=== PATIENT | female | born 1940 | race Caucasian/White ===

== ENCOUNTER 2018-06-30 14:42 | Outpatient (REF) | payer SELFPAY | END 2018-06-30 14:43 | LOC: OM 14:42 | PROVIDERS: PCP Nurse Practitioner; Visit Provider Nurse Practitioner Family | DX: Z11.1 Encounter for screening for respiratory tuberculosis (principal) ==

== ENCOUNTER 2018-07-02 15:54 | Outpatient (REF) | payer SELFPAY | END 2018-07-02 15:55 | LOC: OM 15:54 | PROVIDERS: PCP Nurse Practitioner; Visit Provider Nurse Practitioner Family | DX: Z11.1 Encounter for screening for respiratory tuberculosis (principal) ==

== ENCOUNTER 2018-11-27 10:05 | Outpatient (CLI) | payer MEDICARE, BC, SELFPAY ==
[2018-11-27 10:35] LABS: HCT 43.1 % (36.0-46.0); HGB 14.2 g/dL (12.0-15.5)
[2018-11-27 11:26] LABS: Anion Gap 8.5 mmol/L (3-11); CO2 29.5 mmol/L (21.0-32.0); Chloride 102 mmol/L (98-107); Potassium 3.6 mmol/L (3.5-5.1); Sodium 140 mmol/L (136-145)
== END 2018-11-27 10:25 ==
PROVIDERS: PCP Nurse Practitioner; Visit Provider Obstetrics & Gynecology
DX: N81.10 Cystocele, unspecified (principal); N81.6 Rectocele; Z01.818 Encounter for other preprocedural examination
CPT/HCPCS: 36415; 80051; 86850; 86900; 86901; 85014; 85018

== ENCOUNTER 2018-12-03 09:47 | Observation (INO) | payer MEDICARE, BC, SELFPAY ==
[2018-12-03] VITALS (13 sets, daily range): BP systolic 115–170; BP diastolic 54–78; PULSE 73–90; RESP 14–18; TEMP 36.5–36.8; O2SAT 94–96
[2018-12-03] MEDS: Lactated Ringers 1,000 ML 125 ML IV ×2 (10:40→17:03)
--- NOTE | 2018-12-03 15:27 | VAG_PTH ---
PATIENT: FANNIE DALLAS LOC: OBS U#:[id number] AGE/SX: 78/F ROOM: OBS.306 RE12/03/[address]: Aga Freeman MD : [id number] BED: A DIS: 12/04/2018 SPEC #: [id number] RECD: 12/03/18 16:20 STATUS: ALEXIS REQ #: [id number] NICHOL: 12/03/18 15:[address]: Aga Freeman DEPT: Surgical Specimen RECD BY: Sarah Pulliam ENTERED: 12/03/18 16:21 SP TYPE: VAG OTHR DR: Jessica Simeon Tissues: 1 - VAGINAL BIOPSY Procedures: GROSS AND MICRO LEVEL 2 Comments: [id number]
[2018-12-03] MEDS: Ketorolac 30 MG/ML VIAL IVP ×2 (17:12→23:24)
[2018-12-03] MEDS: Docusate Sodium 100 MG CAP PO (20:37)
[2018-12-04 00:26] VITALS: BP 117/87; PULSE 77; RESP 18; TEMP 36.9; O2SAT 99
[2018-12-04] MEDS: Ketorolac 30 MG/ML VIAL IVP (04:02)
[2018-12-04 04:16] VITALS: BP 111/48; PULSE 80; RESP 18; TEMP 36.9
[2018-12-04 08:00] VITALS: BP 134/64; PULSE 81; RESP 16; TEMP 36.9; O2SAT 94
[2018-12-04] MEDS: Docusate Sodium 100 MG CAP PO (08:24)
[2018-12-04] MEDS: Multivitamin w/Minerals TAB 1 TAB PO (08:24)
[2018-12-04] MEDS: Calcium Carbonate 1.5 GM TAB PO (08:24)
[2018-12-04] MEDS: Omeprazole 20 MG CAPCR PO (08:25)
--- NOTE | 2018-12-04 14:15 | ROE_ITS ---
DATE OF PROCEDURE: December 03, 2018 PREOPERATIVE DIAGNOSIS: Cystocele and rectocele. POSTOPERATIVE DIAGNOSIS: Cystocele and rectocele. PROCEDURE: Anterior colporrhaphy. SURGEON: Aga Freeman M.D. COMMERCIAL FIELD INSPECTOR: Yohana Boothe M.D. ANESTHESIA: General. COMPLICATIONS: None. ESTIMATED BLOOD LOSS: 250 cc FLUID: Per Anesthesia records. SPECIMENS: Vaginal epithelium. FINDINGS: Fourth degree cystocele and minimal rectocele at end of procedure. PROCEDURE: The patient was taken to the Operating Room where she was properly identified. She was then placed on the operating table in the dorsal supine position and general anesthesia was induced without difficulty. The patient was then placed in the dorsal lithotomy position and prepped and draped in sterile fashion. A formal time-out procedure was then performed confirming patient and procedure. A Chu catheter was placed. The posterior vagina was tagged laterally with Allis clamps above the defect. A transverse incision was made between the Allis clamps with a 15 blade. Then, using the Metzenbaum scissors, the midline vaginal mucosa was undermined to a level approximately 3 mm from the urethra. The bladder was dissected off the vaginal epithelium both sharply and bluntly. Once the cystocele was entirely reduced two Kellie plication sutures were placed at the UV junction with #2-0 Vicryl. The remainder of the fascia was reapproximated with #2-0 Vicryl in an interrupted fashion. Once the defect was completely closed, the vaginal mucosa was trimmed and the vaginal mucosa was closed with #0 Vicryl in a running fashion. The rectocele was reinspected. It was minimal. Thus, it was decided not to repair as there was good pelvic support. The vagina was packed with Kerlix impregnated with Premarin vaginal cream. The Chu was left in situ. Sponge, lap, needle, and instrument counts were correct x2. The patient was taken to the Recovery Room in stable condition.
--- NOTE | 2018-12-05 15:04 | W.PM.OP ---
Date of service: 12/03/18 Time of Service: 10:00 Operative Note PRE-OP DIAGNOSIS: cystocele POST-OP DIAGNOSIS: same PROCEDURE: anterior colporraphy SURGEON: Aga Freeman ASSISTING SURGEON: Yohana Boothe ANESTHESIA: GETA ESTIMATED BLOOD LOSS: 300 PATHOLOGY: other (vaginal epithelium) COMPLICATIONS: None Patient was transported to: PACU Patient's condition: stable Implants: none Indications: 4th degree midline cystocele Findings: 4th degree cystocele Procedure Description: Patient was taken to the operating room where she was properly identified. She was then placed on the table in dorsal supine position general anesthesia was induced without difficulty then she was placed in dorsal lithotomy position prepped and draped in normal sterile fashion. A formal timeout procedure was then performed confirming patient and procedure. A posterior weighted speculum was then placed the most caudal aspect of the anterior fascial defect was found in the vaginal epithelium with grasped laterally beyond defect the midline of the anterior vaginal epithelium was undermined and injected with quarter percent Marcaine with epinephrine. A transverse incision was made in the posterior vaginal wall between the Allis clamps the vaginal mucosa was undermined with the Metzenbaums scissors and incised to the level approximately 3 cm 3 mm below the urethral opening. The vaginal epithelium was dissected away from the bladder posteriorly both sharply and bluntly the edges of the pupil vesicular fascia were identified laterally
== END 2018-12-04 13:45 | disposition home or self-care (01) ==
LOC: PDS 16:17 → OBS 18:23 → PDS 12-05 16:04
PROVIDERS: Admitting Provider Obstetrics & Gynecology; PCP Nurse Practitioner; Visit Provider Obstetrics & Gynecology
PROC: 0JQC0ZZ Repair Pelvic Region Subcutaneous Tissue and Fascia, Open Approach (ICD-10-PCS; CPT 57260; principal; 2018-12-03 11:30)
DX: N81.11 Cystocele, midline (principal); N81.6 Rectocele; K21.9 Gastro-esophageal reflux disease without esophagitis
CPT/HCPCS: 57240; 88305; 88302; J0690; J1885

== ENCOUNTER 2019-05-08 10:04 | Outpatient (CLI) | payer MEDICARE, BC, SELFPAY ==
[2019-05-08 11:23] LABS: HCT 42.7 % (36.0-46.0); HGB 14.1 g/dL (12.0-15.5); Mean Corpuscular Hemoglobin 28.8 pg (27.0-33.0); Mean Corpuscular Volume 87.3 fL (80-95); Mean Platelet Volume 10.5 fL (8.0-11.0); Platelet Count 269 x1000/uL (130-400); RBC 4.89 m/cumm (4.00-5.20); RBC Distribution Width 13.3 % (11.7-14.6); White Blood Cell Count 7.43 k/cumm (4.4-10.8)
[2019-05-08 11:38] LABS: ALT 18 U/L (12-78); AST 20 U/L (15-37); Albumin 3.7 g/dL (3.4-5.0); Alkaline Phosphatase 132 U/L (46-116); Anion Gap 9.6 mmol/L (3-11); BUN 21 mg/dL (7-18); Bilirubin, Total 0.4 mg/dL (0.2-1.0); CO2 29.4 mmol/L (21.0-32.0); CREATININE 0.72 mg/dL (0.55-1.02); Calcium 9.3 mg/dL (8.5-10.1); Chloride 101 mmol/L (98-107); Glucose 96 mg/dL (70-100); Potassium 3.5 mmol/L (3.5-5.1); Sodium 140 mmol/L (136-145); Total Protein 7.3 g/dL (6.4-8.2)
== END 2019-05-08 10:24 ==
PROVIDERS: PCP Nurse Practitioner; Visit Provider Obstetrics & Gynecology
DX: N81.10 Cystocele, unspecified (principal); R53.83 Other fatigue
CPT/HCPCS: 36415; 80053; 85027; 86850; 86900; 86901

== ENCOUNTER 2019-05-08 13:11 | Outpatient (CLI) | payer MEDICARE, BC, SELFPAY | END 2019-05-08 13:31 | PROVIDERS: PCP Nurse Practitioner; Visit Provider Obstetrics & Gynecology | DX: Z01.810 Encounter for preprocedural cardiovascular examination (principal); R00.0 Tachycardia, unspecified; N81.10 Cystocele, unspecified; R53.83 Other fatigue | CPT/HCPCS: 36415; 80053; 85027; 86850; 86900; 86901; 93005; 93010 ==

== ENCOUNTER 2019-05-11 12:53 | Outpatient (REF) | payer MEDICARE, BC, SELFPAY ==
[2019-05-11 18:39] LABS: TSH (W/Ref FT4) 1.11 uIU/mL (0.358-3.74)
== END 2019-05-11 13:13 ==
LOC: NCHCN 12:53
PROVIDERS: PCP Nurse Practitioner; Visit Provider Family Medicine
DX: R00.0 Tachycardia, unspecified (principal)
CPT/HCPCS: 84443

== ENCOUNTER 2019-05-14 11:41 | Observation (INO) | payer MEDICARE, BC, SELFPAY ==
[2019-05-08 13:27] VITALS: BP 135/78; PULSE 118; RESP 18; TEMP 37.1; O2SAT 94
[2019-05-08 13:31] VITALS: BP 135/78; PULSE 118; RESP 18; TEMP 37.1; O2SAT 94
--- NOTE | 2019-05-08 14:58 | NUR.NOTE ---
PT SCHEDULED FOR PRE OP VISIT AT 11:00 THIS MORNING. PT NO SHOWED, [facility] NOTIFIED AND PT WAS CONTACTED BY THE OFFICE. PT CAME TO PRE OP AT 1300. HISTORY AND MEDICATIONS WERE REVIEWED WITH PT AND VITAL SIGNS TAKE. PT WAS NOTED TO HAVE A HIGH PULSE AT 118. AFTER VERIFYING INFORMATION WITH PT IT WAS APPARENT THAT THE PT WAS UNCLEAR ABOUT WHAT THE SURGICAL PROCEDURE WAS GOING TO BE STATING I'VE HAD A PARTIAL HYSTERECTOMY THIS TIME SHE'S GOING TO TAKE MY OVARIES AND SEW IT UP [facility] WAS CONTACTED DUE TO SCHEDULED SURGERY AND PT'S KNOWLEDGE OF PROPOSED PROCEDURE NOT AGREEING. PT WAS SENT FOR EKG, WHILE WAITING TO HEAR FROM DR. COATES. EKG WAS COMPLETED AND REVIEWED BY KURT SILVA CRNA WHO ENCOURAGED PT TO SPEAK WITH DR. COATES REGARDING FAST HEART RATE AND TO BE SEEN BY PCP. [facility] REQUESTED THAT PT RETURN TO THE OFFICE TO BE SEEN BY DR. COATES. THIS NURSE ESCORTED PT TO [facility] AND WAS WITNESS TO DR. COATES CLARIFYING THE VAGINAL LE FORT PROCEDURE, WHICH DID NOT INVOLVE TAKING OUT THE OVARIES THAT WOULD BE A DIFFERENT PROCEDURE, PT STATED OH WELL, JUST LEAVE THEM THERE THEN. THE EKG WAS REVIEWED BY DR. COATES, I RELAYED KURT SILVA'S RECOMMENDATIONS TO HER. DR. COATES DID ASK THE PT TO FOLLOW UP WITH HER PCP, PT DID STATE THAT SHE IS NOT HAPPY WITH PCP, STATES SHE DOESN'T HEAR ME, WE DON'T SEE EYE TO EYE. ENCOURAGED HER TO FIND SOMEONE THAT SHE WOULD LIKE TO SEE FOR HER CARE AND TO LET HER OFFICE KNOW, SO THAT SHE COULD SEND A NOTE WITH ALONG WITH THE EKG. PT WAS AGREEABLE TO TRYING A NEW OFFICE. ursing Note:
[2019-05-14] VITALS (12 sets, daily range): BP systolic 140–177; BP diastolic 56–97; PULSE 74–93; RESP 13–20; TEMP 35.9–37; O2SAT 90–97
[2019-05-14] MEDS: Lactated Ringers 1,000 ML 125 ML IV ×3 (08:37→20:28)
--- NOTE | 2019-05-14 10:43 | W.PM.HP.N ---
Date of service: 05/14/19 Time of Service: 10:43 Assessment and Plan (1) Vaginal prolapse: Current visit: Yes Status: Acute [place] r/b/a reviewed with patient consent signed at preop History of Present Illness Chief Complaint: vaginal prolapse Narrative: 78 yo female s/p ant/posterior repair within the year and now has failure with vaginal prolapse options pessary, sacrospinous ligament fixation and [place] discussed with patient Review of Systems Review of Systems All systems reviewed & are unremarkable except as noted in HPI and below PFSH Medical History Basal cell carcinoma, face GERD (gastroesophageal reflux disease) Surgical History Abdominal hysterectomy bladder sling Social History Smoking/Tobacco Use Status: Former Tobacco Use Drug use: Never Number of Children: 3 Pets and animals: Yes Sexually active: No Do you think of yourself as: straight/heterosexual Current gender identity: female Meds Home Medications Medication Instructions Recorded Confirmed Type cholecalciferol (vitamin D3) 1,000 unit PO DAILY 06/12/16 05/14/19 History [Vitamin D3] zwvobaizrbug-dktw-wnvlu acid 1 ea PO DAILY 06/12/16 05/14/19 History [Daily Multiple Tablet] omeprazole 20 mg PO DAILY tab-cap 06/12/16 05/14/19 History estradiol [Estrace] 42.5 gm VG DAILY #1 tube 08/02/16 05/08/19 History calcium carbonate 600 mg calcium 600 mg PO BID tab 11/27/18 05/14/19 History (1,500 mg) tablet metoprolol succinate ER 25 mg 25 mg PO DAILY 05/11/19 05/14/19 History tablet,extended release 24 hr Allergies Allergy/AdvReac Type Severity Reaction Status Date / Time No Known Allergies Allergy Unverified 05/14/19 08:15 Exam Narrative Exam Narrative: 78 yo cooperative alert oriented x3 Neck Neck: normal visual inspection Resp Effort & Inspection: normal respiratory effort Auscultation: clear to auscultation bilaterally Cardio Rate: other Rhythm: regular rhythm Heart Sounds: S1 normal and S2 normal Speculum Exam - Vagina: other (complete vaginal prolapse) Results Last Vital Signs Temp 35.9 C L 05/14/19 08:04 Pulse 92 H 05/14/19 08:04 Resp 18 05/14/19 08:04 BP 161/74 H 05/14/19 08:04 Pulse Ox 96 05/14/19 08:04
[2019-05-14] MEDS: ceFAZolin 2 GM/50 ML BAG IVPB (10:45)
--- NOTE | 2019-05-14 11:47 | W.PM.DS.N ---
DS: Diagnosis Discharge Diagnosis (1) Vaginal prolapse: Status: Acute Discharge Plan Disposition Patient Disposition: HOME Condition: Stable Discharge Details Reason For Visit: VAGINAL PROLAPSE Admit Date/Time: 05/14/19 11:41 Admit Provider: Aga Freeman Attending Provider: Aga Freeman Primary Care Provider: Jessica Simeon Hospital Course Hospital Course: 05/14/19 admitted as observation and underwent [place] procedure without difficulty. Postop course uneventful, pain controlled, voiding well and ambulating well Discharged home 05/15/19 in stable condition. Home Meds and New Rx's Prescriptions: New acetaminophen [Mapap Extra Strength] 500 mg Tablet 500 mg PO Q4H PRN PRNQty: 30 RF: 0 Continued calcium carbonate [Calcium 600] 600 mg calcium (1,500 mg) tablet 600 mg PO BID RF: 0 omeprazole 20 MG capsule,delayed release(DR/EC) 20 mg PO DAILY RF: 0 cholecalciferol (vitamin D3) [Vitamin D3] 1,000 UNIT capsule 1,000 unit PO DAILY RF: 0 Daily Multiple 1 EACH tablet 1 ea PO DAILY RF: 0 Discontinued estradiol [Estrace] 42.5 GM cream 42.5 gm VG DAILY Qty: 1 RF: 1 No Action ibuprofen [Advil] 200 mg tablet 200 mg PO PRN RF: 0 metoprolol succinate 25 mg tablet extended release 24 hr 50 mg PO DAILY RF: 0 Discharge Instructions Stand Alone Forms: [facility] Post Gynecology Surgery, Nursing Discharge Form Referrals: Aga Freeman [ [facility] STAFF PHYSICIAN] - 05/27/19 2:00 pm Activity:: Activity as Tolerated Equipment/Supplies:: No Equipment Needed Diet:: As Tolerated Discharge Orders Discharge Orders: Discharge Order (Routine); Ordered 05/15/19 Ordered By: Aga Freeman Discharge Data Discharge Date/Time-TO BE ENTERED AT DEPARTURE: 05/15/19 09:24 DS: Data Vitals/I&O Vitals and I&O: Vital Signs Temperature 35.9 C L 05/14/19 08:04 Pulse 92 H 05/14/19 08:04 Pulse Rhythm Regular 05/14/19 08:04 Respiratory Rate 18 05/14/19 08:04 Respiratory Effort Non-Labored 05/14/19 08:04 Respiratory Depth Normal 05/14/19 08:04 Respiratory Pattern Normal 05/14/19 08:04 Blood Pressure 161/74 H 05/14/19 08:04 Pulse Oximetry 96 05/14/19 08:04 Oxygen Delivery Method Room Air 05/14/19 08:04 Oxygen Flow Rate 0 05/14/19 08:04 Pain Level 0 05/14/19 08:04 Intake & Output 05/13/19 05/13/19 05/14/19 11:59 23:59 11:59 Intake Total 50 / 50 Balance 50 / 50 Weight 71.2 kg Intake: IV 50 / 50 Other: Urine Color Pale Urine Appearance Clear PFSH Medical History (Updated 06/09/19 @ 10:31 by Kim [employer]) Basal cell carcinoma, face GERD (gastroesophageal reflux disease) Tachycardia (Acute) Surgical History (Updated 06/09/19 @ 10:29 by Kim [employer]) History of abdominal hysterectomy (Acute) History of bladder suspension procedure (Acute) History of cholecystectomy (Chronic) History of lumbar discectomy (Acute) History of umbilical hernia repair (Acute) Status post biopsy of thyroid gland (Acute) Family History (Updated 06/09/19 @ 10:21 by Kim [employer]iposthallie) Father Lymphoma Social History (Updated 06/09/19 @ 10:21 by Kim [employer]iposthallie) Smoking/Tobacco Use Status: Former Tobacco Use Quit Date: 11/25/99 Tobacco: How many years used: 30 Alcohol Intake: never Drug use: Never Number of Children: 3 Do you need help understanding health information?: Rarely current occupation: Retired Pets and animals: Yes Sexually active: No Do you think of yourself as: straight/heterosexual Current gender identity: female
[2019-05-14] MEDS: Calcium Carbonate 1.5 GM TAB 0.6 GM PO (20:25)
[2019-05-14] MEDS: Docusate Sodium 100 MG CAP PO (20:25)
[2019-05-14] MEDS: Acetaminophen 500 MG TAB PO (20:51)
[2019-05-15] MEDS: Lactated Ringers 1,000 ML 125 ML IV (03:04)
[2019-05-15] MEDS: Acetaminophen 500 MG TAB PO (03:20)
[2019-05-15 04:01] VITALS: BP 123/80; PULSE 95; RESP 18; TEMP 37.2; O2SAT 93
[2019-05-15 07:20] VITALS: BP 127/85; PULSE 69; RESP 18; TEMP 36.6; O2SAT 100
[2019-05-15] MEDS: Calcium Carbonate 1.5 GM TAB 0.6 GM PO (07:47)
[2019-05-15] MEDS: Omeprazole 20 MG CAPCR PO (07:47)
[2019-05-15] MEDS: Docusate Sodium 100 MG CAP PO (07:47)
[2019-05-15] MEDS: Multivitamin TAB 1 TAB PO (07:47)
[2019-05-15] MEDS: Metoprolol CR 25 MG TABCR PO (07:47)
[2019-05-15] MEDS: Cholecalciferol (Vitamin D3) 1,000 UNIT TAB 1000 UNITS PO (07:48)
--- NOTE | 2019-05-15 08:19 | W.PM.PROGNOT ---
Date of Service Date of service: 05/15/19 Time of Service: 08:20 Assessment and Plan (1) Vaginal prolapse: Current visit: Yes Status: Acute doing well postop ready to go home discharge instructions reviewed follow up 05/27/19 at 2pm Subjective Patient reports: no new complaints, tolerating a regular diet and voiding w/o difficulty Exam Narrative Exam Narrative: awake alert comfortable Resp Effort & Inspection: normal respiratory effort Auscultation: clear to auscultation bilaterally Cardio Rate: regular rate Rhythm: regular rhythm GI Inspection: normal to inspection External Female Exam: other (minimal spotting) Objective Objective Clinical Data: Vital Signs Temperature 37.2 C 05/15/19 04:01 Temperature Source Tympanic 05/15/19 04:01 Pulse 95 H 05/15/19 04:01 Pulse Rhythm Regular 05/15/19 06:00 Respiratory Rate 18 05/15/19 04:01 Respiratory Effort Non-Labored 05/15/19 06:00 Respiratory Depth Normal 05/15/19 06:00 Respiratory Pattern Normal 05/15/19 06:00 Blood Pressure 123/80 05/15/19 04:01 Pulse Oximetry 93 L 05/15/19 04:01 Oxygen Delivery Method Room Air 05/15/19 04:01 Oxygen Flow Rate 0 05/15/19 04:01 Pain Level 4 05/15/19 03:20 Intake & Output 05/14/19 05/14/19 05/15/19 11:59 23:59 11:59 Intake Total 750 / 2412.917 1662.917 / 2412.917 1075 / 1075 Output Total 1200 / 1200 825 / 825 Balance 750 / 1212.917 462.917 / 1212.917 250 / 250 Weight 71.2 kg Intake: IV 750 / 6576.142 8123.917 / 1972.917 825 / 825 Oral 440 / 440 250 / 250 Output: Urine 1200 / 1200 825 / 825 Other: Urine Color Pale Pale Pale Urine Appearance Clear Clear Clear Urine Odor None Emesis Description None None Voiding Methods Toilet
--- NOTE | 2019-05-15 15:17 | PDOC.CMDIS ---
- If Service Date Differs Date of service: 05/15/19 Time of Service: 15:17 LACE Index Scoring Tool - Questions: Length of Stay (in days): 1 Acuity (Admit via E.D.?): No E.D. Visits: 0 - Answers: Total Score: 1 Risk of Readmission: Low Risk Care Management Discharge Reason for Hospitalization: vaginal prolapse Discharge Plan: Veena will be discharged home with no additional services.She will be transported via private vehicle with friends or family. She will follow up with her surgeon and discharge plan of care. Patient/Family Education Needs: Discharge plan, limitations, follow up plan of care, Ask Me Three.
--- NOTE | 2019-05-18 10:34 | ROE_ITS ---
DATE OF PROCEDURE: May 14, 2019 PREOPERATIVE DIAGNOSIS: Vaginal prolapse. POSTOPERATIVE DIAGNOSIS: Same. PROCEDURE: Vaginal [place]. SURGEON: Aga Freeman M.D. PHYSICAL THERAPIST AIDE: Willie Enciso M.D. ANESTHESIA: General. COMPLICATIONS: None. ESTIMATED BLOOD LOSS: < 100 cc's FLUIDS: Per Anesthesia records. FINDINGS: Fourth-degree vaginal prolapse with enterocele. PROCEDURE: The patient was taken to the Operating Room where she was properly identified. She was t hen placed on the operating table in a dorsal supine position. SCD boots were placed. General anest hesia was induced without difficulty. The patient was then placed in the dorsal lithotomy position a nd prepped and draped in the normal sterile fashion. A formal time-out procedure was then performed, confirming patient and procedure. A Chu catheter was placed. The vagina was grasped on the later al edges at the most posterior point and brought to the introitus. Using a marking pen, a square was marked on both the anterior and posterior vagina. This area was then infiltrated with 1% Lidocaine with epinephrine. Along the marked edges of the square a #15 blade was used to incise the tissue. T he tissue was then undermined with the Metzenbaum scissors and the epithelial layer removed anteriorl y. Attention was then turned to the posterior aspect, and again in a similar fashion, along the edges of the already inked square, a #15 blade was used to incise the mucosa. Using the Metzenbaum scissors the tissue was undermined and the square epithelial area excised. Then using #0 Vicryl in an interru pted fashion the anterior to posterior epithelium was approximated. This continued anterior to poste rior in a similar fashion until the entire epithelial layer of anterior and posterior were reapproxim ated. The vagina was then closed. Hemostasis was confirmed. The Chu was left in situ. Sponge, lap, needle and instrument counts were correct x2. The patient was taken to the recovery room in sta ble condition.
== END 2019-05-15 09:24 | disposition home or self-care (01) ==
LOC: MS 12:31
PROVIDERS: Admitting Provider Obstetrics & Gynecology; PCP Nurse Practitioner; Visit Provider Obstetrics & Gynecology
PROC: 0ULG7ZZ Occlusion of Vagina, Via Natural or Artificial Opening (ICD-10-PCS; CPT 57260; principal; 2019-05-14 09:45)
DX: N81.10 Cystocele, unspecified (principal); N81.5 Vaginal enterocele; K21.9 Gastro-esophageal reflux disease without esophagitis
CPT/HCPCS: 57120; 99239; NC; G0378; J0690; J1100; J2405

== ENCOUNTER 2019-05-27 16:49 | Outpatient (CLI) | payer MEDICARE, BC, SELFPAY ==
--- NOTE | 2019-05-27 15:15 | DI.RAD_ITS ---
SYMPTOMS/DIAGNOSIS: RIGHT LOWER LOBE PAIN, R63.4, ABNORMAL WEIGHT LOSS, RIGHT MID BACK PAIN PA AND LATERAL CHEST: There is a moderate-sized right pleural effusion. There is volume loss involving the right lower lobe and prominence of the right hilum. The left lung is clear. The heart is not enlarged. SUMMARY: Moderate-sized right pleural effusion, right hilar prominence is demonstrated. Further assessment with a right thoracentesis and when appropriate a followup with contrast enhanced chest CT is suggested.
== END 2019-05-27 17:09 ==
PROVIDERS: PCP Nurse Practitioner; Visit Provider Obstetrics & Gynecology
DX: R63.4 Abnormal weight loss (principal); R07.89 Other chest pain; J90 Pleural effusion, not elsewhere classified; R91.8 Other nonspecific abnormal finding of lung field
CPT/HCPCS: 71046

== ENCOUNTER → 2019-06-04 08:36 | Outpatient (BNVA) | payer MEDICARE, BC, SELFPAY | PROVIDERS: PCP Nurse Practitioner Family; Referring Provider Nurse Practitioner; Visit Provider Surgery | DX: J90 Pleural effusion, not elsewhere classified (principal); R10.13 Epigastric pain | CPT/HCPCS: 99202; 99214 ==

== ENCOUNTER 2019-06-04 11:09 | Outpatient (CLI) | payer MEDICARE, BC, SELFPAY ==
--- NOTE | 2019-06-04 10:30 | DI.CT_ITS ---
SYMPTOMS/DIAGNOSIS: EPIGASTRIC PAIN, DYSPHAGIA, RIGHT PLEURAL EFFUSION, R10.13, J90 CT SCAN OF THE CHEST AND ABDOMEN: CT SCAN OF THE CHEST: Comparison chest x-ray is 05/27/19. Multiple contiguous axial images of the chest were obtained. There is a 3.1 x 3.3 cm soft tissue mass in the left suprahilar region. There are multiple hypodense lesions seen within the thyroid gland, the largest appears to lie in the right thyroid gland and measures 1.1 cm. Nonemergent thyroid ultrasound may be considered for further evaluation. There are enlarged mediastinal and right hilar lymph nodes. There is a 1.5 x 1.1 cm right paratracheal lymph node. There is a 1.3 x 2.0 cm subcarinal lymph node. There is a 2.1 cm right hilar lymph node. There is a 2.6 x 3.4 cm mass in the medial aspect of the right upper lobe suspicious for neoplasm. There is consolidation seen in the right lower lobe. This may represent atelectasis or pneumonia. There is a large right pleural effusion. No evidence of a left pleural effusion is seen. There is focal nodular thickening seen of the diaphragmatic pleura (series 3 image 512). There is also focal thickening seen at the parietal pleural surface inferiorly and medially (series 3 image 481). This area measures 1.8 x 0.7 cm. There is atherosclerosis of the thoracic aorta but no aneurysmal dilatation is present. The heart size is within normal limits. No significant pericardial effusion is seen. There is a destructive lesion of the posterior aspect of the right 10th rib with associated soft tissue mass. There does appear to be some erosive change of the adjacent cortex of the right transverse process of the D10 vertebra. IMPRESSION: 1. Mass in the medial aspect of the right upper lobe suspicious for neoplasm. 2. Left supraclavicular and mediastinal adenopathy, large right pleural effusion, thickening of the right diaphragmatic and parietal pleural surfaces and a right 10th rib destructive lesion. These findings are most suspicious for metastatic disease. 3. Right lower lobe area of consolidation. This may represent atelectasis or pneumonia. 4. Multiple nonspecific thyroid nodules. Nonemergent thyroid ultrasound may be considered for further evaluation. 5. PET/CT scan should be considered for further evaluation. CT SCAN OF THE ABDOMEN: There is a 1 x 1.1 cm hypodense lesion in the medial aspect of the posterior segment of the right lobe of the liver (series 5 image 188). There is an area of decreased attenuation seen along the dome of the right lobe of the liver measuring 1.3 x 1 cm (series 5 image 93). Given the findings in the chest, metastatic disease should be considered. There are two tiny hypodensities seen in the left lobe of the liver. They are too small for further characterization, but may reflect cysts. The patient is status post cholecystectomy. There is no biliary ductal dilatation. The pancreas is unremarkable, as are the spleen and adrenal glands. The kidneys show normal and symmetric enhancement. No evidence of a solid renal mass or obstruction. There is atherosclerosis of the abdominal aorta, but no aneurysmal dilatation is present. There is adenopathy seen in the retroperitoneum and retrocrural region. There is a 1.1 x 1.3 cm lymph node in the retrocrural region on the right. There is adenopathy in the upper abdomen superior to the celiac axis. This measures in aggregate 4.2 x 3.8 cm. There is a 1.5 x 2.2 cm left periaortic lymph node. On the most inferior images, there appears to be soft tissue in the anterior abdomen suspicious for omental metastatic disease. The visualized bowel shows no evidence of obstruction or inflammation. No abdominal ascites is seen. No pneumoperitoneum is present. Degenerative changes are seen in the spine. IMPRESSION: 1. Hypodense lesion seen in the liver suspicious for metastases. 2. Enlarged lymph nodes in the upper abdomen suspicious for metastases. 3. Soft tissue seen at the inferior-most images of the abdominal cavity anteriorly. The findings are suspicious for omental metastatic disease. 4. CT scan of the pelvis is recommended to evaluate for extent of disease process. PET/CT scan should be considered for further evaluation.
[2019-06-04] MEDS: Breeza Beverage 473 ML BTL PO (12:06)
[2019-06-04] MEDS: Omnipaque 350 MG/ML 50 ML BTL PO (12:07)
[2019-06-04] MEDS: Omnipaque 350 MG/ML 100 ML BTL IV (12:07)
== END 2019-06-04 11:29 ==
PROVIDERS: PCP Nurse Practitioner Family; Visit Provider Surgery
DX: R10.13 Epigastric pain (principal); R13.10 Dysphagia, unspecified; J90 Pleural effusion, not elsewhere classified; R59.0 Localized enlarged lymph nodes; E04.8 Other specified nontoxic goiter; K76.89 Other specified diseases of liver; K66.8 Other specified disorders of peritoneum; R91.8 Other nonspecific abnormal finding of lung field
CPT/HCPCS: 99214; 71260; 74160; J3490; Q9967

== ENCOUNTER 2019-07-13 01:33 | Outpatient (CLI) | payer MEDICARE, BC, SELFPAY ==
--- NOTE | 2019-07-13 10:18 | DI.RAD_ITS ---
SYMPTOM/DIAGNOSIS: F/U RECURRENT RT PLEURAL EFFUSION, S/P PLEURAL BIOPSY J90 PA AND LATERAL CHEST: 07/13 The examination is compared to previous examination of 05/27/19. The patient reportedly has a history of lung carcinoma. There is increasing size of a right pleural effusion in comparison with the prior examination. Right suprahilar mass again noted, grossly unchanged. The left lung is clear. No left pleural effusion seen. CONCLUSION: Increasing size right pleural effusion.
== END 2019-07-13 01:53 ==
PROVIDERS: PCP Nurse Practitioner; Visit Provider Thoracic Surgery (Cardiothoracic Vascular Surgery)
DX: J90 Pleural effusion, not elsewhere classified (principal); Z85.118 Personal history of other malignant neoplasm of bronchus and lung
CPT/HCPCS: 71046

== ENCOUNTER 2019-07-13 11:09 | Emergency (ER) | payer MEDICARE, BC, SELFPAY ==
--- NOTE | 2019-07-13 11:25 | W.ED.GENAD ---
Discharge Plan Disposition Patient Disposition: HOME Discharge Details Clinical Impression: Pleural effusion on right Primary Care Provider: Maddie Rosenthal ED Provider: Jerry Crain Home Meds and New Rx's Prescriptions: No Action calcium carbonate [Calcium 600] 600 mg calcium (1,500 mg) tablet 600 mg PO BID RF: 0 ibuprofen [Advil] 200 mg tablet 200 mg PO PRN RF: 0 omeprazole 20 MG capsule,delayed release(DR/EC) 20 mg PO DAILY RF: 0 cholecalciferol (vitamin D3) [Vitamin D3] 1,000 UNIT capsule 1,000 unit PO DAILY RF: 0 Daily Multiple 1 EACH tablet 1 ea PO DAILY RF: 0 metoprolol succinate 25 mg tablet extended release 24 hr 50 mg PO DAILY RF: 0 acetaminophen [Mapap Extra Strength] 500 mg Tablet 500 mg PO Q4H PRN PRNQty: 30 RF: 0 Discharge Instructions Instructions: Pleural Effusion (ED) Additional Instructions: Please follow-up with your oncologist. Please contact your primary care physician to arrange follow-up. Return to the ER for any worsening or new concerning symptoms. Referrals: Maddie Rosenthal, TJ [Primary Care Provider] - Medical Decision Making 70-year-old female with lung cancer, sent here erroneously for initial concern for pulmonary embolism on chest x-ray. Chest x-ray that was performed outpatient today was reviewed and interpreted by radiology as increasing size right pleural effusion. Patient is saturating well in no respiratory distress. Plan will be for her to follow-up with her oncologist. Usual customary discharge instructions were provided. HPI General Mode of arrival: ambulatory. Date/Time Provider Initiated Documentation: 07/13/19 11:17. Limitations to Documentation: no limitations. Information obtained by: patient. HPI Narrative: 78-year-old female with newly diagnosed non-small cell lung cancer with plan to start chemotherapy today, sent to the ED by nurse practitioner cancer with concerned that chest x-ray showed a pulmonary embolism. After the patient arrived in the emergency department, the nurse practitioner at the cancer center called again noting that in fact patient does not have a pulmonary embolism and that she does not need ED evaluation and should be return to the cancer center. Related Data Home Medications Medication Instructions Recorded Confirmed Daily Multiple 1 ea PO DAILY 06/12/16 06/04/19 cholecalciferol (vitamin D3) 1,000 unit PO DAILY 06/12/16 06/04/19 [Vitamin D3] omeprazole 20 mg PO DAILY tab-cap 06/12/16 06/04/19 calcium carbonate 600 mg calcium 600 mg PO BID tab 11/27/18 06/04/19 (1,500 mg) tablet acetaminophen [Mapap Extra 500 mg PO Q4H PRN PRN #30 tab 05/15/19 06/04/19 Strength] metoprolol succinate 25 mg 50 mg PO DAILY tab 05/27/19 06/04/19 tablet,extended release 24 hr ibuprofen 200 mg tablet 200 mg PO PRN tab 06/04/19 06/04/19 Previous Rx's Medication Instructions Recorded acetaminophen [Mapap Extra 500 mg PO Q4H PRN PRN #30 tab 05/15/19 Strength] Allergies Allergy/AdvReac Type Severity Reaction Status Date / Time No Known Allergies Allergy Verified 06/04/19 08:54 Review of Systems Constitutional Denies fever(s) Cardiovascular Reports chest pain (Pleuritic tightness right lower) and Reports dyspnea on exertion Respiratory Reports dyspnea on exertion [facility] Medical History Basal cell carcinoma, face GERD (gastroesophageal reflux disease) Tachycardia (Acute) Surgical History History of abdominal hysterectomy (Acute) History of bladder suspension procedure (Acute) History of cholecystectomy (Chronic) History of lumbar discectomy (Acute) History of umbilical hernia repair (Acute) Status post biopsy of thyroid gland (Acute) Family History Father Lymphoma Social History Smoking/Tobacco Use Status: Former Tobacco Use Quit Date: 11/25/99 Tobacco: How many years used: 30 Alcohol Intake: never Drug use: Never Number of Children: 3 Do you need help understanding health information?: Rarely current occupation: Retired Pets and animals: Yes Sexually active: No Do you think of yourself as: straight/heterosexual Current gender identity: female Exam Const General: cooperative and no acute distress HENMT Mouth: moist mucous membranes Eyes Conjunctivae: normal conjunctivae Sclera: normal sclerae Neck Neck: trachea midline and supple Resp Effort & Inspection: normal respiratory effort, able to speak in complete sentences and no respiratory distress Auscultation: diminished lung sounds on the right in the lower lung macdonald, no rales, no rhonchi and no wheezes Cardio Jugular venous pressure: no JVD Rate: regular rate and not tachycardic Rhythm: regular rhythm Skin General skin exam: no rashes or lesions noted Neuro General: alert, awake and tone normal Extrem General: no edema
[2019-07-13 11:42] VITALS: PULSE 95; O2SAT 97
== END 2019-07-13 11:43 | disposition home or self-care (01) ==
LOC: ER 11:41
PROVIDERS: Emergency Provider Student in an Organized Health Care Education/Training Program; PCP Nurse Practitioner
DX: J90 Pleural effusion, not elsewhere classified (principal); C34.11 Malignant neoplasm of upper lobe, right bronchus or lung
CPT/HCPCS: 99281; 99282; 71046

== ENCOUNTER 2019-07-20 08:10 | Outpatient (CLI) | payer MEDICARE, BC, SELFPAY ==
[2019-07-20 08:29] LABS: Abs Immature Grans 0.03 k/cumm (0.0-0.09); Absolute Basophil Count 0.02 k/cumm (0.0-0.2); Absolute Eosinophil Count 0.21 k/cumm (0.0-0.7); Absolute Lymphocyte Count 0.93 k/cumm (1.2-3.4); Absolute Monocyte Count 0.49 k/cumm (0.11-0.7); Absolute Neutrophil Count 5.15 k/cumm (1.2-6.7); Basophils % 0.3; Eosinophils % 3.1; HCT 39.3 % (36.0-46.0); HGB 13.2 g/dL (12.0-15.5); Immature Grans % 0.4; Lymphocytes % 13.6; Mean Corp. HGB Concentration 33.6 g/dL (32.0-36.0); Mean Corpuscular Volume 86.4 fL (80-95); Mean Platelet Volume 9.5 fL (8.0-11.0); Monocytes % 7.2; Neutrophils % 75.4; Platelet Count 344 x1000/uL (130-400); RBC 4.55 m/cumm (4.00-5.20); RBC Distribution Width 12.9 % (11.7-14.6); White Blood Cell Count 6.83 k/cumm (4.4-10.8)
[2019-07-20 08:48] LABS: ALT 21 U/L (14-59); AST 20 U/L (15-37); Albumin 2.9 g/dL (3.4-5.0); Alkaline Phosphatase 98 U/L (46-116); Anion Gap 6.8 mmol/L (3-11); BUN 17 mg/dL (7-18); Bilirubin, Total 0.5 mg/dL (0.2-1.0); CO2 33.2 mmol/L (21.0-32.0); CREATININE 0.86 mg/dL (0.55-1.02); Chloride 96 mmol/L (98-107); Glucose 107 mg/dL (70-100); Sodium 136 mmol/L (136-145); Total Protein 6.6 g/dL (6.4-8.2)
[2019-07-20 08:53] LABS: Potassium 2.9 mmol/L (3.5-5.1)
== END 2019-07-20 08:30 ==
PROVIDERS: PCP Nurse Practitioner; Visit Provider Registered Nurse Oncology
DX: C77.9 Secondary and unspecified malignant neoplasm of lymph node, unspecified (principal)
CPT/HCPCS: 36415; 80053; 85025

== ENCOUNTER 2019-07-28 01:14 | Outpatient (CLI) | payer MEDICARE, BC, SELFPAY ==
[2019-07-28 10:09] LABS: Abs Immature Grans 0.01 k/cumm (0.0-0.09); Absolute Basophil Count 0.02 k/cumm (0.0-0.2); Absolute Eosinophil Count 0.05 k/cumm (0.0-0.7); Absolute Lymphocyte Count 0.88 k/cumm (1.2-3.4); Absolute Monocyte Count 0.52 k/cumm (0.11-0.7); Absolute Neutrophil Count 2.76 k/cumm (1.2-6.7); Basophils % 0.5; Eosinophils % 1.2; HCT 38.2 % (36.0-46.0); Immature Grans % 0.2; Lymphocytes % 20.8; Mean Corpuscular Volume 85.1 fL (80-95); Mean Platelet Volume 9.2 fL (8.0-11.0); Monocytes % 12.3; Platelet Count 302 x1000/uL (130-400); RBC 4.49 m/cumm (4.00-5.20); RBC Distribution Width 13.3 % (11.7-14.6); White Blood Cell Count 4.24 k/cumm (4.4-10.8)
[2019-07-28 10:32] LABS: ALT 23 U/L (14-59); AST 17 U/L (15-37); Albumin 3.1 g/dL (3.4-5.0); Alkaline Phosphatase 123 U/L (46-116); Anion Gap 10.7 mmol/L (3-11); BUN 18 mg/dL (7-18); Bilirubin, Total 0.4 mg/dL (0.2-1.0); CO2 27.3 mmol/L (21.0-32.0); CREATININE 0.76 mg/dL (0.55-1.02); Calcium 9.4 mg/dL (8.5-10.1); Chloride 97 mmol/L (98-107); Glucose 113 mg/dL (70-100); Potassium 3.2 mmol/L (3.5-5.1); Sodium 135 mmol/L (136-145); Total Protein 6.9 g/dL (6.4-8.2)
== END 2019-07-28 01:34 ==
PROVIDERS: PCP Nurse Practitioner; Visit Provider Registered Nurse Oncology
DX: C77.9 Secondary and unspecified malignant neoplasm of lymph node, unspecified (principal)
CPT/HCPCS: 36415; 80053; 85025

== ENCOUNTER 2019-08-03 01:06 | Outpatient (CLI) | payer MEDICARE, BC, SELFPAY ==
[2019-08-03 08:51] LABS: Abs Immature Grans 0.02 k/cumm (0.0-0.09); Absolute Basophil Count 0.03 k/cumm (0.0-0.2); Absolute Eosinophil Count 0.04 k/cumm (0.0-0.7); Absolute Monocyte Count 0.51 k/cumm (0.11-0.7); Absolute Neutrophil Count 5.07 k/cumm (1.2-6.7); Basophils % 0.4; Eosinophils % 0.6; HCT 38.4 % (36.0-46.0); Immature Grans % 0.3; Lymphocytes % 16.2; Mean Corp. HGB Concentration 33.9 g/dL (32.0-36.0); Mean Corpuscular Hemoglobin 29.1 pg (27.0-33.0); Mean Corpuscular Volume 86.1 fL (80-95); Mean Platelet Volume 9.3 fL (8.0-11.0); Monocytes % 7.5; Platelet Count 294 x1000/uL (130-400); RBC 4.46 m/cumm (4.00-5.20); White Blood Cell Count 6.77 k/cumm (4.4-10.8)
[2019-08-03 09:19] LABS: ALT 19 U/L (14-59); AST 17 U/L (15-37); Albumin 3.4 g/dL (3.4-5.0); Alkaline Phosphatase 102 U/L (46-116); Anion Gap 11.1 mmol/L (3-11); BUN 21 mg/dL (7-18); Bilirubin, Total 0.5 mg/dL (0.2-1.0); CO2 27.9 mmol/L (21.0-32.0); CREATININE 0.77 mg/dL (0.55-1.02); Calcium 9.4 mg/dL (8.5-10.1); Chloride 99 mmol/L (98-107); FREE T4 1.46 ng/dL (0.76-1.46); Glucose 98 mg/dL (70-100); LDH 148 U/L (81-234); Potassium 3.4 mmol/L (3.5-5.1); Sodium 138 mmol/L (136-145); TSH 1.01 uIU/mL (0.36-3.74)
== END 2019-08-03 01:26 ==
PROVIDERS: PCP Nurse Practitioner; Visit Provider Registered Nurse Oncology
DX: C77.9 Secondary and unspecified malignant neoplasm of lymph node, unspecified (principal); J91.8 Pleural effusion in other conditions classified elsewhere; C34.91 Malignant neoplasm of unspecified part of right bronchus or lung; Z79.899 Other long term (current) drug therapy
CPT/HCPCS: 36415; 80053; 83615; 84439; 84443; 85025

== ENCOUNTER 2019-08-03 15:24 | Outpatient (CLI) | payer MEDICARE, BC, SELFPAY ==
--- NOTE | 2019-08-03 14:24 | DI.RAD_ITS ---
SYMPTOMS/DIAGNOSIS: INCREASING SHORTNESS OF BREATH AND DYSPNEA ON EXERTION, STAGE IV LUNG CA, RIGHT, C34.91, H/O PLEURAL EFFUSION PA AND LATERAL CHEST: The heart is not enlarged. There is a large right pleural effusion and there has been no gross interval change in appearance in comparison with previous examination of July 13. No left pleural effusion seen. Right hilar prominence noted as seen on previous examination. Findings consistent with pulmonary neoplasm. CONCLUSION: No gross interval change in appearance in comparison with examination of 07/13/19, large right pleural effusion and findings suspicious for neoplasm.
== END 2019-08-03 15:44 ==
PROVIDERS: PCP Nurse Practitioner; Visit Provider Registered Nurse Oncology
DX: R06.02 Shortness of breath (principal); R06.09 Other forms of dyspnea; C34.91 Malignant neoplasm of unspecified part of right bronchus or lung; J90 Pleural effusion, not elsewhere classified; Z79.899 Other long term (current) drug therapy
CPT/HCPCS: 36415; 80053; 71046; 83615; 84439; 84443; 85025

== ENCOUNTER 2019-08-10 01:28 | Outpatient (CLI) | payer MEDICARE, BC, SELFPAY ==
[2019-08-10 09:12] LABS: Abs Immature Grans 0.05 k/cumm (0.0-0.09); Absolute Basophil Count 0.02 k/cumm (0.0-0.2); Absolute Eosinophil Count 0.09 k/cumm (0.0-0.7); Absolute Lymphocyte Count 0.95 k/cumm (1.2-3.4); Absolute Monocyte Count 0.49 k/cumm (0.11-0.7); Absolute Neutrophil Count 3.76 k/cumm (1.2-6.7); Basophils % 0.4; Eosinophils % 1.7; HCT 36.3 % (36.0-46.0); HGB 12.6 g/dL (12.0-15.5); Immature Grans % 0.9; Lymphocytes % 17.7; Mean Corp. HGB Concentration 34.7 g/dL (32.0-36.0); Mean Corpuscular Hemoglobin 29.4 pg (27.0-33.0); Mean Corpuscular Volume 84.8 fL (80-95); Mean Platelet Volume 9.8 fL (8.0-11.0); Monocytes % 9.1; Neutrophils % 70.2; Platelet Count 261 x1000/uL (130-400); RBC 4.28 m/cumm (4.00-5.20); RBC Distribution Width 13.8 % (11.7-14.6); White Blood Cell Count 5.36 k/cumm (4.4-10.8)
[2019-08-10 09:26] LABS: ALT 64 U/L (14-59); AST 34 U/L (15-37); Albumin 3.7 g/dL (3.4-5.0); Alkaline Phosphatase 112 U/L (46-116); Anion Gap 12.9 mmol/L (3-11); BUN 36 mg/dL (7-18); Bilirubin, Total 1.2 mg/dL (0.2-1.0); CO2 26.1 mmol/L (21.0-32.0); CREATININE 1.34 mg/dL (0.55-1.02); Chloride 95 mmol/L (98-107); Estimated GFR 38.25 (mL/min/1.73m2); Glucose 111 mg/dL (70-100); Potassium 3.3 mmol/L (3.5-5.1); Sodium 134 mmol/L (136-145); Total Protein 7.1 g/dL (6.4-8.2)
== END 2019-08-10 01:48 ==
PROVIDERS: PCP Nurse Practitioner; Visit Provider Registered Nurse Oncology
DX: C77.9 Secondary and unspecified malignant neoplasm of lymph node, unspecified (principal)
CPT/HCPCS: 36415; 80053; 85025

== ENCOUNTER 2019-08-14 10:29 | Emergency (ER) | payer MEDICARE, BC, SELFPAY ==
[2019-08-14] VITALS (7 sets, daily range): BP systolic 97–124; BP diastolic 51–82; PULSE 106–128; RESP 16–22; TEMP 36.3–36.4; O2SAT 94–97
--- NOTE | 2019-08-14 11:08 | ED.GENADUL_ITS ---
Discharge Plan Disposition Patient Disposition: HOME Condition: Improving Discharge Details Chief Complaint: Dizzy/Sync Clinical Impression: Acute dehydration, Hypomagnesemia, Hypokalemia, UTI (urinary tract infection) Primary Care Provider: Maddie Rosenthal ED Provider: Ksenia Henriquez Home Meds and New Rx's Prescriptions: New cephalexin [Keflex] 500 mg capsule 500 mg PO BID Qty: 10 RF: 0 promethazine 25 mg tablet 25 mg PO QID PRN (Reason: nausea and vomiting) Qty: 10 RF: 0 Continued calcium carbonate 600 mg calcium (1,500 mg) tablet 600 mg PO DAILY RF: 0 tramadol 50 mg tablet 50 mg PO Q6H PRN (Reason: pain) RF: 0 ondansetron HCl [Zofran] 4 mg tablet 4 mg PO Q6H PRN (Reason: nausea and vomiting) Qty: 60 RF: 2 ibuprofen [Advil] 200 mg tablet 200 mg PO PRN RF: 0 omeprazole 20 MG capsule,delayed release(DR/EC) 20 mg PO DAILY RF: 0 cholecalciferol (vitamin D3) [Vitamin D3] 1,000 UNIT capsule 1,000 unit PO DAILY RF: 0 Daily Multiple 1 EACH tablet 1 ea PO DAILY RF: 0 metoprolol succinate 25 mg tablet extended release 24 hr 50 mg PO DAILY RF: 0 potassium chloride 10 mEq tablet,ER particles/crystals 10 meq PO BID RF: 0 prochlorperazine maleate 10 mg tablet 10 mg PO Q6H PRNRF: 0 olanzapine 2.5 mg tablet 2.5 mg PO QHS RF: 0 diphenhydramine HCl 25 mg capsule 75 mg PO QHS RF: 0 acetaminophen [Mapap Extra Strength] 500 mg Tablet 500 mg PO Q4H PRN PRNQty: 30 RF: 0 Discharge Instructions Instructions: Dehydration (ED), Urinary Tract Infection in Women (ED), Hypomagnesemia (ED) Additional Instructions: Encourage hydration. Please use the Phenergan as prescribed to help with nausea. Please take Keflex as prescribed for urinary tract infection. Please keep appointment on Saturday at [address] Barker. Plan for home health daily. If you develop fever/chills, increased weakness, inability stay hydrated or other new/worsening symptoms please seek care urgently once again. Please begin daily magnesium supplementation. Referrals: Toya Carbajal MD [ [facility]FF PHYSICIAN] - Maddie Rosenthal NP [Primary Care Provider] - Discharge Data Discharge Date/Time-TO BE ENTERED AT DEPARTURE: 08/14/19 15:26 Medical Decision Making Patient is a 78 year old female presenting today with c/c of dizziness. Patient has hx of lung cancer, gerd, pleural effusion. States that this began when she started chemotherapy several weeks ago. Reports that it has progressively been worsening. Symptoms come on when she goes to an upright position, particualry with sudden changes. Was evaluated by home health who dx with orthostatic hypotension as she had >30 point drop in systolic BP per patietn report. Denies SHIPMAN. No visual changes. Endorses generalized weakness that has also been increasing, no focal areas of deficit. Denies fevers/chills. Denies any pain at this time. She lives alone and reports that the dizziness can make it difficult for her to care for her pets. Also noted diminished appetite ad that she has not been eating/drinking much. Concerned for dehydration. She has not been taking her antiemetics as she does not frequently feel significant nauseated. Has home health once weekly at this time. Son in law iwth her who is very attentive. Has upcoming appointment with palliative care. EKG reviewed by Dr. Baig. Patient in sinus tachycardia with rate of 123. No evidence of acute ischmic injury. Shortly after arrival, Dr. Carbajal called regarding the patient. Son in law had contacted the office. Discussed case. Advised that we are planning ot hydrate the patient. I am concerned that she may have some underlying GI upset leading to her diminished PO intake thus her dehydration. Will give Zofran, IV hydration, obtain labs and reevaluate. Dr. Carbajal in agreement with this plan. Labs reviewed. WBC 2.04, Hgb 11.0, K 3.4, BUN 24, magnesium 0.8, TSH normal, Troponin normal UA significant for moderate luekocyte esterase, ketones, protein. While the patietn is not endorsing any urinary symptoms, with her receiving chemotherapy and leukopenia, I feel that treating this with abx is appropriate. Discussed plan with the patient and her family. She is feeling improved but family is concerned about her returning home. She feels much stronger and appears better after IV hydration. She is requesting food. Hydrating orally. Consult with the Dr. Carbajal once again. Discussed plan of care. I discussed that the family is concerned with patient going home and inability to care for herself and likely to have recurrence of her dehydration. Dr. Carbajal arranged for daily home health visits which makes both the patient and her family very happy. She is hydrating well here, eating soup. Patient received hydration, her tachycardia is downtrending. She is requesting discharge. Family is close and is able to help her tonight. Home health will be with her tomorrow. She is able to eat/drink more, advised she continue with antiemetic. She was given strict return precautions. All of her questions and concerns were addressed, she is in agreement with this plan. HPI General Mode of arrival: ambulatory . Date/Time Provider Initiated Documentation: 08/14/19 10:49 . Limitations to Documentation: no limitations . Information obtained by: patient, family and RN notes reviewed . History of Present Illness 78 year old F presents to the emergency department with the chief complaint of dizziness, described as moderate, with intensity rated at 5 (states that it can become severe when she initially stands, none now, currently supine). Patient started experiencing this week(s) and it has been intermittent. Immobilization improves symptom(s), Movement worsens symptoms . Patient notes loss of appetite, nausea/vomiting (endorses nausea, no vomiting) and weakness (generalized); denies confusion, chest pain, cough, diaphoresis, fever/chills, headaches, malaise, rash, shortness of breath and syncope. Patient did receive the following treatments prior to arrival, none Related Data Home Medications Medication Instructions Recorded Confirmed Daily Multiple 1 ea PO DAILY 06/12/16 06/04/19 cholecalciferol (vitamin D3) 1,000 unit PO DAILY 06/12/16 06/04/19 [Vitamin D3] omeprazole 20 mg PO DAILY tab-cap 06/12/16 06/04/19 acetaminophen [Mapap Extra 500 mg PO Q4H PRN PRN #30 tab 05/15/19 06/04/19 Strength] metoprolol succinate 25 mg 50 mg PO DAILY tab 05/27/19 06/04/19 tablet,extended release 24 hr ibuprofen 200 mg tablet 200 mg PO PRN tab 06/04/19 06/04/19 calcium carbonate 600 mg calcium 600 mg PO DAILY 07/16/19 (1,500 mg) tablet ondansetron HCl 4 mg tablet 4 mg PO Q6H PRN #60 tab 07/16/19 07/16/19 tramadol 50 mg tablet 50 mg PO Q6H PRN 07/16/19 potassium chloride 10 mEq 10 meq PO BID 07/29/19 tablet,extended release(part/cryst) prochlorperazine maleate 10 mg 10 mg PO Q6H PRN 08/11/19 tablet diphenhydramine HCl 25 mg capsule 75 mg PO QHS cap 08/12/19 olanzapine 2.5 mg tablet 2.5 mg PO QHS 08/12/19 cephalexin [Keflex] 500 mg PO BID #10 cap 08/14/19 promethazine 25 mg PO QID PRN #10 tab 08/14/19 Previous Rx's Medication Instructions Recorded acetaminophen [Mapap Extra 500 mg PO Q4H PRN PRN #30 tab 05/15/19 Strength] ondansetron HCl 4 mg tablet 4 mg PO Q6H PRN #60 tab 07/16/19 cephalexin [Keflex] 500 mg PO BID #10 cap 08/14/19 promethazine 25 mg PO QID PRN #10 tab 08/14/19 Allergies Allergy/AdvReac Type Severity Reaction Status Date / Time No Known Allergies Allergy Verified 08/14/19 10:41 General Stated Complaint: Dizzy/Sync ROSALBA: 2 Review of Systems Constitutional Constitutional: Reports as per HPI, Denies chills, Reports fatigue, Denies fever(s), Denies frequent falls, Denies headache(s), Reports poor appetite, Denies snoring and Reports weakness Eyes Eyes: Reports as per HPI, Denies blurry vision, Denies change in vision and Reports photophobia ENT Ears, Nose, Mouth, and Throat: Denies vertigo, Reports dizziness (light headed), Denies headache(s) and Denies neck pain Cardiovascular Cardiovascular: Reports as per HPI, Denies chest pain, Denies syncope, Denies lightheadedness, Denies radiating jaw, neck or arm pain, Denies dyspnea and Denies dyspnea on exertion Respiratory Respiratory: Reports as per HPI, Denies chest congestion, Denies cough, Denies dyspnea, Denies dyspnea on exertion, Denies snoring, Denies stridor and Denies wheezing Gastrointestinal Gastrointestinal: Reports as per HPI, Denies abdominal pain, Denies change in bowel habits, Reports nausea and Denies vomiting Genitourinary Genitourinary: Reports system reviewed and no additional complaints, except as docu (patient denies change in urinary habits) Musculoskeletal Musculoskeletal: Reports as per HPI, Denies back pain, Denies myalgias, Denies muscle cramps, Denies neck pain and Denies numbness Integumentary/Breasts Skin/Breast: Reports as per HPI and Denies rash Neurologic Neurologic: Reports as per HPI, Denies abnormal movements, Denies abnormal speech, Denies behavioral changes, Denies confusion, Denies vertigo, Reports dizziness (light headed), Denies syncope, Denies frequent falls, Denies headache(s), Denies focal weakness, Denies numbness, Denies sensory deficit and Reports weakness Psychiatric Psychiatric: Denies behavioral changes and Denies confusion Endocrine Endocrine: Reports fatigue Allergic/Immunologic Allergic/Immunologic: Denies wheezing [facility] Medical History Basal cell carcinoma, face GERD (gastroesophageal reflux disease) Tachycardia (Acute) Surgical History History of abdominal hysterectomy (Acute) History of bladder suspension procedure (Acute) History of cholecystectomy (Chronic) History of lumbar discectomy (Acute) History of umbilical hernia repair (Acute) Status post biopsy of thyroid gland (Acute) Social History Smoking/Tobacco Use Status: Former Tobacco Use Quit Date: 11/25/99 Tobacco: How many years used: 30 Alcohol Intake: never Drug use: Never Caregiver/Support person: No Number of Children: 3 Communication Needs: None Do you need help understanding health information?: Rarely current occupation: Retired Pets and animals: Yes Sexually active: No Do you think of yourself as: straight/heterosexual Current gender identity: female What is your relationship status?: How often do you talk on the phone with friends or family?: three or more times per week How often do you get together with friends or relatives?: three or more times per week Do you belong to any clubs or organized social groups?: no Panel score (0-1 are the most socially isolated patients): 1 What type of physical activity do you participate in: none Seatbelt use: always Drive intox or ride w/intox emergency medical technician/driver: No Water heater temp set <120 deg: Yes Working smoke detector in home: Yes Fire extinguisher in home: Yes Carbon monox detector in home: Yes Firearms in home: No Do you feel safe at home: Yes Do you feel safe in your relationship?: Yes Exam Const General: cooperative, comfortable, no acute distress, well developed, well groomed and ill appearing chronically Nutritional Appearance: average body habitus and well nourished Orientation: alert, awake and oriented x3 HENAZ Head: normal to inspection, no palpable skull fracture, normocephalic and atraumatic Ears: hearing grossly normal bilaterally, external ears normal and TM's normal bilaterally General nose exam: external nose normal Mouth: oral mucosae normal and moist mucous membranes Throat: posterior oropharynx normal Eyes General: appearance normal, both eyes and all related structures Alignment and Position: alignment normal Periorbital: periorbital findings normal Eyelids: eyelids normal Sclera: sclerae normal Cornea: corneas normal Pupils: PERRL EOM: EOM intact bilaterally Neck Neck: normal visual inspection, full ROM, no lymphadenopathy and no meningeal signs Resp Effort & Inspection: normal respiratory effort, able to speak in complete sentences and no respiratory distress Auscultation: clear to auscultation bilaterally, no rales, no rhonchi and no wheezes Cardio Rate: regular rate Rhythm: regular rhythm Heart Sounds: S1 normal and S2 normal GI Inspection: normal to inspection and non-distended Palpation: soft, no hepatosplenomegaly, not firm, no guarding, not rigid and nontender Percussion: normal to percussion Auscultation: normal bowel sounds Skin General skin exam: no rashes or lesions noted Neuro General: alert, awake and oriented x3 Cranial Nerves: CN's II-XI intact bilaterally Cognition: normal cognition Speech: speech normal Gait: normal gait Motor: muscle tone normal throughout, strength 5/5 throughout, no pronator drift, no movement abnormalities noted and no fasciculations Sensory Exam: no sensory deficits noted Coordination: nonmak-am-dfap test normal and lrub-nd-[id number] test normal Extrem General: normal to inspection, normal capillary refill, no pedal edema and no calf tenderness Psych Appearance: grossly normal and well kempt Mental Status: mental status grossly normal Speech and Movement: speech and movement normal Course Vital Signs Vital signs: Vital Signs Temperature 36.4 C L 08/14/19 10:35 Pulse 114 H 08/14/19 10:35 Respiratory Rate 16 08/14/19 10:35 Blood Pressure 111/74 08/14/19 10:35 Pulse Oximetry 96 08/14/19 10:35 Temperature 36.4 C L 08/14/19 10:35 Temperature Source Skin 08/14/19 10:35 Pulse 114 H 08/14/19 10:35 Respiratory Rate 16 08/14/19 10:35 Respiratory Effort Short of Breath 08/14/19 10:39 Blood Pressure 111/74 08/14/19 10:35 Blood Pressure Position Sitting 08/14/19 10:35 Pulse Oximetry 96 08/14/19 10:35 Oxygen Delivery Method Room Air 08/14/19 10:35 Oxygen Flow Rate 0 08/14/19 10:35
[2019-08-14] MEDS: Ondansetron 4 MG/2 ML VIAL IVP (11:13)
[2019-08-14] MEDS: Normal Saline Flush 10 ML SYR IVP (11:14)
[2019-08-14] MEDS: Normal Saline 1,000 ML 1000 ML IV ×2 (11:16→14:00)
[2019-08-14 11:23] LABS: Absolute Basophil Count 0.01 k/cumm (0.0-0.2); Absolute Eosinophil Count 0.03 k/cumm (0.0-0.7); Absolute Lymphocyte Count 0.88 k/cumm (1.2-3.4); Absolute Neutrophil Count 0.92 k/cumm (1.2-6.7); Basophils % 0.5; Eosinophils % 1.5; Lymphocytes % 43.1; Mean Corp. HGB Concentration 34.4 g/dL (32.0-36.0); Mean Corpuscular Hemoglobin 29.3 pg (27.0-33.0); Mean Corpuscular Volume 85.1 fL (80-95); Mean Platelet Volume 10.3 fL (8.0-11.0); Monocytes % 9.8; Neutrophils % 45.1; RBC 3.76 m/cumm (4.00-5.20); RBC Distribution Width 13.7 % (11.7-14.6); White Blood Cell Count 2.04 k/cumm (4.4-10.8)
[2019-08-14 11:31] LABS: Bilirubin Moderate (Negative); Blood Small (Negative); Clarity Cloudy (Clear); Glucose Negative (Negative); Ketones 80 mg/dL (Negative); Leukocyte Esterase Moderate (Negative); Nitrite Negative (Negative); Urobilinogen 0.2 EU/dL (Up TO 0.2)
[2019-08-14 11:39] LABS: C & S Indicated? Yes; WBC >50 HPF (0-5)
[2019-08-14 11:59] LABS: Platelet Count 145 x1000/uL (130-400)
[2019-08-14 12:00] LABS: Diff Comment Diff Reviewed; RBC Morphology Normal
[2019-08-14 12:10] LABS: ALT 30 U/L (14-59); AST 19 U/L (15-37); Albumin 3.3 g/dL (3.4-5.0); Alkaline Phosphatase 97 U/L (46-116); Anion Gap 14.4 mmol/L (3-11); BUN 24 mg/dL (7-18); Bilirubin, Total 1.1 mg/dL (0.2-1.0); CO2 21.6 mmol/L (21.0-32.0); CREATININE 0.83 mg/dL (0.55-1.02); Calcium 8.3 mg/dL (8.5-10.1); Chloride 100 mmol/L (98-107); Glucose 102 mg/dL (70-100); Magnesium 0.8 mg/dL (1.8-2.4); Potassium 3.4 mmol/L (3.5-5.1); Sodium 136 mmol/L (136-145); TSH 1.35 uIU/mL (0.36-3.74); Total Protein 6.6 g/dL (6.4-8.2)
[2019-08-14 12:13] LABS: Troponin I < 0.05 ng/mL (0.00-0.06)
[2019-08-14] MEDS: Magnesium Oxide 400 MG TAB PO (13:52)
[2019-08-14] MEDS: Cephalexin 500 MG CAP PO (13:53)
[2019-08-14] MEDS: Potassium Chloride 10 MEQ TABCR PO (13:53)
== END 2019-08-14 15:26 | disposition home or self-care (01) ==
PROVIDERS: Emergency Provider Physician Assistant; PCP Nurse Practitioner
DX: E86.0 Dehydration (principal); E83.42 Hypomagnesemia; E87.6 Hypokalemia; N39.0 Urinary tract infection, site not specified; R00.0 Tachycardia, unspecified
CPT/HCPCS: 36415; 80053; 87077; 93005; 96361; 96374; 99284; 81003; 81015; 83735; 84443; 84484; 85025; 87086; 87186; 93010; J2405

== ENCOUNTER 2019-08-17 08:59 | Outpatient (CLI) | payer MEDICARE, BC, SELFPAY ==
[2019-08-17 09:23] LABS: Abs Immature Grans 0.02 k/cumm (0.0-0.09); Absolute Basophil Count 0.02 k/cumm (0.0-0.2); Absolute Eosinophil Count 0.06 k/cumm (0.0-0.7); Absolute Lymphocyte Count 0.76 k/cumm (1.2-3.4); Absolute Monocyte Count 0.27 k/cumm (0.11-0.7); Absolute Neutrophil Count 1.47 k/cumm (1.2-6.7); Basophils % 0.8; Eosinophils % 2.3; HCT 31.2 % (36.0-46.0); HGB 10.4 g/dL (12.0-15.5); Immature Grans % 0.8; Lymphocytes % 29.2; Mean Corp. HGB Concentration 33.3 g/dL (32.0-36.0); Mean Corpuscular Hemoglobin 28.4 pg (27.0-33.0); Mean Corpuscular Volume 85.2 fL (80-95); Mean Platelet Volume 9.6 fL (8.0-11.0); Monocytes % 10.4; Neutrophils % 56.5; Platelet Count 149 x1000/uL (130-400); RBC 3.66 m/cumm (4.00-5.20)
[2019-08-17 09:35] LABS: Diff Comment Agrees w/ Instrument; RBC Morphology Normal
[2019-08-17 09:36] LABS: ALT 35 U/L (14-59); AST 19 U/L (15-37); Albumin 3.1 g/dL (3.4-5.0); Alkaline Phosphatase 95 U/L (46-116); Anion Gap 11.4 mmol/L (3-11); BUN 12 mg/dL (7-18); Bilirubin, Total 0.5 mg/dL (0.2-1.0); CO2 24.6 mmol/L (21.0-32.0); CREATININE 1.09 mg/dL (0.55-1.02); Calcium 7.8 mg/dL (8.5-10.1); Chloride 103 mmol/L (98-107); Estimated GFR 48.55 (mL/min/1.73m2); Glucose 106 mg/dL (70-100); Potassium 3.1 mmol/L (3.5-5.1); Sodium 139 mmol/L (136-145); Total Protein 6.3 g/dL (6.4-8.2)
== END 2019-08-17 09:19 ==
PROVIDERS: PCP Nurse Practitioner; Visit Provider Registered Nurse Oncology
DX: C77.9 Secondary and unspecified malignant neoplasm of lymph node, unspecified (principal); C34.91 Malignant neoplasm of unspecified part of right bronchus or lung; R06.02 Shortness of breath; R06.09 Other forms of dyspnea
CPT/HCPCS: 36415; 80053; 71046; 85025

== ENCOUNTER 2019-08-17 14:27 | Outpatient (CLI) | payer MEDICARE, BC, SELFPAY ==
--- NOTE | 2019-08-17 13:54 | DI.RAD_ITS ---
EXAM: XR CHEST 2V PA LATERAL INDICATION: STAGE IV LUNG CA, RT, C34.91; INCREASING SOB AND CLAROS. COMPARISON: CT CHEST/ABD W from 06/04/2019 XR CHEST 2V PA LATERAL from 08/03/2019 TECHNIQUE: 2D digital imaging was performed. FINDINGS: Heart size is within normal limits. The right hilar prominence is unchanged compared to the prior ex amination there is a stable right pleural effusion. No left pleural effusion is present. There is n o evidence of a pneumothorax. There are degenerative changes seen in the spine. IMPRESSION: Overall there has been no significant change in appearance of the chest x-ray since 08/03/2019.
== END 2019-08-17 14:47 ==
PROVIDERS: PCP Nurse Practitioner; Visit Provider Nurse Practitioner
DX: C34.91 Malignant neoplasm of unspecified part of right bronchus or lung (principal); R06.02 Shortness of breath; R06.09 Other forms of dyspnea
CPT/HCPCS: 71046

== ENCOUNTER → 2019-08-18 13:04 | Outpatient (BNVA) | payer MEDICARE, BC, SELFPAY | PROVIDERS: PCP Nurse Practitioner; Referring Provider Nurse Practitioner; Visit Provider Surgery | DX: J90 Pleural effusion, not elsewhere classified (principal); C34.91 Malignant neoplasm of unspecified part of right bronchus or lung | CPT/HCPCS: 99212; 99213 ==

== ENCOUNTER 2019-08-24 02:32 | Outpatient (CLI) | payer MEDICARE, BC, SELFPAY ==
[2019-08-24 09:15] LABS: Abs Immature Grans 0.04 k/cumm (0.0-0.09); Absolute Basophil Count 0.02 k/cumm (0.0-0.2); Absolute Eosinophil Count 0.12 k/cumm (0.0-0.7); Absolute Lymphocyte Count 0.84 k/cumm (1.2-3.4); Absolute Monocyte Count 0.54 k/cumm (0.11-0.7); Absolute Neutrophil Count 2.53 k/cumm (1.2-6.7); Basophils % 0.5; Eosinophils % 2.9; HCT 33.4 % (36.0-46.0); Lymphocytes % 20.5; Mean Corp. HGB Concentration 32.9 g/dL (32.0-36.0); Mean Corpuscular Hemoglobin 29.3 pg (27.0-33.0); Mean Corpuscular Volume 89.1 fL (80-95); Mean Platelet Volume 9.1 fL (8.0-11.0); Monocytes % 13.2; Neutrophils % 61.9; Platelet Count 212 x1000/uL (130-400); RBC 3.75 m/cumm (4.00-5.20); RBC Distribution Width 17.8 % (11.7-14.6); White Blood Cell Count 4.09 k/cumm (4.4-10.8)
[2019-08-24 09:55] LABS: ALT 26 U/L (14-59); AST 17 U/L (15-37); Albumin 3.1 g/dL (3.4-5.0); Alkaline Phosphatase 94 U/L (46-116); Anion Gap 10.3 mmol/L (3-11); BUN 14 mg/dL (7-18); Bilirubin, Total 0.5 mg/dL (0.2-1.0); CO2 25.7 mmol/L (21.0-32.0); CREATININE 0.93 mg/dL (0.55-1.02); Calcium 8.1 mg/dL (8.5-10.1); Chloride 104 mmol/L (98-107); Estimated GFR 58.31 (mL/min/1.73m2); FREE T4 1.33 ng/dL (0.76-1.46); Glucose 105 mg/dL (70-100); LDH 196 U/L (81-234); Potassium 3.2 mmol/L (3.5-5.1); Sodium 140 mmol/L (136-145); TSH 1.89 uIU/mL (0.36-3.74); Total Protein 6.3 g/dL (6.4-8.2)
== END 2019-08-24 02:52 ==
PROVIDERS: PCP Nurse Practitioner; Visit Provider Registered Nurse Oncology
DX: C77.9 Secondary and unspecified malignant neoplasm of lymph node, unspecified (principal); J91.8 Pleural effusion in other conditions classified elsewhere; Z79.899 Other long term (current) drug therapy; C34.91 Malignant neoplasm of unspecified part of right bronchus or lung
CPT/HCPCS: 36415; 80053; 83615; 84439; 84443; 85025

== ENCOUNTER 2019-08-26 06:03 | Day surgery (SDC) | payer MEDICARE, BC, SELFPAY ==
[2019-08-26 06:22] VITALS: BP 95/59; PULSE 102; RESP 16; TEMP 36.5; O2SAT 93
--- NOTE | 2019-08-26 06:25 | ROE_ITS ---
Date of service: 08/26/19 Time of Service: 07:47 Operative Note Operative Note DATE OF PROCEDURE: 08/26/19 PRE-OP DIAGNOSIS: Lung cancer Right Pleural effusion POST-OP DIAGNOSIS: same PROCEDURE: Right US guided Thoracentesis SURGEON: Caitlin Wynn ANESTHESIA: local (1% Lidocaine 5 cc) ESTIMATED BLOOD LOSS: 0 PATHOLOGY: none sent COMPLICATIONS: None Patient was transported to: same day Patient's condition: stable Indications: Mrs. Waggoner is a pleasant 78 year old diagnosed with lung cancer and is s/p biopsy and pleurodesis. She was seen in the office with some SOB but had been stable for a few months. Risks, benefits and complications were reviewed with her. Questions were entertained and answered to her satisfaction and she wished to proceed. No guarantees were given or implied. Findings: 1200 cc of serous fluid removed Procedure Description: After informed consent was obtained the patient was taken to the procedure room. She was asked to sit at the edge of the bed with her feet on a step stool. The patient was given a table with a pillow to lean against. The back was exposed. US of the Right back was done to find the pocket of fluid. Once the fluid was identified a idris was made on the skin. A time out was done. The patients name, , procedure to be done and side, allergies and antibiotic given were reviewed. Fire risk was assessed. Next the back was prepped and draped in a standard fashion with chlorhexidine. The thoracentesis kit was opened in a sterile fashion. 5 cc of 1% Lidocaine was injected into the dermis, subcutaneous tissue and down between the ribs. A small incision was then made with an 11 blade. The needle and sheath were then slowly introduced until I was able to suction some fluid. At this point the sheath was advanced and the needle was pulled back. The needle was then attached to tubing and to a suction bottle. 1200 cc of light yellow fluid was removed. The sheath was removed and a band aid was applied. The patient was placed back on the gurney and taken back to [facility] in stable condition. The patient tolerated the procedure well and there were no immediate complications. A chest XRay was ordered and is pending at the time of this dictation.
--- NOTE | 2019-08-26 06:38 | W.PM.DSUDISC ---
Discharge Plan Disposition Patient Disposition: HOME Condition: Good Discharge Details Reason For Visit: Thoracentesis Attending Provider: Caitlin Wynn Primary Care Provider: Maddie Rosenthal Home Meds and New Rx's Prescriptions: Continued calcium carbonate 600 mg calcium (1,500 mg) tablet 600 mg PO DAILY RF: 0 tramadol 50 mg tablet 50 mg PO Q6H PRN (Reason: pain) RF: 0 dronabinol 2.5 mg capsule 2.5 mg PO QACDINNER MDD 20 mg Qty: 56 RF: 0 omeprazole 20 MG capsule,delayed release(DR/EC) 20 mg PO DAILY RF: 0 cholecalciferol (vitamin D3) [Vitamin D3] 1,000 UNIT capsule 1,000 unit PO DAILY RF: 0 Daily Multiple 1 EACH tablet 1 ea PO DAILY RF: 0 metoprolol succinate 25 mg tablet extended release 24 hr 50 mg PO DAILY RF: 0 potassium chloride 10 mEq tablet,ER particles/crystals 10 meq PO BID RF: 0 prochlorperazine maleate 10 mg tablet 10 mg PO Q6H PRNRF: 0 olanzapine 2.5 mg tablet 2.5 mg PO QHS RF: 0 cephalexin [Keflex] 500 mg capsule 500 mg PO BID Qty: 8 RF: 0 Discharge Instructions Instructions: Thoracentesis (DC) Additional Instructions: Please call the office or return to the ER if you develop increasing Shortness of breath or chest pain Activity:: Activity as Tolerated Diet:: As Tolerated Discharge Orders Discharge Orders: Discharge Order (Routine); Ordered 08/26/19 Ordered By: Caitlin Wynn DS: Diagnosis Discharge Diagnosis (1) Pleural effusion, right: Status: Acute
--- NOTE | 2019-08-26 07:46 | DI.RAD_ITS ---
EXAM: XR PORTABLE CHEST AP INDICATION: post thoracentesis. COMPARISON: XR CHEST 2V PA LATERAL from 08/17/2019 TECHNIQUE: 2D digital imaging was performed. FINDINGS: There has been interval decrease in size of the right pleural effusion. There is a persistent small right pleural effusion. No pneumothorax is present. The heart size and pulmonary vasculature are wi thin normal limits. The left lung is clear and well expanded. No left pleural effusion or pneumotho rax is identified. IMPRESSION: Interval decrease in size of right pleural effusion status post thoracentesis. Persistent small righ t pleural effusion. No pneumothorax.
== END 2019-08-26 08:20 | disposition home or self-care (01) ==
PROVIDERS: PCP Nurse Practitioner; Visit Provider Surgery
PROC: (CPT 32554; principal; 2019-08-26 07:30)
DX: R06.02 Shortness of breath (principal); C34.91 Malignant neoplasm of unspecified part of right bronchus or lung; J91.8 Pleural effusion in other conditions classified elsewhere; Z79.899 Other long term (current) drug therapy
CPT/HCPCS: 32555; 71045

== ENCOUNTER 2019-08-28 10:11 | Day surgery (SDC) | payer MEDICARE, BC, SELFPAY ==
[2019-08-28 10:46] VITALS: BP 106/77; PULSE 111; RESP 20; TEMP 36.4; O2SAT 97
[2019-08-28] MEDS: Lactated Ringers 1,000 ML 80 ML IV (11:35)
--- NOTE | 2019-08-28 12:36 | DI.RAD_ITS ---
EXAM: RF LINE PLACEMENT OR CLINICAL HISTORY: LUNG CANCER. TECHNIQUE: 2D and realtime digital imaging was performed. C-arm fluoroscopy utilized by Dr. Michael gilbert placement of right Port-A-Cath. Fluoro Time: 21.5 sec COMPARISON: No exams were available for comparison FINDINGS: Hard copy shows Port-A-Cath placement with tip of the catheter in the superior vena cava just above t he right atrium.
--- NOTE | 2019-08-28 13:06 | PDOC.DSDIS_ITS ---
Discharge Plan Disposition Patient Disposition: HOME Condition: Good Discharge Details Reason For Visit: [facility] Attending Provider: Radha Rodriguez Primary Care Provider: Maddie Rosenthal Home Meds and New Rx's Prescriptions: Continued calcium carbonate 600 mg calcium (1,500 mg) tablet 600 mg PO DAILY RF: 0 tramadol 50 mg tablet 50 mg PO Q6H PRN (Reason: pain) RF: 0 dronabinol 2.5 mg capsule 2.5 mg PO QACDINNER MDD 20 mg Qty: 56 RF: 0 omeprazole 20 MG capsule,delayed release(DR/EC) 20 mg PO DAILY RF: 0 cholecalciferol (vitamin D3) [Vitamin D3] 1,000 UNIT capsule 1,000 unit PO DAILY RF: 0 Daily Multiple 1 EACH tablet 1 ea PO DAILY RF: 0 metoprolol succinate 25 mg tablet extended release 24 hr 50 mg PO DAILY RF: 0 potassium chloride 10 mEq tablet,ER particles/crystals 10 meq PO BID RF: 0 prochlorperazine maleate 10 mg tablet 10 mg PO Q6H PRNRF: 0 olanzapine 2.5 mg tablet 2.5 mg PO QHS RF: 0 cephalexin [Keflex] 500 mg capsule 500 mg PO BID Qty: 8 RF: 0 dexamethasone 2 mg tablet 2 mg PO BID RF: 0 oxycodone 5 mg capsule 5 mg PO Q4H PRNRF: 0 sennosides [Senna Lax] 8.6 mg tablet 17.2 mg PO QHS RF: 0 Discharge Instructions Additional Instructions: The top bandage can be removed Saturday in oncology. The steri strips will usually stick for about a week. When the edges start to curl up, they can be removed. It is okay to shower tomorrow, the water can run over the steri strips Do not swim or soak in a tub for two weeks Call for any concerns including fever, increased pain, new shortness of breath, incision redness or drainage. Do not lift more than 15 pounds for two weeks. Walking and stairs are fine. Do not drive if on narcotic pain meds or if limited by pain. May use Tylenol alternating with ibuprofen for pain control. Ice is also an option. The maximum dose for Tylenol is 4000 mg/day. May use ibuprofen 800 mg every 8 hours as needed. If concerned about constipation, you may use a stool softener or milk of magnesia. Activity:: Activity as Tolerated Diet:: As Tolerated Discharge Orders Discharge Orders: Discharge Order (Routine); Ordered 08/28/19 Ordered By: Radha Rodriguez DS: Diagnosis Discharge Diagnosis (1) Cancer of bronchus of right upper lobe: Status: Acute
[2019-08-28] MEDS: ceFAZolin 2,000 MG in Normal Saline 100 ML 200 MG IVPB (13:16)
[2019-08-28] MEDS: Normal Saline 50 ML (13:32)
[2019-08-28] MEDS: Heparin 500 UNITS/5 ML SYRINGE (13:56)
[2019-08-28 14:35] VITALS: BP 126/70; PULSE 103; RESP 17; TEMP 36.7; O2SAT 96
--- NOTE | 2019-08-31 10:25 | ROE_ITS ---
DATE OF PROCEDURE: August 28, 2019 PREOPERATIVE DIAGNOSIS: Metastatic lung cancer. POSTOPERATIVE DIAGNOSIS: Metastatic lung cancer. PROCEDURE: Right subclavian Mediport placement. SURGEON: Radha Rodriguez M.D. ANESTHESIA: Local and sedation. INDICATIONS: This is a 78-year-old woman who is currently undergoing chemotherapy for metastatic rig ht lung cancer. She reports difficulty with IV access during her recent chemotherapy and presents fo r port placement. PROCEDURE: She was placed supine on the operating table and her arms were tucked bilaterally. Her b ilateral chest and neck were prepped and draped sterilely. Sedation was administered. The skin of t he upper right chest was infiltrated with local anesthetic. The right subclavian vein was accessed a fter 2 or 3 attempts with the 18 gauge needle. The wire threaded easily and was shown to be in the s uperior vena cava using fluoroscopy. The wire was clipped to the drape. An incision was made extend ing anteromedially and the subcutaneous tissue divided with cautery to create a pocket above the pect oralis muscle. The catheter was attached to the port and then trimmed to the proper length using flu oroscopy. The peel-away and dilator were passed over the wire and then the wire and dilator removed. The port catheter was passed down the peel-away, which was then removed. The tip of the catheter w as seen to be in the superior vena cava using fluoroscopy. The port was sutured to the chest wall wi th interrupted #2-0 Prolene sutures and the skin closed with interrupted #3-0 Vicryl sutures and the skin closed with a running #4-0 Monocryl subcuticular stitch. The port was accessed with a Nuno jarene dle and aspirated nicely. It was then flushed with 5 cc's of heparinized saline. The wound was dres sed with Steri-Strips and a 2x2 and Tegaderm. She tolerated the procedure well and was stable to rec overy.
== END 2019-08-28 15:50 | disposition home or self-care (01) ==
PROVIDERS: PCP Nurse Practitioner; Visit Provider Surgery
PROC: (CPT 36561; principal; 2019-08-28 12:45)
DX: C34.11 Malignant neoplasm of upper lobe, right bronchus or lung (principal); Z45.2 Encounter for adjustment and management of vascular access device; K21.9 Gastro-esophageal reflux disease without esophagitis
CPT/HCPCS: 36561; 77001; C1788; J0690

== ENCOUNTER 2019-08-31 02:38 | Outpatient (CLI) | payer MEDICARE, BC, SELFPAY ==
[2019-08-31 09:33] LABS: Abs Immature Grans 0.03 k/cumm (0.0-0.09); Absolute Basophil Count 0.03 k/cumm (0.0-0.2); Absolute Eosinophil Count 0.06 k/cumm (0.0-0.7); Absolute Lymphocyte Count 0.65 k/cumm (1.2-3.4); Absolute Neutrophil Count 2.14 k/cumm (1.2-6.7); Eosinophils % 1.9; HCT 30.7 % (36.0-46.0); HGB 10.3 g/dL (12.0-15.5); Lymphocytes % 20.9; Mean Corp. HGB Concentration 33.6 g/dL (32.0-36.0); Mean Corpuscular Hemoglobin 29.2 pg (27.0-33.0); Mean Platelet Volume 9.6 fL (8.0-11.0); Monocytes % 6.4; Neutrophils % 68.8; Platelet Count 160 x1000/uL (130-400); RBC 3.53 m/cumm (4.00-5.20); RBC Distribution Width 16.5 % (11.7-14.6); White Blood Cell Count 3.11 k/cumm (4.4-10.8)
[2019-08-31 09:55] LABS: ALT 78 U/L (14-59); AST 44 U/L (15-37); Albumin 3.2 g/dL (3.4-5.0); Alkaline Phosphatase 104 U/L (46-116); BUN 20 mg/dL (7-18); Bilirubin, Total 1.1 mg/dL (0.2-1.0); CREATININE 0.71 mg/dL (0.55-1.02); Calcium 8.4 mg/dL (8.5-10.1); Chloride 98 mmol/L (98-107); Glucose 104 mg/dL (70-100); LDH 317 U/L (81-234); Sodium 139 mmol/L (136-145); TSH 0.23 uIU/mL (0.36-3.74); Total Protein 6.5 g/dL (6.4-8.2)
[2019-08-31 09:56] LABS: FREE T4 1.82 ng/dL (0.76-1.46)
[2019-08-31 10:03] LABS: Potassium 2.8 mmol/L (3.5-5.1)
== END 2019-08-31 02:58 ==
PROVIDERS: Registered Nurse Oncology; PCP Nurse Practitioner; Visit Provider Student in an Organized Health Care Education/Training Program
DX: C77.9 Secondary and unspecified malignant neoplasm of lymph node, unspecified (principal); J91.8 Pleural effusion in other conditions classified elsewhere; Z79.899 Other long term (current) drug therapy
CPT/HCPCS: 36415; 80053; 83615; 84439; 84443; 85025

== ENCOUNTER 2019-09-14 02:08 | Outpatient (CLI) | payer MEDICARE, BC, SELFPAY ==
[2019-09-14 09:18] LABS: Abs Immature Grans 0.03 k/cumm (0.0-0.09); Absolute Basophil Count 0.03 k/cumm (0.0-0.2); Absolute Eosinophil Count 0.04 k/cumm (0.0-0.7); Absolute Lymphocyte Count 1.11 k/cumm (1.2-3.4); Absolute Monocyte Count 0.53 k/cumm (0.11-0.7); Absolute Neutrophil Count 1.85 k/cumm (1.2-6.7); Basophils % 0.8; Eosinophils % 1.1; HCT 29.1 % (36.0-46.0); HGB 9.4 g/dL (12.0-15.5); Immature Grans % 0.8; Lymphocytes % 30.9; Mean Corp. HGB Concentration 32.3 g/dL (32.0-36.0); Mean Corpuscular Hemoglobin 30.3 pg (27.0-33.0); Mean Corpuscular Volume 93.9 fL (80-95); Mean Platelet Volume 9.5 fL (8.0-11.0); Monocytes % 14.8; Neutrophils % 51.6; Platelet Count 228 x1000/uL (130-400); RBC Distribution Width 22.1 % (11.7-14.6); White Blood Cell Count 3.59 k/cumm (4.4-10.8)
[2019-09-14 09:43] LABS: Anisocytosis 3+; Diff Comment RBC Morph Reviewed; Polychromasia Present
[2019-09-14 09:49] LABS: ALT 26 U/L (14-59); AST 20 U/L (15-37); Albumin 2.8 g/dL (3.4-5.0); Alkaline Phosphatase 103 U/L (46-116); Anion Gap 11.9 mmol/L (3-11); BUN 13 mg/dL (7-18); Bilirubin, Total 0.7 mg/dL (0.2-1.0); CO2 26.1 mmol/L (21.0-32.0); CREATININE 0.72 mg/dL (0.55-1.02); Calcium 7.7 mg/dL (8.5-10.1); Chloride 105 mmol/L (98-107); FREE T4 1.53 ng/dL (0.76-1.46); Glucose 102 mg/dL (70-100); LDH 260 U/L (81-234); Sodium 143 mmol/L (136-145); TSH 0.43 uIU/mL (0.36-3.74)
== END 2019-09-14 02:28 ==
PROVIDERS: PCP Nurse Practitioner; Visit Provider Registered Nurse Oncology
DX: C77.9 Secondary and unspecified malignant neoplasm of lymph node, unspecified (principal); J91.8 Pleural effusion in other conditions classified elsewhere; C34.91 Malignant neoplasm of unspecified part of right bronchus or lung; Z79.899 Other long term (current) drug therapy
CPT/HCPCS: 36415; 80053; 83615; 84439; 84443; 85025

== ENCOUNTER 2019-09-21 02:06 | Outpatient (CLI) | payer MEDICARE, BC, SELFPAY ==
[2019-09-21 09:20] LABS: Abs Immature Grans 0.02 k/cumm (0.0-0.09); Absolute Basophil Count 0.02 k/cumm (0.0-0.2); Absolute Eosinophil Count 0.05 k/cumm (0.0-0.7); Absolute Lymphocyte Count 0.96 k/cumm (1.2-3.4); Absolute Monocyte Count 0.61 k/cumm (0.11-0.7); Absolute Neutrophil Count 3.16 k/cumm (1.2-6.7); Basophils % 0.4; HCT 31.7 % (36.0-46.0); Immature Grans % 0.4; Lymphocytes % 19.9; Mean Corp. HGB Concentration 31.5 g/dL (32.0-36.0); Mean Corpuscular Hemoglobin 30.5 pg (27.0-33.0); Mean Corpuscular Volume 96.6 fL (80-95); Mean Platelet Volume 9.4 fL (8.0-11.0); Monocytes % 12.7; Neutrophils % 65.6; Platelet Count 271 x1000/uL (130-400); RBC 3.28 m/cumm (4.00-5.20); RBC Distribution Width 21.5 % (11.7-14.6); White Blood Cell Count 4.82 k/cumm (4.4-10.8)
[2019-09-21 09:43] LABS: ALT 30 U/L (14-59); AST 23 U/L (15-37); Albumin 2.7 g/dL (3.4-5.0); Alkaline Phosphatase 113 U/L (46-116); BUN 16 mg/dL (7-18); Bilirubin, Total 0.6 mg/dL (0.2-1.0); CREATININE 0.83 mg/dL (0.55-1.02); Calcium 8.2 mg/dL (8.5-10.1); Chloride 104 mmol/L (98-107); FREE T4 1.54 ng/dL (0.76-1.46); Glucose 116 mg/dL (70-100); LDH 241 U/L (81-234); Potassium 3.2 mmol/L (3.5-5.1); Sodium 140 mmol/L (136-145); TSH 0.37 uIU/mL (0.36-3.74); Total Protein 6.2 g/dL (6.4-8.2)
== END 2019-09-21 02:26 ==
PROVIDERS: PCP Nurse Practitioner; Visit Provider Registered Nurse Oncology
DX: C77.9 Secondary and unspecified malignant neoplasm of lymph node, unspecified (principal); J91.8 Pleural effusion in other conditions classified elsewhere; C34.91 Malignant neoplasm of unspecified part of right bronchus or lung; Z79.899 Other long term (current) drug therapy
CPT/HCPCS: 36415; 80053; 83615; 84439; 84443; 85025

== ENCOUNTER 2019-09-21 09:21 | Emergency (ER) | payer MEDICARE, BC, SELFPAY ==
[2019-09-21] VITALS (30 sets, daily range): BP systolic 112–138; BP diastolic 68–78; PULSE 101–149; RESP 16–30; TEMP 36.5–37; O2SAT 93–97
--- NOTE | 2019-09-21 09:26 | W.ED.GENAD ---
Discharge Plan Disposition Patient Disposition: HOME Discharge Details Chief Complaint: SOB Clinical Impression: Pleural effusion, malignant, Hypokalemia, Hypomagnesemia Primary Care Provider: Maddie Rosenthal ED Provider: David Myers Home Meds and New Rx's Prescriptions: No Action calcium carbonate 600 mg calcium (1,500 mg) tablet 600 mg PO DAILY RF: 0 tramadol 50 mg tablet 50 mg PO Q6H PRN (Reason: pain) RF: 0 dronabinol 2.5 mg capsule 2.5 mg PO QACDINNER MDD 20 mg Qty: 56 RF: 0 omeprazole 20 MG capsule,delayed release(DR/EC) 20 mg PO DAILY RF: 0 cholecalciferol (vitamin D3) [Vitamin D3] 1,000 UNIT capsule 1,000 unit PO DAILY RF: 0 Daily Multiple 1 EACH tablet 1 ea PO DAILY RF: 0 potassium chloride 10 mEq tablet,ER particles/crystals 10 meq PO BID RF: 0 prochlorperazine maleate 10 mg tablet 10 mg PO Q6H PRNRF: 0 olanzapine 2.5 mg tablet 2.5 mg PO QHS RF: 0 cephalexin [Keflex] 500 mg capsule 500 mg PO BID Qty: 8 RF: 0 dexamethasone 2 mg tablet 2 mg PO BID RF: 0 oxycodone 5 mg capsule 5 mg PO Q4H PRNRF: 0 sennosides [Senna Lax] 8.6 mg tablet 17.2 mg PO QHS RF: 0 metoprolol succinate 25 mg tablet extended release 24 hr 50 mg PO DAILY Qty: 90 RF: 1 Discharge Instructions Instructions: Hypokalemia (ED), Hypomagnesemia (ED) Additional Instructions: Your right-sided pleural effusion was drained by Dr. Mitchell in the emergency department. We replenished your potassium and magnesium. You are not to get your chemotherapy today. He will follow-up with hematology oncology on the fifth as scheduled. Return to the emerge department should your symptoms worsen Referrals: Maddie Rosenthal, TJ [Primary Care Provider] - 3 days Medical Decision Making 10:00 This is a nontoxic-appearing chronically ill 79-year-old female with a significant history for recurrent pleural effusion secondary to right stage IV lung CA. Vitals demonstrate a baseline tachycardia with questionable MAT on EKG. Her sats are well preserved in the mid to upper 90s on room air. She is not in any surgical respiratory distress. Her jikkg-bf-cgny ultrasound demonstrates a large right-sided pleural effusion with a positive jellyfish sign. Labs pending. Will contact general surgery to discuss thoracentesis today. 11:20 Patient was notable right sided pleural effusion on chest x-ray. Remainder of her labs are unremarkable with baseline hypokalemia with 3.2. She has negative cardiac enzymes. Platelets equal to 70 and her INR is 1.2. She is not on any anticoagulation. Discussed case with Dr. Kern about therapeutic thoracentesis. She will evaluate the patient in the emergency department. Patient made aware. Patient seen by Dr. Mitchell who performed therapeutic thoracentesis in the emergency department. 1-1/2 L of pleural fluid removed. Patient tolerated the procedure well. Magnesium and potassium supplementation given for low values here. She has had no return in her symptoms with a improvement in her pulse rate and respiratory rate status post thoracentesis. Hematology oncology recommends foregoing chemotherapy today. They will follow-up with her on the fifth as scheduled. Discussed return precautions with the patient. She is feeling well enough for discharge at this time. HPI General Date/Time Provider Initiated Documentation: 09/21/19 09:27. HPI Narrative: Patient is a 79-year-old female with a significant history for stage IV right lung cancer status post pleurocentesis secondary to recurrent pleural effusions, DNR/DNI, chronic hypokalemia who presents to the emergency department with worsening shortness of breath, nausea and dizziness. Patient states that she had her blood drawn from outpatient lab today when she suddenly developed lightheadedness/room spinning sensation. The symptoms have subsided however she has noted substantial worsening in her shortness of breath with ambulation. She feels fine sitting on the stretcher however when she ambulates she gets severely short of breath. She states that her symptoms of her breathing are similar to that of her previous pleural effusion. She denies any chest pain. No fevers. She is currently on rounds of chemotherapy and is managed here as well as [facility]. She had a ultrasound-guided thoracentesis performed by Dr. Wynn on 08/26/2019. Related Data Home Medications Medication Instructions Recorded Confirmed Daily Multiple 1 ea PO DAILY 06/12/16 09/21/19 cholecalciferol (vitamin D3) 1,000 unit PO DAILY 06/12/16 09/21/19 [Vitamin D3] omeprazole 20 mg PO DAILY tab-cap 06/12/16 09/21/19 calcium carbonate 600 mg calcium 600 mg PO DAILY 07/16/19 09/21/19 (1,500 mg) tablet tramadol 50 mg tablet 50 mg PO Q6H PRN 07/16/19 09/21/19 potassium chloride 10 mEq 10 meq PO BID 07/29/19 09/21/19 tablet,extended release(part/cryst) prochlorperazine maleate 10 mg 10 mg PO Q6H PRN 08/11/19 09/21/19 tablet olanzapine 2.5 mg tablet 2.5 mg PO QHS 08/12/19 09/21/19 dronabinol 2.5 mg capsule 2.5 mg PO QACDINNER #56 cap [facility] 20 08/18/19 09/21/19 mg cephalexin 500 mg capsule 500 mg PO BID #8 tab-cap 08/21/19 09/21/19 dexamethasone 2 mg tablet 2 mg PO BID 08/26/19 09/21/19 oxycodone 5 mg capsule 5 mg PO Q4H PRN 08/26/19 09/21/19 sennosides 8.6 mg tablet 17.2 mg PO QHS tab 08/26/19 09/21/19 metoprolol succinate 25 mg 50 mg PO DAILY #90 tab 09/15/19 09/21/19 tablet,extended release 24 hr Previous Rx's Medication Instructions Recorded dronabinol 2.5 mg capsule 2.5 mg PO QACDINNER #56 cap [facility] 20 08/18/19 mg cephalexin 500 mg capsule 500 mg PO BID #8 tab-cap 08/21/19 metoprolol succinate 25 mg 50 mg PO DAILY #90 tab 09/15/19 tablet,extended release 24 hr Allergies Allergy/AdvReac Type Severity Reaction Status Date / Time No Known Allergies Allergy Verified 09/21/19 09:29 General ROSALBA: 2 Review of Systems Constitutional Constitutional: Reports fatigue, Denies fever(s), Denies night sweats, Reports poor appetite and Reports weakness Eyes Eyes: Denies blind spots and Denies loss of vision ENT Ears, Nose, Mouth, and Throat: Reports vertigo, Reports dizziness and Denies tinnitus Cardiovascular Cardiovascular: Denies chest pain, Denies chest pain at rest, Denies chest pain with activity, Denies diaphoresis, Denies syncope, Denies rapid heart rate, Denies edema, Reports lightheadedness, Reports dyspnea, Reports dyspnea on exertion and Denies orthopnea Respiratory Respiratory: Reports dyspnea and Reports dyspnea on exertion Gastrointestinal Gastrointestinal: Denies diarrhea, Reports nausea and Reports vomiting Musculoskeletal Musculoskeletal: Denies back pain and Denies myalgias Neurologic Neurologic: Reports vertigo, Reports dizziness, Denies syncope, Denies loss of vision and Reports weakness Endocrine Endocrine: Reports fatigue [facility] Medical History Basal cell carcinoma, face Cancer of bronchus of right upper lobe (Acute) Metastatic , 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 Dehydration (Acute) DNI (do not intubate) (Acute) DNR (do not resuscitate) (Acute) GERD (gastroesophageal reflux disease) Goals of care, counseling/discussion (Acute) Hypokalemia (Acute) Palliative care patient (Acute) POLST (Physician Orders for Life-Sustaining Treatment) (Acute) Tachycardia (Acute) Unintentional weight loss (Acute) Surgical History History of abdominal hysterectomy (Acute) History of appendectomy (Chronic) History of bladder suspension procedure (Acute) History of cholecystectomy (Chronic) History of lumbar discectomy (Acute) History of umbilical hernia repair (Acute) Port-A-Cath in place (Acute ~08/28/19) Status post biopsy of thyroid gland (Acute) Family History Father Lymphoma Son No problems noted. Son No problems noted. Daughter No problems noted. Daughter Alcohol abuse Social History Smoking/Tobacco Use Status: Former Tobacco Use Quit Date: 11/25/99 Tobacco: How many years used: 30 Alcohol Intake: never Drug use: Never Details: synthetic antiemetic RX Caregiver/Support person: No Household members: none Housing: house Number of Children: 3 Communication Needs: Hard of Hearing Education Level: high school Do you need help understanding health information?: Rarely current occupation: Retired; worked for [employer], worked for [employer] Pets and animals: Yes Pets and animals: cat(s) and dog(s) Sexually active: No Do you think of yourself as: straight/heterosexual Current gender identity: female What is your relationship status?: How often do you talk on the phone with friends or family?: three or more times per week How often do you get together with friends or relatives?: three or more times per week Do you belong to any clubs or organized social groups?: no Panel score (0-1 are the most socially isolated patients): 1 What type of physical activity do you participate in: none and sedentary lifestyle Special eliane needs: No Seatbelt use: always Drive intox or ride w/intox rear load truck driver: No Water heater temp set <120 deg: Yes Working smoke detector in home: Yes Fire extinguisher in home: Yes Carbon monox detector in home: Yes Firearms in home: No Do you feel safe at home: Yes Do you feel safe in your relationship?: Yes Additional Social history: Lives alone. Daughter Carmelina and son-in-law Ed very involved in her life. Ed goes to most [facility] apts with Veena. Veena's from cancer after 1 day on hospice. She reports My cancer is incurable, but it is treatable. Usually volunteers at [facility]. Not strong enough. Exam Const General: cooperative, comfortable and no acute distress Orientation: alert, awake and oriented x3 HENMT Head: normal to inspection Ears: hearing grossly normal bilaterally, external ears normal and TM's normal bilaterally General nose exam: external nose normal Mouth: oral mucosae normal Eyes General: appearance normal, both eyes and all related structures Pupils: PERRL EOM: EOM intact bilaterally Neck Neck: normal visual inspection and full ROM Chest Chest: normal inspection of the chest Resp Effort & Inspection: normal respiratory effort and able to speak in complete sentences Auscultation: diminished lung sounds on the right Cardio Jugular venous pressure: no JVD Rate: tachycardic Rhythm: abnormal rhythm Pulses: normal peripheral pulses GI Inspection: normal to inspection Skin General skin exam: no rashes or lesions noted Extrem General: normal to inspection, full ROM and normal capillary refill
--- NOTE | 2019-09-21 09:45 | DI.RAD_ITS ---
EXAM: XR CHEST 2V PA LATERAL INDICATION: SOB, large left pleural effusion, h/o CA. COMPARISON: XR PORTABLE CHEST AP from 08/26/2019 RF LINE PLACEMENT OR from 08/28/2019 TECHNIQUE: 2D digital imaging was performed. FINDINGS: Heart size and pulmonary vasculature are within normal limits. The tip of the Lelwyv-A-Anlz catheter is in good position at the junction of the superior vena cava and right atrium. The left lung is cl ear. There has been interval increase in size of the right pleural effusion with development of a ri ght basilar infiltrate. The infiltrate may represent atelectasis or pneumonia. No pneumothorax is i dentified. There is atherosclerosis of the thoracic aorta. Age-appropriate degenerative changes are seen in the spine. IMPRESSION: 1. Interval increase in size of right pleural effusion with development of a right basilar infiltrat e which may represent atelectasis or pneumonia. 2. Stable appearance of the Mvngbu-B-Flxj catheter.
[2019-09-21 10:07] LABS: Magnesium 0.8 mg/dL (1.8-2.4)
[2019-09-21 10:13] LABS: Troponin I < 0.05 ng/mL (0.00-0.06)
[2019-09-21 10:40] LABS: INR 1.2 (0.9-1.1); PTT Activated 27.2 sec (21.0-31.4); Prothrombin Time 12.1 sec (9.3-11.0)
[2019-09-21] MEDS: LORazepam 2 MG/ML VIAL 0.5 MG IVP (11:30)
[2019-09-21] MEDS: MAGNESIUM SULFATE 4 GM/100 ML BAG IVPB (11:32)
[2019-09-21] MEDS: Normal Saline-STERILE FIELD 0.9% 10 ML SYR (11:33)
[2019-09-21] MEDS: POTASSIUM CHLORIDE/0.9% NACL 1,000 ML 30 MEQ IV (11:55)
--- NOTE | 2019-09-21 12:08 | ROE_ITS ---
Date of service: 09/21/19 Time of Service: 12:08 Operative Note Operative Note DATE OF PROCEDURE: 09/21/19 PRE-OP DIAGNOSIS: lung cancer/symptomatic pleural effusion/SOB-right POST-OP DIAGNOSIS: same PROCEDURE: right thorocentisis removed 1500cc straw colored fluid. repeat CXR shows resolution and no PTX receiving Mg and K today has anti emetics at home [facility] was contacted and said hold on chemo until she F/U w/ [facility] onc as [place] [facility] [place]. SURGEON: Elsy Mitchell ANESTHESIA: local and other ESTIMATED BLOOD LOSS: 0 PATHOLOGY: none sent COMPLICATIONS: None Patient was transported to: other Patient's condition: stable Procedure Description: dictation
[2019-09-21] MEDS: Lidocaine 1% Multi-Dose 50 ML VIAL (12:09)
--- NOTE | 2019-09-21 12:21 | DI.RAD_ITS ---
EXAM: XR PORTABLE CHEST AP INDICATION: s/p thoracentesis COMPARISON: XR CHEST 2V PA LATERAL from 09/21/2019 TECHNIQUE: 2D digital imaging was performed. FINDINGS: The heart size and pulmonary vasculature are within normal limits. The left lung remains clear. No effusion or pneumothorax is identified. Since prior examination earlier in the day, the patient has undergone a right thoracentesis. There is now a small residual right pleural effusion present. No p neumothorax is present. The indwelling central venous catheter is stable. IMPRESSION: Status post right thoracentesis. No pneumothorax. Small residual right pleural effusion.
--- NOTE | 2019-09-21 13:34 | ROE_ITS ---
DATE OF PROCEDURE: September 21, 2019 PREOPERATIVE DIAGNOSIS: Lung cancer with symptomatic right pleural effusion and shortness of breath. POSTOPERATIVE DIAGNOSIS: Same. PROCEDURE: Right thoracentesis. SURGEON: Elsy Mitchell D.O. ANESTHESIA: IV sedation and local. ESTIMATED BLOOD LOSS: < 1cc CONDITION: The patient tolerated the procedure well without complication. INDICATIONS: Ms. Waggoner is a 79-year-old female who presented to the ER today. She is actively undergoing chemo for lung cancer and was complaining of shortness of breath/chest pain that was discovered to be non-cardiac and she has a large, recurrent pleural effusion. Her last tap was on August 26. She requires repeat tap today for symptom relief. Informed consent was obtained explaining risks and benefits of the procedure, including but not limited to bleeding, infection, pneumonia and pneumothorax. The patient agrees. She is not feeling well today; she's had extreme problems with nausea and extreme all- over body aches from the chemo. She is supposed to have chemo today. PROCEDURE: The right posterior chest ultrasound is used to localize the fluid pocket. The posterior lateral chest is prepped and draped in the usual sterile fashion using the ChloraPrep scrub solution. A time-out is performed and we are in agreement that this is the right lung and the correct patient. Going over the top of the ninth rib, this is infiltrated with 20 cc's of 1% Lidocaine plain. A small knick is made with the #11 blade. The catheter over the needle system is inserted into the chest with return of straw-colored fluid. This is attached to a vacutainer bottle. Ultimately we removed about 1400 cc's of fluid. Compression dressing is applied. Portable chest x-ray shows resolution of the fluid and no pneumothorax. The patient tolerated the procedure well and remained in the ER throughout the entirety of the procedure. Infusion did contact [facility] and they do not want the patient to receive her chemo today and she should follow-up down at [facility] on September 29 with her oncology team, as previously scheduled. Thank you for allowing me to participate in the care of this patient. cc: Phil Garcia M.D.
[2019-09-21] MEDS: Heparin 500 UNITS/5 ML SYRINGE (15:10)
--- NOTE | 2019-09-21 17:13 | W.SURGCON ---
Date of service: 09/21/19 Time of Service: 17:13 Assessment and Plan Assessment and plan (1) Hypokalemia: Status: Acute (2) Dehydration: Status: Acute (3) Low serum magnesium level: Status: Acute (4) Pleural effusion, right: Status: Acute Assessment and plan: cxr reviewed pt needs thorocentisis for symptom relief reviewed risk nad befits - bleeding/infection/PTX/comp of anesthesia/recurrence pt agrees US used to idris position History of Present Illness History of Present Illness Chief Complaint: pt presented to ED c/o SOB and CP Narrative: She was recently Dg w/ lung CA in R lung and is undergoing Chemo. She had R chest tapped on 08/26 nad a R ported placed 2 wks ago. She is c/o of SOB and all-over pain. She also c/o severe nausea. She has not been eating and has notable muscle wasting. Her CXR today shows lg pleural eff that has re-accumulated. She said a she fell a few days ago and ever since than she has been SOB. She is not on any blood thinners. I do't think this is a hemothorax. she does need a thorocentisis for symptom releif. She already has a cancer Dg. 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 Dehydration (Acute) DNI (do not intubate) (Acute) DNR (do not resuscitate) (Acute) GERD (gastroesophageal reflux disease) Goals of care, counseling/discussion (Acute) Hypokalemia (Acute) Palliative care patient (Acute) POLST (Physician Orders for Life-Sustaining Treatment) (Acute) Tachycardia (Acute) Unintentional weight loss (Acute) Surgical History History of abdominal hysterectomy (Acute) History of appendectomy (Chronic) History of bladder suspension procedure (Acute) History of cholecystectomy (Chronic) History of lumbar discectomy (Acute) History of umbilical hernia repair (Acute) Port-A-Cath in place (Acute ~08/28/19) Status post biopsy of thyroid gland (Acute) Family History Father Lymphoma Son No problems noted. Son No problems noted. Daughter No problems noted. Daughter Alcohol abuse Social History Smoking/Tobacco Use Status: Former Tobacco Use Quit Date: 11/25/99 Tobacco: How many years used: 30 Alcohol Intake: never Drug use: Never Details: synthetic antiemetic RX Caregiver/Support person: No Household members: none Housing: house Number of Children: 3 Communication Needs: Hard of Hearing Education Level: high school Do you need help understanding health information?: Rarely current occupation: Retired; worked for [employer], worked for [employer] shop Pets and animals: Yes Pets and animals: cat(s) and dog(s) Sexually active: No Do you think of yourself as: straight/heterosexual Current gender identity: female What is your relationship status?: How often do you talk on the phone with friends or family?: three or more times per week How often do you get together with friends or relatives?: three or more times per week Do you belong to any clubs or organized social groups?: no Panel score (0-1 are the most socially isolated patients): 1 What type of physical activity do you participate in: none and sedentary lifestyle Special eliane needs: No Seatbelt use: always Drive intox or ride w/intox dedicated local truck driver: No Water heater temp set <120 deg: Yes Working smoke detector in home: Yes Fire extinguisher in home: Yes Carbon monox detector in home: Yes Firearms in home: No Do you feel safe at home: Yes Do you feel safe in your relationship?: Yes Additional Social history: Lives alone. Daughter Carmelina and son-in-law Ed very involved in her life. Ed goes to most [facility] apts with Veena. Veena's from cancer after 1 day on hospice. She reports My cancer is incurable, but it is treatable. Usually volunteers at [facility]. Not strong enough. Exam Const General: cooperative, no acute distress, well developed and well groomed Nutritional Appearance: cachectic Orientation: alert, awake and oriented x3 [facility] Head: normocephalic and atraumatic Ears: hearing grossly normal bilaterally and external ears normal General nose exam: external nose normal Face and sinus: normal facial exam and sinuses nontender Mouth: oral mucosae normal, lip normal, tongue normal and moist mucous membranes Teeth and gingiva: dentition normal Other: temporal muscle wasting alopecia Eyes General: appearance normal, both eyes and all related structures Conjunctivae: conjunctivae normal Sclera: sclerae normal Pupils: PERRL Other: photophobia Neck Neck: normal visual inspection and full ROM Chest Chest: normal inspection of the chest Resp Effort & Inspection: able to speak in complete sentences, no cough, no nasal flaring, tachypneic (mild ) and no use of accessory muscles Auscultation: no rales, no rhonchi, no wheezes and other (decreased BS R base ) Cardio Jugular venous pressure: no JVD Rate: regular rate Rhythm: regular rhythm GI Inspection: normal to inspection, no edema and non-distended Palpation: soft, no masses, nontender and No ascites Auscultation: normal bowel sounds Skin General skin exam: no rashes or lesions noted Trauma: no lacerations or abrasions Neuro General: alert, oriented x3, oriented, gait normal, moves all extremities, no focal motor deficits and CN's II-XI intact bilaterally Cognition: normal cognition Speech: speech normal Extrem General: normal to inspection, full ROM and no clubbing, cyanosis or edema Psych Appearance: grossly normal and well kempt Mental Status: mental status grossly normal Speech and Movement: speech and movement normal Affect: normal affect Results Last Vital Signs Temp 37 C 09/21/19 15:28 Pulse 107 H 09/21/19 15:28 Resp 28 H 09/21/19 15:28 BP 122/78 09/21/19 15:28 Pulse Ox 94 L 09/21/19 15:28 Labs Labs: Laboratory Results - last 24 hr 09/21/19 09/21/19 09/21/19 09:08 10:15 12:45 PT 12.1 H INR 1.2 H APTT 27.2 Magnesium 0.8 L Troponin I < 0.05 Cancelled
== END 2019-09-21 15:09 | disposition home or self-care (01) ==
PROVIDERS: Emergency Provider Physician Assistant; PCP Nurse Practitioner
DX: R06.02 Shortness of breath (principal); J91.0 Malignant pleural effusion; C34.11 Malignant neoplasm of upper lobe, right bronchus or lung; Z98.890 Other specified postprocedural states; E87.6 Hypokalemia; E83.42 Hypomagnesemia
CPT/HCPCS: 32555; 36415; 80053; 93005; 96365; 96366; 96368; 96375; 99252; 99284; 99285; 71045; 71046; 83615; 83735; 84439; 84443; 84484; 85025; 85610; 85730; 93010; J2060; J3475

== ENCOUNTER 2019-11-02 00:06 | Outpatient (CLI) | payer MEDICARE, BC, SELFPAY ==
[2019-11-02] MEDS: Omnipaque 350 MG/ML 100 ML BTL IJ (09:12)
[2019-11-02] MEDS: Normal Saline Flush 10 ML SYR IVP (09:14)
--- NOTE | 2019-11-02 09:21 | DI.CT_ITS ---
EXAM: CT CHEST W CLINICAL HISTORY: STAGE 4 LUNG CANCER, RT C34.91, PLEURAL METASTASIS C78.2 TECHNIQUE: Post IV contrast. COMPARISON: CT CHEST/ABD W from 06/04/2019 FINDINGS: A large right pleural effusion is again noted. It now appears loculated. There is adjacent compress grace atelectasis. Previously noted mass in the left upper lobe is no longer seen. There has been mar ked interval decrease in size of hilar and mediastinal adenopathy. There has been interval increase in size of the large destructive lesion of the right posterior 10th rib, now measuring 6.7 x 2.7 cm. There is a trace pericardial effusion which appears new when compared with the previous exam. No la rge pulmonary emboli. There are no new pulmonary nodules or new bony metastatic lesions identified. A port is again noted over the right upper chest with the tip in lower SVC. The thyroid nodules lindsay ear stable. IMPRESSION: Marked interval reduction in size of right hilar and mediastinal adenopathy. The previously noted le ft upper lobe mass is no longer seen. Interval increase in size of right 10th rib lesion. Roughly s table size right pleural effusion which now appears loculated.
== END 2019-11-02 00:26 ==
PROVIDERS: PCP Nurse Practitioner; Visit Provider Internal Medicine Hospice and Palliative Medicine
DX: C34.91 Malignant neoplasm of unspecified part of right bronchus or lung (principal); C78.2 Secondary malignant neoplasm of pleura; J90 Pleural effusion, not elsewhere classified
CPT/HCPCS: 96523; 71260; J3490

== ENCOUNTER 2019-11-02 09:00 | Outpatient (RCR) | payer MEDICARE, BC, SELFPAY ==
[2019-10-26] MEDS: Normal Saline Flush 10 ML SYR IVP (09:00)
[2019-10-26 09:22] LABS: Abs Immature Grans 0.02 k/cumm (0.0-0.09); Absolute Basophil Count 0.03 k/cumm (0.0-0.2); Absolute Eosinophil Count 0.12 k/cumm (0.0-0.7); Absolute Lymphocyte Count 0.91 k/cumm (1.2-3.4); Absolute Monocyte Count 0.73 k/cumm (0.11-0.7); Absolute Neutrophil Count 4.83 k/cumm (1.2-6.7); Basophils % 0.5; Eosinophils % 1.8; HCT 37.9 % (36.0-46.0); HGB 12.3 g/dL (12.0-15.5); Immature Grans % 0.3; Lymphocytes % 13.7; Mean Corp. HGB Concentration 32.5 g/dL (32.0-36.0); Mean Corpuscular Volume 95.5 fL (80-95); Neutrophils % 72.7; Platelet Count 304 x1000/uL (130-400); RBC 3.97 m/cumm (4.00-5.20); RBC Distribution Width 13.5 % (11.7-14.6); White Blood Cell Count 6.64 k/cumm (4.4-10.8)
[2019-10-26 09:40] LABS: ALT 17 U/L (14-59); AST 23 U/L (15-37); Albumin 2.5 g/dL (3.4-5.0); Alkaline Phosphatase 85 U/L (46-116); Anion Gap 10.4 mmol/L (3-11); BUN 11 mg/dL (7-18); Bilirubin, Total 0.4 mg/dL (0.2-1.0); CO2 28.6 mmol/L (21.0-32.0); CREATININE 0.64 mg/dL (0.55-1.02); Calcium 8.3 mg/dL (8.5-10.1); Chloride 102 mmol/L (98-107); FREE T4 1.44 ng/dL (0.76-1.46); Glucose 90 mg/dL (74-106); LDH 175 U/L (81-234); Sodium 141 mmol/L (136-145); TSH 2.03 uIU/mL (0.36-3.74); Total Protein 5.7 g/dL (6.4-8.2)
[2019-10-26 09:59] LABS: Potassium 2.9 mmol/L (3.5-5.1)
[2019-10-26 16:44] LABS: Magnesium 0.8 mg/dL (1.8-2.4)
[2019-11-02] MEDS: Heparin 500 UNITS/5 ML SYRINGE IV (09:26)
[2019-11-02] MEDS: Normal Saline Flush 10 ML SYR IVP (09:26)
== END 2019-11-24 23:59 | disposition home or self-care (01) ==
LOC: INF 09:00
PROVIDERS: PCP Nurse Practitioner; Visit Provider Internal Medicine Hospice and Palliative Medicine
DX: C77.9 Secondary and unspecified malignant neoplasm of lymph node, unspecified (principal); C34.11 Malignant neoplasm of upper lobe, right bronchus or lung; Z79.899 Other long term (current) drug therapy
CPT/HCPCS: 36591; 80053; 96523; 83615; 83735; 84439; 84443; 85025

== ENCOUNTER 2019-11-17 03:48 | Outpatient (RCR) | payer MEDICARE, BC, SELFPAY ==
[2019-11-17 10:46] LABS: Abs Immature Grans 0.02 k/cumm (0.0-0.09); Absolute Basophil Count 0.03 k/cumm (0.0-0.2); Absolute Eosinophil Count 0.17 k/cumm (0.0-0.7); Absolute Lymphocyte Count 1.14 k/cumm (1.2-3.4); Absolute Monocyte Count 0.67 k/cumm (0.11-0.7); Absolute Neutrophil Count 5.43 k/cumm (1.2-6.7); Basophils % 0.4; Eosinophils % 2.3; HCT 36.7 % (36.0-46.0); HGB 11.9 g/dL (12.0-15.5); Immature Grans % 0.3; Lymphocytes % 15.3; Mean Corp. HGB Concentration 32.4 g/dL (32.0-36.0); Mean Corpuscular Hemoglobin 30.7 pg (27.0-33.0); Mean Corpuscular Volume 94.6 fL (80-95); Mean Platelet Volume 10.1 fL (8.0-11.0); Neutrophils % 72.7; Platelet Count 256 x1000/uL (130-400); RBC 3.88 m/cumm (4.00-5.20); RBC Distribution Width 13.5 % (11.7-14.6); White Blood Cell Count 7.46 k/cumm (4.4-10.8)
[2019-11-17] MEDS: Normal Saline Flush 10 ML SYR IVP (10:47)
[2019-11-17 11:01] LABS: ALT 13 U/L (14-59); AST 17 U/L (15-37); Albumin 2.4 g/dL (3.4-5.0); Alkaline Phosphatase 77 U/L (46-116); Anion Gap 8.9 mmol/L (3-11); BUN 13 mg/dL (7-18); Bilirubin, Total 0.3 mg/dL (0.2-1.0); CO2 28.1 mmol/L (21.0-32.0); Calcium 8.5 mg/dL (8.5-10.1); Chloride 106 mmol/L (98-107); FREE T4 1.02 ng/dL (0.76-1.46); Glucose 98 mg/dL (74-106); LDH 169 U/L (81-234); Sodium 143 mmol/L (136-145); TSH 0.95 uIU/mL (0.36-3.74); Total Protein 5.6 g/dL (6.4-8.2)
== END 2019-11-24 23:59 | disposition home or self-care (01) ==
LOC: INF 03:48
PROVIDERS: PCP Nurse Practitioner; Visit Provider Internal Medicine Hospice and Palliative Medicine
DX: C34.91 Malignant neoplasm of unspecified part of right bronchus or lung (principal); R53.82 Chronic fatigue, unspecified; Z45.2 Encounter for adjustment and management of vascular access device
CPT/HCPCS: 36591; 80053; 83615; 84439; 84443; 85025

== ENCOUNTER 2019-11-18 10:39 | Emergency (ER) | payer MEDICARE, BC, SELFPAY ==
[2019-11-18] VITALS (38 sets, daily range): BP systolic 53–123; BP diastolic 27–87; PULSE 73–138; RESP 0–32; TEMP 36.6; O2SAT 94–95
--- NOTE | 2019-11-18 11:02 | ED.GENADUL_ITS ---
Discharge Plan Disposition Patient Disposition: HOME Condition: Improving Discharge Details Chief Complaint: GenMedical Clinical Impression: Dehydration, Orthostatic hypotension Primary Care Provider: Maddie Rosenthal ED Provider: Regi Styles Home Meds and New Rx's Prescriptions: No Action calcium carbonate 600 mg calcium (1,500 mg) tablet 600 mg PO DAILY RF: 0 tramadol 50 mg tablet 50 mg PO Q6H PRN (Reason: pain) RF: 0 dronabinol 2.5 mg capsule 2.5 mg PO QACDINNER MDD 20 mg Qty: 56 RF: 0 omeprazole 20 MG capsule,delayed release(DR/EC) 20 mg PO DAILY RF: 0 cholecalciferol (vitamin D3) [Vitamin D3] 1,000 UNIT capsule 1,000 unit PO DAILY RF: 0 Daily Multiple 1 EACH tablet 1 ea PO DAILY RF: 0 potassium chloride 10 mEq tablet,ER particles/crystals 10 meq PO BID RF: 0 prochlorperazine maleate 10 mg tablet 10 mg PO Q6H PRNRF: 0 olanzapine 2.5 mg tablet 2.5 mg PO QHS RF: 0 cephalexin [Keflex] 500 mg capsule 500 mg PO BID Qty: 8 RF: 0 dexamethasone 2 mg tablet 2 mg PO BID RF: 0 oxycodone 5 mg capsule 5 mg PO Q4H PRNRF: 0 sennosides [Senna Lax] 8.6 mg tablet 17.2 mg PO QHS RF: 0 metoprolol succinate 25 mg tablet extended release 24 hr 50 mg PO DAILY Qty: 90 RF: 1 Discharge Instructions Instructions: Dehydration (ED) Additional Instructions: Push and drink plenty of fluids by mouth. Rest activities as tolerated. Ambulate with walker. Follow-up promptly with your oncology team and primary care doctor. Return to the emergency room for any worsening, alarming symptoms or concerns sooner if needed Medical Decision Making Is a 79-year-old patient who presents with known stage IV lung cancer with metastases complaining of dizziness when standing this morning associated with mild nausea single episode of dry heaving and abdominal discomfort. Of note patient was evaluated by home nursing and was notably hypertensive with a systolic of greater than 200, they called their oncologist who recommended ER evaluation. Patient arrives normotensive. Patient reports abdominal discomfort has since improved. Patient reports abdominal discomfort improved after having a bowel movement. Patient denies any blood with the bowel movement. Patient reports nausea resulted in a single episode of dry heaving and has also since improved. Patient per the family has had significant difficulty maintaining hydration despite several attempts of creatively hydrating her using fruit juices, protein drinks, ice chips. Patient reports mild chest pressure this morning but no active chest pain, no pressure at this time. Patient denies any new back pain although does have some chronic back pain. Patient denies numbness or tingling of her extremities. Denies headache at this time. Patient was recently on chemotherapy and has been on immunotherapy which she received yesterday followed by prednisone today. Patient reports she has not had reactions to immunotherapy in the past and feels this is unlikely a reaction to her medications. On exam patient does appear dehydrated. Patient does have notable upper abdominal pain with palpation which is moderate. No obvious rebound or peritoneal signs. ECG obtained which reveals a heart rate of 80, sinus rhythm, no ST elevation CT changes noted. RSR in V1 noted which is nondiagnostic. Low voltage noted. This was reviewed with Dr. Con Locke. Labs ordered as well as CT imaging of chest and abdomen specifically to identify any thoracic or abdominal aortic pathology. Patient does report feeling improved, however appears quite dehydrated clinically. Patient did report her episodes of dizziness were more notable when standing or changing position. Orthostatics were checked. Patient is notably orthostatic. Sitting heart rate 93, standing 138. Sitting BP 74/27, standing 53/43. IV fluids ordered. Reevaluation of the patient reveals full resolution of her abdominal complaints. No persistent nausea. Patient was provided a single dose of Zofran. Patient CT of her abdomen reveals findings in her chest which are unchanged consistent with metastatic disease. Additional metastatic disease was noted to the liver this was described and discussed with the patient and family. No other specific etiology of patient's abdominal pain was identified. Abdominal aneurysm is noted on the CT this was also discussed with the family however no identifiable dissection or rupture. Patient's labs today are reassuring. Patient has no significant leukocytosis or shift. Patient's renal function is normal as well as LFTs. Patient has notable decrease in albumin. However she does not appear to be retaining fluid clinically. Urinalysis unremarkable for obvious infection at this time. Patient does feel significantly improved. Reports dizziness has resolved. Patient has approximately 200 cc of fluid remaining however patient declines any additional IV fluid. Patient was offered admission to the hospital for her complaints however she does not feel she needs hospital admission at this time. Patient feels more comfortable discharge home with prompt follow-up with her providers. Patient again stresses she does feel improved and request discharge home. I discussed this plan with the family who also agrees. Encouraged prompt follow-up with her providers. Insert discharge statement HPI General Date/Time Provider Initiated Documentation: 11/18/19 10:41 . HPI Narrative: This is a 79-year-old woman who has known lung cancer with metastases. Patient presents for onset of abdominal pain associated with dizziness and dry heaving this morning. Patient reports abdominal cramping is improved at this time. Patient denies obvious chest pain she does report mild pressure in her chest. Patient denies headache. She does report dizziness described as intermittent worse when standing and described as spinning which she does not report worse with head movement only when standing. Denies dizziness currently. Patient is unsure if she has had loose stool or constipation. Patient does report the pain does relieved somewhat after bowel movement this morning. Patient denies urina ry urgency or frequency. Patient does report she had been eating and drinking without difficulty prior to today. Patient reports she has a known history of lung cancer with metastases. Patient has undergone chemotherapy and is currently undergoing immunotherapy. Patient received last dose of immunotherapy yesterday. Patient did receive prednisone thereafter. Patient denies any obvious side effects after immunotherapy in the past therefore did not feel this was likely related. Patient does report dizziness intermittently reports this seems somewhat different this morning. Denies vision change or blurred vision. Denies fever or chills. Related Data Home Medications Medication Instructions Recorded Confirmed Daily Multiple 1 ea PO DAILY 06/12/16 11/18/19 cholecalciferol (vitamin D3) 1,000 unit PO DAILY 06/12/16 11/18/19 [Vitamin D3] omeprazole 20 mg PO DAILY tab-cap 06/12/16 11/18/19 calcium carbonate 600 mg calcium 600 mg PO DAILY 07/16/19 11/18/19 (1,500 mg) tablet tramadol 50 mg tablet 50 mg PO Q6H PRN 07/16/19 11/18/19 potassium chloride 10 mEq 10 meq PO BID 07/29/19 11/18/19 tablet,extended release(part/cryst) prochlorperazine maleate 10 mg 10 mg PO Q6H PRN 08/11/19 11/18/19 tablet olanzapine 2.5 mg tablet 2.5 mg PO QHS 08/12/19 11/18/19 dronabinol 2.5 mg capsule 2.5 mg PO QACDINNER #56 cap MDD 20 08/18/19 11/18/19 mg cephalexin 500 mg capsule 500 mg PO BID #8 tab-cap 08/21/19 11/18/19 dexamethasone 2 mg tablet 2 mg PO BID 08/26/19 11/18/19 oxycodone 5 mg capsule 5 mg PO Q4H PRN 08/26/19 11/18/19 sennosides 8.6 mg tablet 17.2 mg PO QHS tab 08/26/19 11/18/19 metoprolol succinate 25 mg 50 mg PO DAILY #90 tab 09/15/19 11/18/19 tablet,extended release 24 hr Previous Rx's Medication Instructions Recorded dronabinol 2.5 mg capsule 2.5 mg PO QACDINNER #56 cap MDD 20 08/18/19 mg cephalexin 500 mg capsule 500 mg PO BID #8 tab-cap 08/21/19 metoprolol succinate 25 mg 50 mg PO DAILY #90 tab 09/15/19 tablet,extended release 24 hr Allergies Allergy/AdvReac Type Severity Reaction Status Date / Time No Known Allergies Allergy Verified 11/18/19 11:02 General Stated Complaint: GenMedical ROSALBA: 3 Review of Systems All systems reviewed & are unremarkable except as noted in HPI and below Constitutional Constitutional: Denies chills, Denies fever(s), Denies headache(s) and Reports poor appetite ENT Ears, Nose, Mouth, and Throat: Denies headache(s), Denies nasal obstruction and Denies sore throat Respiratory Respiratory: Reports cough Gastrointestinal Gastrointestinal: Reports abdominal pain, Reports nausea and Reports vomiting Genitourinary Genitourinary: Denies dysuria Neurologic Neurologic: Denies headache(s) [facility] Medical History Basal cell carcinoma, face Cancer of bronchus of right upper lobe (Acute) Metastatic , 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 Dehydration (Acute) Dizziness (Acute) DNI (do not intubate) (Acute) DNR (do not resuscitate) (Acute) Fatigue (Acute) GERD (gastroesophageal reflux disease) Goals of care, counseling/discussion (Acute) Hypokalemia (Acute) Low serum magnesium level (Acute) Malignant pleural effusion (Chronic) has had thorancentesis x 2 with good results Palliative care patient (Acute) POLST (Physician Orders for Life-Sustaining Treatment) (Acute) Tachycardia (Acute) Unintentional weight loss (Acute) Social History Smoking/Tobacco Use Status: Former Tobacco Use Quit Date: 11/25/99 Tobacco: How many years used: 30 Alcohol Intake: never Drug use: Never Details: synthetic antiemetic RX Caregiver/Support person: No Household members: none Housing: house Number of Children: 3 Communication Needs: Hard of Hearing Education Level: high school Do you need help understanding health information?: Rarely current occupation: Retired; worked for [employer] worked for [employer] Pets and animals: Yes Pets and animals: cat(s) and dog(s) Sexually active: No Do you think of yourself as: straight/heterosexual Current gender identity: female What is your relationship status?: How often do you talk on the phone with friends or family?: three or more times per week How often do you get together with friends or relatives?: three or more times per week Do you belong to any clubs or organized social groups?: no Panel score (0-1 are the most socially isolated patients): 1 What type of physical activity do you participate in: none and sedentary lifestyle Special eliane needs: No Seatbelt use: always Drive intox or ride w/intox route driver coin machines: No Water heater temp set <120 deg: Yes Working smoke detector in home: Yes Fire extinguisher in home: Yes Carbon monox detector in home: Yes Firearms in home: No Do you feel safe at home: Yes Do you feel safe in your relationship?: Yes Additional Social history: Lives alone. Daughter Carmelina and son-in-law Ed very involved in her life. Ed goes to most [facility] apts with Veena. Veena's from cancer after 1 day on hospice. She reports My cancer is incurable, but it is treatable. Usually volunteers at [facility]. Not strong enough. Exam Narrative Exam Narrative: CONST: Pale. Alert and oriented x3. HENMT: Head nomocephalic, normal to inspection. Atraumatic. Hearing grossly normal. External ear canal no erythema or swelling. TM normal bilaterally. Nose normal to inspection. No rhinnorhea. Normal facial exam. Oral mucosa dry. Normal posterior oropharynx. Uvula midline. EYES: General normal appearance. Alignment normal. Eyelids normal. Conjunctiva normal. Sclera normal. PERRL. NECK: Normal visual inspection. FROM. No lymphadenopathy. Trachea midline. No Midline tenderness. CHEST: Normal insepection of the chest. RESP: Normal respiratory effort. Speaking full sentences. Diminished breath sounds diffusely. No wheezing, rhonchi or rales. CARDIO: No JVD. Normal PMI. Regular Rate. Regular Rhythm. Normal peripheral pulses. GI: Normal inspection of abdomen. No distension. Soft. Diffuse upper abdominal pain with palpation. Bowel sounds present in all 4 quadrants. No rebound. No gaurding. MUSCULOSKELETAL: Unbalanced gait, without use of walker, with mild assistance. FROM of all extremities. Distal neurovascularly intact. Sensation intact distally. SKIN: Normal. Dry. No rashes. NEURO: Alert and oriented x3. Speech clear. PSYCH: Flat affect. Cooperative. Course Vital Signs Vital signs: Vital Signs Temperature 36.6 C 11/18/19 10:44 Pulse 94 H 11/18/19 10:44 Respiratory Rate 20 11/18/19 10:44 Blood Pressure 101/87 11/18/19 10:44 Pulse Oximetry 94 L 11/18/19 10:44 Temperature 36.6 C 11/18/19 10:44 Temperature Source Skin 11/18/19 10:44 Pulse 94 H 11/18/19 10:44 Respiratory Rate 20 11/18/19 10:44 Respiratory Effort 11/18/19 10:48 Blood Pressure 101/87 11/18/19 10:44 Blood Pressure Position Sitting 11/18/19 10:44 Pulse Oximetry 94 L 11/18/19 10:44 Oxygen Delivery Method Room Air 11/18/19 10:44 Oxygen Flow Rate 0 11/18/19 10:44
[2019-11-18 11:31] LABS: Abs Immature Grans 0.01 k/cumm (0.0-0.09); Absolute Basophil Count 0.03 k/cumm (0.0-0.2); Absolute Eosinophil Count 0.18 k/cumm (0.0-0.7); Absolute Lymphocyte Count 0.69 k/cumm (1.2-3.4); Absolute Monocyte Count 0.54 k/cumm (0.11-0.7); Absolute Neutrophil Count 4.75 k/cumm (1.2-6.7); Basophils % 0.5; Eosinophils % 2.9; HCT 36.2 % (36.0-46.0); HGB 11.9 g/dL (12.0-15.5); Immature Grans % 0.2; Lymphocytes % 11.1; Mean Corp. HGB Concentration 32.9 g/dL (32.0-36.0); Mean Corpuscular Hemoglobin 30.8 pg (27.0-33.0); Mean Corpuscular Volume 93.8 fL (80-95); Mean Platelet Volume 9.9 fL (8.0-11.0); Monocytes % 8.7; Neutrophils % 76.6; Platelet Count 209 x1000/uL (130-400); RBC 3.86 m/cumm (4.00-5.20); RBC Distribution Width 13.7 % (11.7-14.6)
[2019-11-18 11:50] LABS: ALT 18 U/L (14-59); AST 29 U/L (15-37); Albumin 2.5 g/dL (3.4-5.0); Alkaline Phosphatase 75 U/L (46-116); Anion Gap 9.7 mmol/L (3-11); BUN 13 mg/dL (7-18); Bilirubin, Total 0.3 mg/dL (0.2-1.0); CO2 27.3 mmol/L (21.0-32.0); CREATININE 0.67 mg/dL (0.55-1.02); Calcium 8.6 mg/dL (8.5-10.1); Chloride 104 mmol/L (98-107); Glucose 95 mg/dL (74-106); Lipase 104 U/L (73-393); Potassium 3.3 mmol/L (3.5-5.1); Sodium 141 mmol/L (136-145); Total Protein 5.7 g/dL (6.4-8.2); Troponin I < 0.05 ng/Ml (<0.06)
[2019-11-18] MEDS: Omnipaque 350 MG/ML 100 ML BTL IJ (12:17)
--- NOTE | 2019-11-18 12:42 | DI.CT_ITS ---
EXAM: CT CHEST PE ABD PELVIS W CLINICAL HISTORY: dizziness, abd pain, known CA TECHNIQUE: Imaging Protocol: Axial computed tomography images with coronal and sagittal reformatted images were created and reviewed Axial CT angiography was performed with multi-slice acquisition and multi-planar and/or 3D reconstruc tions. CONTRAST MATERIAL: Intravenous: Omnipaque 350 Contrast volume:125 mL contrast route:IV - Oral: No COMPARISON: CT CHEST/ABD W from 06/04/2019 FINDINGS: CHEST: Tracheobronchial tree: Patent where visualized. Mediastinum and Michelle: Unchanged mediastinal adenopathy. Thyroid gland: Multiple thyroid nodules. Correlation is recommended. Pulmonary parenchyma: Areas of compressive atelectasis or pneumonia in the right lung. Pleura: Semi loculated large right pleural effusion. No left pleural effusion. Lymph nodes: Stable mediastinal adenopathy. Aorta: Atherosclerosis. Heart: No cardiomegaly or pericardial effusion. Pulmonary arteries: Unremarkable. Tubes and catheters: Right-sided Port-A-Cath in good position. ABDOMEN: Liver: Normal density. Interval increase in number of hypodense masses within the liver. Portal, supe rior mesenteric and splenic veins are patent. Gallbladder and biliary tract: Cholecystectomy. No biliary ductal dilatation. Pancreas: Normal density, no abnormal calcifications or inflammatory process. Spleen: Normal. Kidneys: Normal size, contour and axis. No radiodense stones or obstructive uropathy. No masses seen. Adrenal glands: No masses seen. Aorta: Atherosclerosis. The infrarenal abdominal aorta measures 2.8 centimeters in maximum diameter. This compares with 2.8 centimeters on the prior examination. There is now mural thrombus seen within the dilated distal abdominal aorta. Lymph nodes: Within normal limits. PELVIS: Bladder: Symmetric distention, no gross wall thickening. Bowel: There is colonic diverticulosis. There is bowel wall thickening seen throughout the colon. The re is a question of mild pericolonic inflammatory changes in the splenic flexure. No obstruction is p resent. No findings to suggest acute appendicitis are present. Peritoneal cavity: There is a small amount of pelvic ascites. There is progressive thickening of the right hemidiaphragm. Suspicious for metastatic disease. Bones: There has been interval increase in size of the soft tissue mass and destructive lesion involv ing the right 10th rib and right transverse process. There is been interval development of soft tissu e adjacent to the posterior lateral aspect of the right 10th rib. This also raises the question of me tastatic disease. Reproductive organs: Within normal limits. Anterior abdominal wall: There is soft tissue anterior to the rectus abdominus muscles midline. This may represent metastatic disease. IMPRESSION: 1. Progressive hepatic metastatic disease. 2. Increased soft tissue thickening of the right hemidiaphragm suggesting worsening metastatic diseas e. 3. Increasing and new soft tissue masses associated with the right 10th rib. 4. Small amount of abdominal and pelvic ascites. 5. Colonic wall thickening suspicious for inflammatory or infectious colitis. 6. Worsening right pleural effusion. The effusion appears loculated in places. DATA REPOSITORY: All CT scans at this facility are submitted to the National Radiology Data Registry (NRDR) Dose Index Registry (DIR) with the [employer] (ACR). RADIATION OPTIMIZATION: All CT scans at this facility use at least one of these dose optimization te chniques: automated exposure control; mA and/or kV adjustment per patient size (includes targeted exa ms where dose is matched to clinical indication); or iterative reconstruction.
[2019-11-18] MEDS: Omnipaque 350 MG/ML 50 ML BTL IJ (12:46)
--- NOTE | 2019-11-18 13:07 | DI.VRAD_ITS ---
PROCEDURE INFORMATION: Exam: CT Angiography Chest With Contrast Exam date and time: 11/18/2019 12:26 PM Age: 79 years old Clinical indication: Abdominal pain; Acute; Other: Abdominal and chest, known mets, ? aorta pathology; Prior surgery; Surgery date: <1 month; Additional info: Dizziness, abdominal pain, known met CA TECHNIQUE: Imaging protocol: Computed tomographic angiography of the chest with intravenous contrast. 3D rendering: MIP and/or 3D reconstructed images were created by the technologist. Radiation optimization: All CT scans at this facility use at least one of these dose optimization techniques: automated exposure control; mA and/or kV adjustment per patient size (includes targeted exams where dose is matched to clinical indication); or iterative reconstruction. Contrast material: OMNI 350; Contrast volume: 125 ml; Contrast route: IV; COMPARISON: CT CHEST W 11/02/2019 9:15 AM FINDINGS: Tubes, catheters and devices: Right-sided Port-A-Cath in good position. Pulmonary arteries: No evidence of pulmonary embolism. Aorta: No aortic aneurysm. No aortic dissection. Thyroid: Mild inhomogeneity to the lobes of the thyroid without a specific mass. Lungs: Right basilar consolidation consistent with compressive atelectasis. Pleural space: Semi-loculated right pleural effusion. Heart: No cardiomegaly. No pericardial effusion. Lymph nodes: Mild mediastinal adenopathy unchanged most likely also representing metastatic disease. Bones/joints: Approximate 6 x 3 cm right postero-medial mass with bony destruction of the right 11th transverse process consistent with a malignant process in keeping with the history of pleural metastatic disease. Soft tissues: Unremarkable. IMPRESSION: No change from the prior examination with right pleural metastatic disease and a moderate sized semi-loculated pleural effusion. PROCEDURE INFORMATION: Exam: CT Abdomen And Pelvis With Contrast Exam date and time: 11/18/2019 12:26 PM Age: 79 years old Clinical indication: Abdominal pain; Acute; Other: Abdominal and chest, known mets, ? aorta pathology; Prior surgery; Surgery date: <1 month; Additional info: Dizziness, abdominal pain, known met CA TECHNIQUE: Imaging protocol: Computed tomography of the abdomen and pelvis with intravenous contrast. Radiation optimization: All CT scans at this facility use at least one of these dose optimization techniques: automated exposure control; mA and/or kV adjustment per patient size (includes targeted exams where dose is matched to clinical indication); or iterative reconstruction. Contrast material: OMNI 350; Contrast volume: 125 ml; Contrast route: IV; COMPARISON: CT CHEST W 11/02/2019 9:15 AM FINDINGS: Liver: Several small hypodense regions in the liver suggesting mild metastatic disease. There is a mass that involves the posterior aspect of the liver which appears to be related to the diaphragm. Gallbladder and bile ducts: Prior cholecystectomy. Pancreas: No ductal dilation. Spleen: No significant splenomegaly. Adrenals: No mass. Kidneys and ureters: No hydronephrosis. No solid mass. Stomach and bowel: Unremarkable. No obstruction. No mucosal thickening. Appendix: No evidence of appendicitis. Intraperitoneal space: Tiny amount of pelvic free fluid. Increased density in the left upper posterior and medial thigh sac etiology uncertain. Vasculature: 17.2 mm minimal aneurysmal dilatation of the abdominal aorta measuring 2.7 cm in greatest dimension with moderate mural thrombus. Lymph nodes: Unremarkable. No enlarged lymph nodes. Bladder: Unremarkable as visualized. Reproductive: Prior hysterectomy. Bones/joints: Degenerative disc and facet disease of lumbar spine with no evidence of acute lung abnormality. Soft tissues: Irregular area of density in the anterior subcutaneous tissues just superficial to the rectus muscle possibly representing metastatic disease. Other findings: Right chest findings as described on the CT angiogram of the chest. IMPRESSION: Findings in the chest as previously described with what appears to be additional metastatic disease to the liver. No additional specific etiology is identified within the abdomen or pelvis for the patient's symptoms. Dictated and Authenticated by: Eric Roth MD. Ordering:ANCELMO Deluna MD
[2019-11-18 13:18] LABS: Bilirubin Negative (Negative); Blood Negative (Negative); Clarity Clear (Clear); Glucose Negative (Negative); Ketones Negative (Negative); Leukocyte Esterase Negative (Negative); Nitrite Negative (Negative); Specific Gravity <= 1.005 (1.005-1.025); Urobilinogen 0.2 EU/dL (Up TO 0.2); pH 5.5 (5-8)
--- NOTE | 2019-11-19 17:21 | PDOC.ERCMPRO ---
Care Management Progress Note CM consult from ED for coordination of new outpatient referral for Palliative Care. CM faxed referral including ED clinicals to the [facility].
== END 2019-11-18 14:44 | disposition home or self-care (01) ==
PROVIDERS: Emergency Provider Physician Assistant; PCP Nurse Practitioner
DX: E86.0 Dehydration (principal); I95.1 Orthostatic hypotension; R11.0 Nausea; C34.91 Malignant neoplasm of unspecified part of right bronchus or lung; Z95.828 Presence of other vascular implants and grafts; Z79.899 Other long term (current) drug therapy
CPT/HCPCS: 36591; 71275; 74177; 80053; 83690; 87449; 93005; 99285; 81003; 84484; 85025; 87086; 93010; 99284; J3490; L3908; Q9967

== ENCOUNTER 2019-12-07 02:33 | Outpatient (RCR) | payer MEDICARE, BC, SELFPAY ==
[2019-12-07] MEDS: Normal Saline Flush 10 ML SYR IVP (10:15)
[2019-12-07 10:44] LABS: Abs Immature Grans 0.03 k/cumm (0.0-0.09); Absolute Basophil Count 0.01 k/cumm (0.0-0.2); Absolute Eosinophil Count 0.06 k/cumm (0.0-0.7); Absolute Lymphocyte Count 1.53 k/cumm (1.2-3.4); Absolute Monocyte Count 0.68 k/cumm (0.11-0.7); Absolute Neutrophil Count 8.05 k/cumm (1.2-6.7); Basophils % 0.1; Eosinophils % 0.6; HGB 12.8 g/dL (12.0-15.5); Immature Grans % 0.3 %; Lymphocytes % 14.8; Mean Corp. HGB Concentration 33.7 g/dL (32.0-36.0); Mean Corpuscular Hemoglobin 31.1 pg (27.0-33.0); Mean Corpuscular Volume 92.2 fL (80-95); Mean Platelet Volume 9.8 fL (8.0-11.0); Monocytes % 6.6; Neutrophils % 77.6; Platelet Count 230 x1000/uL (130-400); RBC 4.12 m/cumm (4.00-5.20); RBC Distribution Width 14.4 % (11.7-14.6); White Blood Cell Count 10.36 k/cumm (4.4-10.8)
[2019-12-07 11:05] LABS: ALT 28 U/L (14-59); AST 15 U/L (15-37); Albumin 2.8 g/dL (3.4-5.0); Alkaline Phosphatase 78 U/L (46-116); Anion Gap 8.3 mmol/L (3-11); BUN 20 mg/dL (7-18); Bilirubin, Total 0.4 mg/dL (0.2-1.0); CO2 27.7 mmol/L (21.0-32.0); CREATININE 0.63 mg/dL (0.55-1.02); Calcium 8.9 mg/dL (8.5-10.1); Chloride 103 mmol/L (98-107); FREE T4 1.08 ng/dL (0.76-1.46); Glucose 112 mg/dL (74-106); LDH 145 U/L (81-234); Potassium 3.8 mmol/L (3.5-5.1); Sodium 139 mmol/L (136-145); TSH 1.11 uIU/mL (0.36-3.74); Total Protein 5.8 g/dL (6.4-8.2)
== END 2019-12-25 23:59 | disposition home or self-care (01) ==
LOC: INF 02:33
PROVIDERS: PCP Nurse Practitioner; Visit Provider Internal Medicine Hospice and Palliative Medicine
DX: C77.9 Secondary and unspecified malignant neoplasm of lymph node, unspecified (principal); C34.11 Malignant neoplasm of upper lobe, right bronchus or lung; Z79.899 Other long term (current) drug therapy
CPT/HCPCS: 36591; 80053; 83615; 84439; 84443; 85025

== ENCOUNTER 2019-12-25 07:26 | Outpatient (CLI) | payer MEDICARE, BC, SELFPAY ==
--- NOTE | 2019-12-25 | DI.RAD_ITS ---
EXAM: XR CHEST 2V PA LATERAL CLINICAL HISTORY: Pleural Effusion j90 TECHNIQUE: COMPARISON: XR PORTABLE CHEST AP from 09/21/2019 FINDINGS: AP and lateral chest views were obtained. There is a right Port-A-Cath in position, the tip of which overlies the SVC. There has been reaccumulation of right pleural effusion since the post thoracente sis chest film of September 21. Lungs appear grossly clear. No significant left pleural effusion se en. IMPRESSION: Interval reaccumulation of right pleural effusion as described above.
== END 2019-12-25 07:46 ==
PROVIDERS: PCP Nurse Practitioner; Visit Provider Physical Therapy Assistant
DX: Z95.828 Presence of other vascular implants and grafts; J91.0 Malignant pleural effusion; R07.81 Pleurodynia
CPT/HCPCS: 99213; 71046

== ENCOUNTER 2019-12-29 01:33 | Outpatient (CLI) | payer MEDICARE, BC, SELFPAY ==
[2019-12-29] MEDS: Omnipaque 350 MG/ML 50 ML BTL IJ (10:48)
[2019-12-29] MEDS: Breeza Beverage 473 ML BTL PO ×2 (10:49)
--- NOTE | 2019-12-29 11:28 | DI.CT_ITS ---
EXAM: CT CHEST/ABD/PEL W CLINICAL HISTORY: RT STAGE IV LUNG CA, C34.91, LIVER METS, C78.7, RESTAGING. TECHNIQUE: Imaging Protocol: Axial computed tomography images with coronal and sagittal reformatted images were created and reviewed CONTRAST MATERIAL: Intravenous: Omnipaque 350 Contrast volume:100 ml Oral: yes COMPARISON: CT CHEST PE ABD PELVIS W from 11/18/2019 FINDINGS: CHEST: Thyroid: Stable thyroid nodules. Tracheobronchial tree: Patent where visualized. Mediastinum and Michelle: Stable mediastinal adenopathy. Pulmonary parenchyma: Emphysematous changes in the lungs. Stable areas of atelectasis in the right l janelle. Pleura: No pneumothorax. The right pleural effusion, though large, has shown some decrease in size. Lymph nodes: See above. Aorta: Atherosclerosis. Heart: Normal limits. No significant pericardial effusion. Mild coronary artery calcification. Bones: Stable soft tissue mass and destruction of the right 10th rib and right transverse process of the 10th vertebra. There is persistent thickening of the right hemidiaphragm suspicious for metastatic disease. This is stable. There is again seen a stable soft tissue nodule adjacent to the right 10th rib. ABDOMEN: Liver: Normal density. Stable hepatic masses. Gallbladder and biliary tract: Status post cholecystectomy. No biliary ductal dilatation. Pancreas: Normal density, no abnormal calcifications or inflammatory process. Spleen: Normal. Kidneys: Normal size, contour and axis. No radiodense stones or obstructive uropathy. Stable left cary al cyst. Adrenal glands: Stable Aorta: Atherosclerosis. Stable aneurysm. Lymph nodes: Within normal limits. PELVIS: Bladder: Symmetric distention, no gross wall thickening. Bowel: Diverticulosis. No evidence of acute diverticulitis. Peritoneal cavity: No ascites. Stable retroperitoneal soft tissue in the aortocaval region in the up per abdomen. Stable mesenteric soft tissue mass in the lower right quadrant. Bones: Degenerative changes. Reproductive organs: The patient appears to be status post hysterectomy. IMPRESSION: 1. Slight interval decrease in the right pleural effusion. 2. Resolution of the abdominal and pelvic ascites. 3. Otherwise stable findings in the chest, abdomen and pelvis. DATA REPOSITORY: All CT scans at this facility are submitted to the National Radiology Data Registry (NRDR) Dose Index Registry (DIR) with the [employer] (ACR). RADIATION OPTIMIZATION: All CT scans at this facility use at least one of these dose optimization te chniques: automated exposure control; mA and/or kV adjustment per patient size (includes targeted exa ms where dose is matched to clinical indication); or iterative reconstruction.
[2019-12-29] MEDS: Omnipaque 350 MG/ML 100 ML BTL IJ (11:32)
== END 2019-12-29 01:53 ==
PROVIDERS: PCP Nurse Practitioner; Visit Provider Internal Medicine Hospice and Palliative Medicine
DX: C34.91 Malignant neoplasm of unspecified part of right bronchus or lung (principal); C78.7 Secondary malignant neoplasm of liver and intrahepatic bile duct; Z12.89 Encounter for screening for malignant neoplasm of other sites; J90 Pleural effusion, not elsewhere classified; E04.2 Nontoxic multinodular goiter; J98.4 Other disorders of lung; Z90.49 Acquired absence of other specified parts of digestive tract
CPT/HCPCS: 36591; 74177; 80053; 71260; 83615; 84439; 84443; 85025; J3490; Q9967

== ENCOUNTER 2020-01-19 10:00 | Outpatient (RCR) | payer MEDICARE, BC, SELFPAY ==
[2019-12-29] MEDS: Normal Saline Flush 10 ML SYR IVP (09:35)
[2019-12-29 09:36] LABS: Abs Immature Grans 0.03 k/cumm (0.0-0.09); Absolute Basophil Count 0.01 k/cumm (0.0-0.2); Absolute Eosinophil Count 0.05 k/cumm (0.0-0.7); Absolute Monocyte Count 0.46 k/cumm (0.11-0.7); Absolute Neutrophil Count 6.07 k/cumm (1.2-6.7); Basophils % 0.1; Eosinophils % 0.6; HCT 39.9 % (36.0-46.0); HGB 13.3 g/dL (12.0-15.5); Immature Grans % 0.4 %; Lymphocytes % 14.2; Mean Corp. HGB Concentration 33.3 g/dL (32.0-36.0); Mean Corpuscular Hemoglobin 30.7 pg (27.0-33.0); Mean Corpuscular Volume 92.1 fL (80-95); Mean Platelet Volume 9.5 fL (8.0-11.0); Neutrophils % 78.7; Platelet Count 215 x1000/uL (130-400); RBC 4.33 m/cumm (4.00-5.20); RBC Distribution Width 14.8 % (11.7-14.6); White Blood Cell Count 7.72 k/cumm (4.4-10.8)
[2019-12-29 09:59] LABS: ALT 22 U/L (14-59); AST 14 U/L (15-37); Albumin 2.8 g/dL (3.4-5.0); Alkaline Phosphatase 73 U/L (46-116); Anion Gap 7.3 mmol/L (3-11); BUN 24 mg/dL (7-18); Bilirubin, Total 0.5 mg/dL (0.2-1.0); CO2 27.7 mmol/L (21.0-32.0); CREATININE 0.77 mg/dL (0.55-1.02); Calcium 8.3 mg/dL (8.5-10.1); Chloride 104 mmol/L (98-107); FREE T4 1.31 ng/dL (0.76-1.46); Glucose 120 mg/dL (74-106); LDH 146 U/L (81-234); Potassium 3.2 mmol/L (3.5-5.1); Sodium 139 mmol/L (136-145); TSH 1.65 uIU/mL (0.36-3.74); Total Protein 5.7 g/dL (6.4-8.2)
[2020-01-19] MEDS: Normal Saline Flush 10 ML SYR IVP (10:05)
[2020-01-19 10:42] LABS: Abs Immature Grans 0.04 k/cumm (0.0-0.09); Absolute Basophil Count 0.02 k/cumm (0.0-0.2); Absolute Eosinophil Count 0.05 k/cumm (0.0-0.7); Absolute Lymphocyte Count 0.79 k/cumm (1.2-3.4); Absolute Monocyte Count 0.61 k/cumm (0.11-0.7); Absolute Neutrophil Count 8.47 k/cumm (1.2-6.7); Basophils % 0.2; Eosinophils % 0.5; HCT 38.2 % (36.0-46.0); HGB 12.7 g/dL (12.0-15.5); Immature Grans % 0.4 %; Lymphocytes % 7.9; Mean Corp. HGB Concentration 33.2 g/dL (32.0-36.0); Mean Corpuscular Volume 93.2 fL (80-95); Mean Platelet Volume 9.8 fL (8.0-11.0); Monocytes % 6.1; Neutrophils % 84.9; Platelet Count 230 x1000/uL (130-400); RBC Distribution Width 14.5 % (11.7-14.6); White Blood Cell Count 9.98 k/cumm (4.4-10.8)
[2020-01-19 11:15] LABS: ALT 19 U/L (14-59); AST 15 U/L (15-37); Albumin 2.8 g/dL (3.4-5.0); Alkaline Phosphatase 78 U/L (46-116); Anion Gap 8.3 mmol/L (3-11); BUN 16 mg/dL (7-18); Bilirubin, Total 0.5 mg/dL (0.2-1.0); CO2 28.7 mmol/L (21.0-32.0); CREATININE 0.75 mg/dL (0.55-1.02); Calcium 8.9 mg/dL (8.5-10.1); Chloride 103 mmol/L (98-107); Glucose 94 mg/dL (74-106); Potassium 3.6 mmol/L (3.5-5.1); Sodium 140 mmol/L (136-145); TSH 0.95 uIU/mL (0.36-3.74); Total Protein 5.8 g/dL (6.4-8.2)
[2020-01-19 12:12] LABS: FREE T4 1.33 ng/dL (0.76-1.46); LDH 160 U/L (81-234)
== END 2020-01-23 23:59 | disposition home or self-care (01) ==
LOC: INF 10:00
PROVIDERS: PCP Nurse Practitioner; Visit Provider Internal Medicine Hospice and Palliative Medicine
DX: Z45.2 Encounter for adjustment and management of vascular access device (principal); C34.91 Malignant neoplasm of unspecified part of right bronchus or lung; Z79.899 Other long term (current) drug therapy
CPT/HCPCS: 36591; 80053; 83615; 84439; 84443; 85025

== ENCOUNTER 2020-02-01 15:50 | Emergency (ER) | payer MEDICARE, BC, SELFPAY ==
[2020-02-01] VITALS (19 sets, daily range): BP systolic 82–148; BP diastolic 50–83; PULSE 74–93; RESP 8–26; TEMP 36.8; O2SAT 91–97
--- NOTE | 2020-02-01 16:00 | DI.CT_ITS ---
EXAM: CT CHEST PE CTA CLINICAL HISTORY: R sided chest pain, r/o PE. TECHNIQUE: Imaging Protocol: Axial CT angiography was performed with multi-slice acquisition and mu lti-planar and/or 3D reconstructions. CONTRAST MATERIAL: Intravenous: Omnipaque 350 Contrast volume:58 mL COMPARISON: CT CHEST/ABD/PEL W from 12/29/2019 FINDINGS: Pulmonary Arteries: No evidence of filling defect to suggest pulmonary emboli. Tracheobronchial tree: Patent where visualized. Mediastinum and Michelle: Stable right paratracheal lymph node. Pulmonary parenchyma: Atelectatic changes are seen in the right middle and right lower lobes. Emphys ematous changes are present in the lungs. Noncalcified pulmonary nodule seen in the right upper lobe , probably stable. It may have been obscured by the fluid on the prior examination. Pleura: Large right pleural effusion. It appears slightly increased compared to the prior examinatio n. Heart: The heart is not dilated. Moderate coronary artery calcifications are present. No pericardial effusion. Aorta: Thoracic aorta non-dilated. Atherosclerosis. Upper abdomen: Small hiatal hernia. Bones: Stable destructive lesions of the right 10th rib and transverse process in the right 8th rib. Tubes, Catheters, and Lines: Port-A-Cath in place. IMPRESSION: 1. No evidence of pulmonary embolism, thoracic aortic dissection or aneurysm. 2. Large right pleural effusion which is shown slight increase in size compared to prior examination. 3. Nonspecific 7 mm right upper lobe pulmonary nodule. 4. Stable right paratracheal lymph node. DATA REPOSITORY: All CT scans at this facility are submitted to the National Radiology Data Registry (NRDR) Dose Index Registry (DIR) with the [employer] (ACR). RADIATION OPTIMIZATION: All CT scans at this facility use at least one of these dose optimization te chniques: automated exposure control; mA and/or kV adjustment per patient size (includes targeted exa ms where dose is matched to clinical indication); or iterative reconstruction.
--- NOTE | 2020-02-01 16:10 | W.ED.GENAD ---
Discharge Plan Disposition Patient Disposition: HOME Condition: Stable Discharge Details Chief Complaint: Nausea/Vomit/Diar Clinical Impression: Vomiting, Chronic pleural effusion Primary Care Provider: Maddie Rosenthal ED Provider: Korina Maynard Home Meds and New Rx's Prescriptions: New prochlorperazine maleate [Compazine] 10 mg tablet 10 mg PO TID PRN (Reason: nausea and vomiting) Qty: 7 RF: 0 Continued omeprazole 20 MG capsule,delayed release(DR/EC) 20 mg PO DAILY RF: 0 sennosides [Senna Lax] 8.6 mg tablet 17.2 mg PO QHS RF: 0 metoprolol succinate 25 mg tablet extended release 24 hr 50 mg PO DAILY Qty: 90 RF: 1 fentanyl 25 mcg/hr patch 72 hour 1 patch TD Q72H MDD 25 mcg Qty: 10 RF: 0 prednisone 10 mg tablet 10 mg PO DAILY Qty: 100 RF: 0 oxycodone 5 mg tablet 5 mg PO Q6H MDD 5 mg PRN (Reason: pain) Qty: 30 RF: 0 potassium chloride 20 mEq/15 mL liquid 20 meq PO BID Qty: 1500 RF: 0 Discharge Instructions Instructions: Acute Nausea and Vomiting (ED) Additional Instructions: Take the Compazine as needed and directed for nausea and vomiting. Call your primary care doctor tomorrow to schedule a follow-up appointment for reevaluation and for referral for further evaluation by surgery and consideration for upper endoscopy if your symptoms persist or worsen. Return to the emergency department if you develop any worsening or new concerning symptoms. Referrals: Elsy Mitchell DO [OSTEOPATHIC DOCTOR] - Discharge Data Discharge Physician: Korina Maynard Medical Decision Making 1600 -- 79-year-old female with known history of stage IV lung cancer with metastasis with history of malignant pleural effusion with thoracentesis in November 2019 presents with one episode of vomiting last night and nausea today. She also complains of chronic right-sided chest pain which she states is worse today. Denies known fever or shortness of breath worse than usual. Vitals within normal limits. Diminished breath sounds right side of chest. No crackles, wheezing or rhonchi noted. No lower extremity edema. EKG notes a rate of 93, sinus with no acute ST ischemic changes. Of note EKG notes S1 Q3 T3. Differential diagnosis includes pleural effusion, pneumonia, bronchitis, PE, ACS, arrhythmia. Will check screening labs and CT chest. Will give DuoNeb and reassess. 1749 --patient reassessed -denies any relief of nausea. Still complaining of right-sided chest pain. She is hemodynamically stable. Oxygen saturation 97% on room air. Heart rate 80s. Labs reviewed. Normal white blood cell count. Magnesium 1.2. Troponin negative. 1854 --CT reviewed and unchanged from baseline, notes a stable right-sided pleural effusion and no evidence of PE. Patient was able to take sips of water and harrison urmila and no vomiting. 1929 --patient reassessed -she is still complaining of a bubble in her upper abdomen. She states this has been chronic since she was intubated last year. She states she had been offered an EGD for further evaluation but had declined. Patient states she felt she had difficulty with swallowing liquids but family and nurse observed patient swallowing. She was given a dose of glucagon without any significant subjective difference. Patient states she feels good to go home. We will send home with a prescription for Compazine. Advised to follow-up with the primary care doctor for reevaluation and for consideration for upper endoscopy if symptoms persist. Usual and customary return precautions given prior to discharge. Medical Records Medical records reviewed: Yes I reviewed the patient's medical records. Imaging Data Radiologic Study: Radiologist's impression: CT Angiography Chest With Contrast Exam date and time: 02/01/2020 6:15 PM Age: 79 years old Clinical indication: Other: R sided chest pain, R/O pe TECHNIQUE: Imaging protocol: Computed tomographic angiography of the chest with intravenous contrast. 3D rendering: MIP and/or 3D reconstructed images were created by the technologist. Radiation optimization: All CT scans at this facility use at least one of these dose optimization techniques: automated exposure control; mA and/or kV adjustment per patient size (includes targeted exams where dose is matched to clinical indication); or iterative reconstruction. Contrast material: OMNIPAQUE 350; Contrast volume: 58 ml; Contrast route: IV; COMPARISON: CT CHEST PE ABD PELVIS W 11/18/2019 12:27 PM FINDINGS: Tubes, catheters and devices: Right chest Port-A-Cath. Pulmonary arteries: Pulmonary arteries well opacified bilaterally. No evidence of pulmonary arterial embolism. Aorta: No aneurysmal dilatation. Thyroid: Nonspecific bilateral subcentimeter thyroid low-attenuation foci. Thyroid ultrasound may be warranted for further evaluation. This may be appropriate on a nonemergent basis. thoracic aortic atherosclerotic disease. No significant aneurysmal change. Lungs: Minor right lung base atelectasis. Lateral segment right middle lobe nodule measuring 7 Mm. This is noncalcified. This is nonspecific in appearance and was likely present on the previous study, however, this may have been partially mass by pleural fluid. There are no acute lung infiltrates. There is some mild left basilar atelectatic disease. Pleural space: Moderate size right pleural effusion. This tracks into the oblique fissure and is also seen posteriorly. This was present on a prior study 11/18/2019 and has not changed significantly in appearance. Heart: Unremarkable. No cardiomegaly. No pericardial effusion. Lymph nodes: Right paratracheal lymph node measuring 12.6 cm stable since previous study. Bones/joints: Unremarkable. No acute fracture. Soft tissues: Unremarkable. IMPRESSION: 1. No evidence of pulmonary embolism. 2. Moderate right pleural effusion with components tracking into the oblique fissure. No significant change in size since 11/18/2019. 3. Nonspecific 7 mm nodule lobe.lateral segment right middle lobe. Fleischner follow up recommendations for incidental nodules are not indicated. Follow up per patient's medical condition. 4. Right paratracheal enlarged lymph nodes stable in appearance. 5. Right chest Port-A-Cath. 6. Hiatal hernia. Lab Data Lab results reviewed: Yes I reviewed the patient's lab results. Labs: Laboratory Tests Range/Units 02/01/20 02/01/20 02/01/20 17:10 17:10 17:10 WBC (4.4-10.8) k/cumm RBC (4.00-5.20) m/cumm Hgb (12.0-15.5) g/dL Hct (36.0-46.0) % MCV (80-95) fL MCH (27.0-33.0) pg MCHC (32.0-36.0) g/dL RDW (11.7-14.6) % Plt Count (130-400) x1000/uL MPV (8.0-11.0) fL Immature Gran % % Neutrophils % Lymphocytes % Monocytes % Eosinophils % Basophils % Absolute Neutrophils (1.2-6.7) k/cumm Absolute Lymphocytes (1.2-3.4) k/cumm Absolute Monocytes (0.11-0.7) k/cumm Absolute Eosinophils (0.0-0.7) k/cumm Absolute Basophils (0.0-0.2) k/cumm PT (9.3-11.0) sec 10.9 INR (0.9-1.1) 1.1 APTT (21.0-31.4) sec 33.3 H Sodium (136-145) mmol/L 141 Potassium (3.5-5.1) mmol/L 3.5 Chloride (98-107) mmol/L 103 Carbon Dioxide (21.0-32.0) mmol/L 30.4 Anion Gap (3-11) mmol/L 7.6 BUN (7-18) mg/dL 20 H Creatinine (0.55-1.02) mg/dL 0.66 Estimated GFR/1.73 m2 (mL/min/1.73m2) >= 60.00 Glucose (74-106) mg/dL 92 Calcium (8.5-10.1) mg/dL 8.8 Magnesium (1.8-2.4) mg/dL 1.2 L Total Bilirubin (0.2-1.0) mg/dL 0.7 AST (15-37) U/L 15 ALT (14-59) U/L 14 Alkaline Phosphatase (46-116) U/L 71 Troponin I (<0.06) ng/Ml < 0.05 Total Protein (6.4-8.2) g/dL 5.9 L Albumin (3.4-5.0) g/dL 2.9 L Lipase (73-393) U/L 104 Urine Color (Yellow) Urine Clarity (Clear) Urine pH (5-8) Ur Specific [place] (1.005-1.025) Urine Protein (Negative) mg/dL Urine Ketones (Negative) mg/dL Urine Blood (Negative) Urine Nitrite (Negative) Urine Bilirubin (Negative) Urine Urobilinogen (Up TO 0.2) EU/dL Ur Leukocyte Esterase (Negative) Urine Glucose (Negative) mg/dL Range/Units 02/01/20 02/01/20 17:10 18:35 WBC (4.4-10.8) k/cumm 7.24 RBC (4.00-5.20) m/cumm 4.03 Hgb (12.0-15.5) g/dL 12.4 Hct (36.0-46.0) % 37.1 MCV (80-95) fL 92.1 MCH (27.0-33.0) pg 30.8 MCHC (32.0-36.0) g/dL 33.4 RDW (11.7-14.6) % 13.7 Plt Count (130-400) x1000/uL 187 MPV (8.0-11.0) fL 9.6 Immature Gran % % 0.3 Neutrophils % 81.0 Lymphocytes % 10.1 Monocytes % 8.1 Eosinophils % 0.4 Basophils % 0.1 Absolute Neutrophils (1.2-6.7) k/cumm 5.86 Absolute Lymphocytes (1.2-3.4) k/cumm 0.73 L Absolute Monocytes (0.11-0.7) k/cumm 0.59 Absolute Eosinophils (0.0-0.7) k/cumm 0.03 Absolute Basophils (0.0-0.2) k/cumm 0.01 PT (9.3-11.0) sec INR (0.9-1.1) APTT (21.0-31.4) sec Sodium (136-145) mmol/L Potassium (3.5-5.1) mmol/L Chloride (98-107) mmol/L Carbon Dioxide (21.0-32.0) mmol/L Anion Gap (3-11) mmol/L BUN (7-18) mg/dL Creatinine (0.55-1.02) mg/dL Estimated GFR/1.73 m2 (mL/min/1.73m2) Glucose (74-106) mg/dL Calcium (8.5-10.1) mg/dL Magnesium (1.8-2.4) mg/dL Total Bilirubin (0.2-1.0) mg/dL AST (15-37) U/L ALT (14-59) U/L Alkaline Phosphatase (46-116) U/L Troponin I (<0.06) ng/Ml Total Protein (6.4-8.2) g/dL Albumin (3.4-5.0) g/dL Lipase (73-393) U/L Urine Color (Yellow) Yellow Urine Clarity (Clear) Clear Urine pH (5-8) 7.0 Ur Specific [place] (1.005-1.025) >= 1.030 H Urine Protein (Negative) mg/dL Negative Urine Ketones (Negative) mg/dL 15 H Urine Blood (Negative) Negative Urine Nitrite (Negative) Negative Urine Bilirubin (Negative) Negative Urine Urobilinogen (Up TO 0.2) EU/dL 0.2 Ur Leukocyte Esterase (Negative) Negative Urine Glucose (Negative) mg/dL Negative ECG Data Attestation: I personally reviewed and interpreted this ECG (s) as follows: Interpretation: Rate of 93, sinus. S1 Q3 T3. No acute ST ischemic changes. MO 132. QTc 428. QRS 78. HPI General Mode of arrival: ambulatory. Date/Time Provider Initiated Documentation: 02/01/20 16:20. Limitations to Documentation: no limitations. Information obtained by: patient. HPI Narrative: Patient is a 79-year-old female with a history of stage IV lung cancer with metastasis with history of malignant pleural effusion with thoracentesis in November presents with vomiting since last night. She states she vomited mainly once which consisted of food and now has been spitting up clear phlegm. She admits to nausea and some fatigue now. She also admits to chronic right-sided chest pain but states it has been worse today. She denies any worsening of her chronic shortness of breath. She denies any known fever, diarrhea, abdominal pain, urinary symptoms, headache, dizziness or recent antibiotics. Patient has been undergoing chemotherapy since May. She states her last chemotherapy treatment was 2 weeks ago. Related Data Home Medications Medication Instructions Recorded Confirmed omeprazole 20 mg PO DAILY tab-cap 06/12/16 02/01/20 sennosides 8.6 mg tablet 17.2 mg PO QHS tab 08/26/19 02/01/20 metoprolol succinate 25 mg 50 mg PO DAILY #90 tab 09/15/19 02/01/20 tablet,extended release 24 hr fentanyl 25 mcg/hr transdermal 1 patch TD Q72H #10 each MDD 25 mcg 01/12/20 02/01/20 patch oxycodone 5 mg tablet 5 mg PO Q6H PRN #30 tab MDD 5 mg 01/26/20 02/01/20 prednisone 10 mg tablet 10 mg PO DAILY #100 tab 01/26/20 02/01/20 potassium chloride 20 mEq/15 mL 20 meq PO BID #1500 ml 01/27/20 02/01/20 oral liquid prochlorperazine maleate 10 mg PO TID PRN #7 tab 02/01/20 [Compazine] Previous Rx's Medication Instructions Recorded metoprolol succinate 25 mg 50 mg PO DAILY #90 tab 09/15/19 tablet,extended release 24 hr fentanyl 25 mcg/hr transdermal 1 patch TD Q72H #10 each MDD 25 mcg 01/12/20 patch oxycodone 5 mg tablet 5 mg PO Q6H PRN #30 tab MDD 5 mg 01/26/20 prednisone 10 mg tablet 10 mg PO DAILY #100 tab 01/26/20 potassium chloride 20 mEq/15 mL 20 meq PO BID #1500 ml 01/27/20 oral liquid prochlorperazine maleate 10 mg PO TID PRN #7 tab 02/01/20 [Compazine] Allergies Allergy/AdvReac Type Severity Reaction Status Date / Time No Known Allergies Allergy Verified 02/01/20 15:55 General Stated Complaint: Nausea/Vomit/Diar ROSALBA: 3 Review of Systems All systems reviewed & are unremarkable except as noted in HPI and below Constitutional Constitutional: Reports as per HPI, Denies chills and Denies fever(s) Eyes Eyes: Denies blurry vision ENT Ears, Nose, Mouth, and Throat: Denies dizziness, Denies sore throat and Denies throat swelling Cardiovascular Cardiovascular: Reports chest pain and Denies dyspnea Respiratory Respiratory: Denies cough and Denies dyspnea Gastrointestinal Gastrointestinal: Denies abdominal pain, Denies diarrhea and Reports vomiting Genitourinary Genitourinary: Denies hematuria and Denies dysuria Musculoskeletal Musculoskeletal: Denies back pain and Denies numbness Integumentary/Breasts Skin/Breast: Denies lesions and Denies rash Neurologic Neurologic: Denies dizziness, Denies focal weakness and Denies numbness Allergic/Immunologic Allergic/Immunologic: Denies throat swelling [facility] Medical History (Updated 02/01/20 @ 20:40 by Korina Maynard DO) Basal cell carcinoma, face Cancer of bronchus of right upper lobe (Acute) Metastatic , 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 Cancer related pain (Acute) Dehydration (Acute) Dizziness (Acute) DNI (do not intubate) (Acute) DNR (do not resuscitate) (Acute) Fatigue (Acute) GERD (gastroesophageal reflux disease) Goals of care, counseling/discussion (Acute) Hypokalemia (Acute) Insomnia (Acute) Low serum magnesium level (Acute) Malignant pleural effusion (Chronic) has had thorancentesis x 2 with good results Palliative care patient (Acute) POLST (Physician Orders for Life-Sustaining Treatment) (Acute) Tachycardia (Acute) Unintentional weight loss (Acute) Surgical History History of abdominal hysterectomy (Acute) History of appendectomy (Chronic) History of bladder suspension procedure (Acute) History of cholecystectomy (Chronic) History of lumbar discectomy (Acute) History of umbilical hernia repair (Acute) Port-A-Cath in place (Acute ~08/28/19) Status post biopsy of thyroid gland (Acute) Social History Smoking/Tobacco Use Status: Former Tobacco Use Quit Date: 11/25/99 Tobacco: How many years used: 30 Alcohol Intake: never Drug use: Never Substance use type: does not use Details: synthetic antiemetic RX Caregiver/Support person: No Household members: none Housing: house Number of Children: 3 Communication Needs: Hard of Hearing Education Level: high school Do you need help understanding health information?: Rarely current occupation: Retired; worked for [employer], worked for [employer] shop Pets and animals: Yes Pets and animals: cat(s) and dog(s) Sexually active: No Do you think of yourself as: straight/heterosexual Current gender identity: female What is your relationship status?: How often do you talk on the phone with friends or family?: three or more times per week How often do you get together with friends or relatives?: three or more times per week Do you belong to any clubs or organized social groups?: no Panel score (0-1 are the most socially isolated patients): 1 What type of physical activity do you participate in: none and sedentary lifestyle Special eliane needs: No Seatbelt use: always Drive intox or ride w/intox guard driver: No Water heater temp set <120 deg: Yes Working smoke detector in home: Yes Fire extinguisher in home: Yes Carbon monox detector in home: Yes Firearms in home: No Do you feel safe at home: Yes Do you feel safe in your relationship?: Yes Additional Social history: Lives alone. Daughter Carmelina and son-in-law Ed very involved in her life. Ed goes to most apts with Veena. Veena's from cancer after 1 day on hospice. She reports My cancer is incurable, but it is treatable. Usually volunteers at [facility]. Not strong enough. Exam Const General: cooperative, no acute distress and ill appearing chronically Orientation: alert, awake and oriented x3 HENMT Head: normal to inspection Face and sinus: normal facial exam Eyes General: appearance normal, both eyes and all related structures Neck Neck: normal visual inspection and No submandibular swelling Lymphatic: no lymphadenopathy noted Chest Chest: normal inspection of the chest and no tenderness Resp Effort & Inspection: normal respiratory effort and able to speak in complete sentences Auscultation: diminished lung sounds (Right) on the right throughout Cardio Rate: regular rate Rhythm: regular rhythm GI Inspection: normal to inspection Palpation: soft, not firm, not rigid and nontender Auscultation: normal bowel sounds Skin General skin exam: no rashes or lesions noted Neuro General: alert, awake and oriented x3 Cognition: normal cognition Speech: speech normal Motor: muscle tone normal throughout Sensory Exam: no sensory deficits noted Extrem General: normal to inspection, full ROM, normal capillary refill, no calf tenderness bilaterally and no edema Psych Appearance: grossly normal Mental Status: mental status grossly normal Speech and Movement: speech and movement normal Affect: normal affect Course Vital Signs Vital signs: Vital Signs Temperature 98.2 F 02/01/20 15:50 Pulse 92 H 02/01/20 15:50 Respiratory Rate 20 02/01/20 15:50 Blood Pressure 132/83 02/01/20 15:50 Pulse Oximetry 96 02/01/20 15:50 Temperature 98.2 F 02/01/20 15:50 Temperature Source Temporal Artery Scan 02/01/20 15:50 Pulse 92 H 02/01/20 15:50 Respiratory Rate 20 02/01/20 15:50 Respiratory Effort Non-Labored 02/01/20 15:53 Blood Pressure 132/83 02/01/20 15:50 Blood Pressure Position Sitting 02/01/20 15:50 Pulse Oximetry 96 02/01/20 15:50 Oxygen Delivery Method Room Air 02/01/20 15:50 Oxygen Flow Rate 0 02/01/20 15:50 Pain Level 0 02/01/20 15:50
[2020-02-01] MEDS: Albuterol/Ipratropium 3 ML UPD VIAL UPD (16:51)
[2020-02-01] MEDS: Normal Saline 1,000 ML 1000 ML IV (17:18)
[2020-02-01 17:21] LABS: Abs Immature Grans 0.02 k/cumm (0.0-0.09); Absolute Basophil Count 0.01 k/cumm (0.0-0.2); Absolute Eosinophil Count 0.03 k/cumm (0.0-0.7); Absolute Lymphocyte Count 0.73 k/cumm (1.2-3.4); Absolute Monocyte Count 0.59 k/cumm (0.11-0.7); Absolute Neutrophil Count 5.86 k/cumm (1.2-6.7); Basophils % 0.1; Eosinophils % 0.4; HCT 37.1 % (36.0-46.0); HGB 12.4 g/dL (12.0-15.5); Immature Grans % 0.3 %; Lymphocytes % 10.1; Mean Corp. HGB Concentration 33.4 g/dL (32.0-36.0); Mean Corpuscular Hemoglobin 30.8 pg (27.0-33.0); Mean Corpuscular Volume 92.1 fL (80-95); Mean Platelet Volume 9.6 fL (8.0-11.0); Monocytes % 8.1; Platelet Count 187 x1000/uL (130-400); RBC 4.03 m/cumm (4.00-5.20); RBC Distribution Width 13.7 % (11.7-14.6); White Blood Cell Count 7.24 k/cumm (4.4-10.8)
[2020-02-01 17:32] LABS: Lipase 104 U/L (73-393); Magnesium 1.2 mg/dL (1.8-2.4)
[2020-02-01 17:34] LABS: INR 1.1 (0.9-1.1); PTT Activated 33.3 sec (21.0-31.4); Prothrombin Time 10.9 sec (9.3-11.0)
[2020-02-01 17:38] LABS: ALT 14 U/L (14-59); AST 15 U/L (15-37); Albumin 2.9 g/dL (3.4-5.0); Alkaline Phosphatase 71 U/L (46-116); Anion Gap 7.6 mmol/L (3-11); BUN 20 mg/dL (7-18); Bilirubin, Total 0.7 mg/dL (0.2-1.0); CO2 30.4 mmol/L (21.0-32.0); CREATININE 0.66 mg/dL (0.55-1.02); Calcium 8.8 mg/dL (8.5-10.1); Chloride 103 mmol/L (98-107); Glucose 92 mg/dL (74-106); Potassium 3.5 mmol/L (3.5-5.1); Sodium 141 mmol/L (136-145); Total Protein 5.9 g/dL (6.4-8.2)
[2020-02-01 17:51] LABS: Troponin I < 0.05 ng/Ml (<0.06)
[2020-02-01] MEDS: Omnipaque 350 MG/ML 100 ML BTL IJ (18:33)
[2020-02-01] MEDS: Normal Saline Flush 10 ML SYR IVP (18:40)
[2020-02-01 18:48] LABS: Bilirubin Negative (Negative); Blood Negative (Negative); Clarity Clear (Clear); Glucose Negative (Negative); Ketones 15 mg/dL (Negative); Leukocyte Esterase Negative (Negative); Nitrite Negative (Negative); Specific Gravity >= 1.030 (1.005-1.025); Urobilinogen 0.2 EU/dL (Up TO 0.2)
--- NOTE | 2020-02-01 18:49 | DI.VRAD_ITS ---
PROCEDURE INFORMATION: Exam: CT Angiography Chest With Contrast Exam date and time: 02/01/2020 6:15 PM Age: 79 years old Clinical indication: Other: R sided chest pain, R/O pe TECHNIQUE: Imaging protocol: Computed tomographic angiography of the chest with intravenous contrast. 3D rendering: MIP and/or 3D reconstructed images were created by the technologist. Radiation optimization: All CT scans at this facility use at least one of these dose optimization techniques: automated exposure control; mA and/or kV adjustment per patient size (includes targeted exams where dose is matched to clinical indication); or iterative reconstruction. Contrast material: OMNIPAQUE 350; Contrast volume: 58 ml; Contrast route: IV; COMPARISON: CT CHEST PE ABD PELVIS W 11/18/2019 12:27 PM FINDINGS: Tubes, catheters and devices: Right chest Port-A-Cath. Pulmonary arteries: Pulmonary arteries well opacified bilaterally. No evidence of pulmonary arterial embolism. Aorta: No aneurysmal dilatation. Thyroid: Nonspecific bilateral subcentimeter thyroid low-attenuation foci. Thyroid ultrasound may be warranted for further evaluation. This may be appropriate on a nonemergent basis. thoracic aortic atherosclerotic disease. No significant aneurysmal change. Lungs: Minor right lung base atelectasis. Lateral segment right middle lobe nodule measuring 7 Mm. This is noncalcified. This is nonspecific in appearance and was likely present on the previous study, however, this may have been partially mass by pleural fluid. There are no acute lung infiltrates. There is some mild left basilar atelectatic disease. Pleural space: Moderate size right pleural effusion. This tracks into the oblique fissure and is also seen posteriorly. This was present on a prior study 11/18/2019 and has not changed significantly in appearance. Heart: Unremarkable. No cardiomegaly. No pericardial effusion. Lymph nodes: Right paratracheal lymph node measuring 12.6 cm stable since previous study. Bones/joints: Unremarkable. No acute fracture. Soft tissues: Unremarkable. IMPRESSION: 1. No evidence of pulmonary embolism. 2. Moderate right pleural effusion with components tracking into the oblique fissure. No significant change in size since 11/18/2019. 3. Nonspecific 7 mm nodule lobe.lateral segment right middle lobe. Fleischner follow up recommendations for incidental nodules are not indicated. Follow up per patient's medical condition. 4. Right paratracheal enlarged lymph nodes stable in appearance. 5. Right chest Port-A-Cath. 6. Hiatal hernia. Dictated and Authenticated by: Christofer Hawthorne MD. Ordering:CARMEN Hui MD
[2020-02-01] MEDS: MAGNESIUM SULFATE 2 GM/50 ML BAG IVPB (18:56)
[2020-02-01] MEDS: Prochlorperazine 10 MG/2 ML VIAL IVP (18:57)
--- NOTE | 2020-02-01 19:14 | NUR.NOTE ---
Nursing Note: pt attempted both water and harrison urmila both thimes pt reported a gurgle sensation. No emesis after liquids., Pt unable/willing to eat crackers.
[2020-02-01] MEDS: Glucagon 1 MG VIAL IV (19:55)
[2020-02-01] MEDS: Prochlorperazine 10 MG TAB 30 MG PO (20:49)
== END 2020-02-01 20:55 | disposition home or self-care (01) ==
PROVIDERS: Emergency Provider Physician Assistant; PCP Nurse Practitioner
DX: R11.2 Nausea with vomiting, unspecified (principal); R07.9 Chest pain, unspecified; G89.29 Other chronic pain; E83.42 Hypomagnesemia; C34.11 Malignant neoplasm of upper lobe, right bronchus or lung; J91.0 Malignant pleural effusion; Z79.899 Other long term (current) drug therapy; Z95.828 Presence of other vascular implants and grafts
CPT/HCPCS: 36591; 71275; 80053; 83690; 93005; 94640; 96361; 96365; 96366; 96375; 99285; 81003; 83735; 84484; 85025; 85610; 85730; 93010; J0780; J1610; J3490; J7620

== ENCOUNTER → 2020-02-03 10:54 | Outpatient (BNVA) | payer MEDICARE, BC, SELFPAY | PROVIDERS: PCP Nurse Practitioner; Referring Provider Nurse Practitioner; Visit Provider Surgery | DX: R13.19 Other dysphagia (principal); R11.10 Vomiting, unspecified; G89.3 Neoplasm related pain (acute) (chronic); R07.81 Pleurodynia; J91.0 Malignant pleural effusion | CPT/HCPCS: 99212; 99213 ==

== ENCOUNTER 2020-02-18 01:25 | Outpatient (RCR) | payer MEDICARE, BC, SELFPAY ==
[2020-02-11] MEDS: Normal Saline Flush 10 ML SYR IVP (09:16)
[2020-02-11 09:29] LABS: Abs Immature Grans 0.02 k/cumm (0.0-0.09); Absolute Basophil Count 0.01 k/cumm (0.0-0.2); Absolute Eosinophil Count 0.03 k/cumm (0.0-0.7); Absolute Lymphocyte Count 0.61 k/cumm (1.2-3.4); Absolute Monocyte Count 0.51 k/cumm (0.11-0.7); Absolute Neutrophil Count 8.69 k/cumm (1.2-6.7); Basophils % 0.1; Eosinophils % 0.3; HCT 38.9 % (36.0-46.0); Immature Grans % 0.2 %; Lymphocytes % 6.2; Mean Corp. HGB Concentration 33.4 g/dL (32.0-36.0); Mean Corpuscular Hemoglobin 30.6 pg (27.0-33.0); Mean Corpuscular Volume 91.5 fL (80-95); Mean Platelet Volume 9.8 fL (8.0-11.0); Monocytes % 5.2; Platelet Count 253 x1000/uL (130-400); RBC 4.25 m/cumm (4.00-5.20); RBC Distribution Width 13.3 % (11.7-14.6); White Blood Cell Count 9.87 k/cumm (4.4-10.8)
[2020-02-11 09:51] LABS: ALT 15 U/L (14-59); AST 13 U/L (15-37); Albumin 3.1 g/dL (3.4-5.0); Alkaline Phosphatase 77 U/L (46-116); Anion Gap 8.2 mmol/L (3-11); BUN 21 mg/dL (7-18); Bilirubin, Total 0.9 mg/dL (0.2-1.0); CO2 28.8 mmol/L (21.0-32.0); CREATININE 0.88 mg/dL (0.55-1.02); Calcium 9.2 mg/dL (8.5-10.1); Chloride 101 mmol/L (98-107); FREE T4 1.52 ng/dL (0.76-1.46); Glucose 93 mg/dL (74-106); LDH 137 U/L (81-234); Potassium 3.4 mmol/L (3.5-5.1); Sodium 138 mmol/L (136-145); TSH 1.55 uIU/mL (0.36-3.74); Total Protein 6.4 g/dL (6.4-8.2)
[2020-02-18 12:37] LABS: Abs Immature Grans 0.01 k/cumm (0.0-0.09); Absolute Basophil Count 0.01 k/cumm (0.0-0.2); Absolute Eosinophil Count 0.01 k/cumm (0.0-0.7); Absolute Monocyte Count 0.25 k/cumm (0.11-0.7); Absolute Neutrophil Count 7.52 k/cumm (1.2-6.7); Basophils % 0.1; Eosinophils % 0.1; HCT 37.2 % (36.0-46.0); HGB 12.6 g/dL (12.0-15.5); Immature Grans % 0.1 %; Lymphocytes % 4.9; Mean Corp. HGB Concentration 33.9 g/dL (32.0-36.0); Mean Corpuscular Hemoglobin 30.9 pg (27.0-33.0); Mean Corpuscular Volume 91.2 fL (80-95); Mean Platelet Volume 9.7 fL (8.0-11.0); Neutrophils % 91.8; Platelet Count 239 x1000/uL (130-400); RBC 4.08 m/cumm (4.00-5.20)
[2020-02-18] MEDS: Normal Saline Flush 10 ML SYR IVP (12:50)
[2020-02-18 12:56] LABS: ALT 14 U/L (14-59); AST 14 U/L (15-37); Albumin 2.9 g/dL (3.4-5.0); Alkaline Phosphatase 83 U/L (46-116); Anion Gap 10.2 mmol/L (3-11); BUN 19 mg/dL (7-18); Bilirubin, Total 0.4 mg/dL (0.2-1.0); CO2 26.8 mmol/L (21.0-32.0); Calcium 9.4 mg/dL (8.5-10.1); Chloride 100 mmol/L (98-107); Estimated GFR 53.48 (mL/min/1.73m2); FREE T4 1.41 ng/dL (0.76-1.46); Glucose 128 mg/dL (74-106); LDH 139 U/L (81-234); Potassium 4.2 mmol/L (3.5-5.1); Sodium 137 mmol/L (136-145); TSH 0.79 uIU/mL (0.36-3.74); Total Protein 6.4 g/dL (6.4-8.2)
== END 2020-02-23 23:59 | disposition home or self-care (01) ==
LOC: INF 01:25
PROVIDERS: PCP Nurse Practitioner; Visit Provider Internal Medicine Hematology & Oncology
DX: C34.91 Malignant neoplasm of unspecified part of right bronchus or lung (principal); Z45.2 Encounter for adjustment and management of vascular access device
CPT/HCPCS: 36591; 80053; 83615; 83735; 84439; 84443; 85025

== ENCOUNTER 2020-03-10 01:39 | Outpatient (RCR) | payer MEDICARE, BC, SELFPAY ==
[2020-03-10] MEDS: Normal Saline Flush 10 ML SYR IVP (10:42)
[2020-03-10 10:53] LABS: Abs Immature Grans 0.02 k/cumm (0.0-0.09); Absolute Basophil Count 0.01 k/cumm (0.0-0.2); Absolute Eosinophil Count 0.02 k/cumm (0.0-0.7); Absolute Lymphocyte Count 0.46 k/cumm (1.2-3.4); Absolute Monocyte Count 0.39 k/cumm (0.11-0.7); Absolute Neutrophil Count 7.59 k/cumm (1.2-6.7); Basophils % 0.1; Eosinophils % 0.2; HCT 37.7 % (36.0-46.0); HGB 12.7 g/dL (12.0-15.5); Immature Grans % 0.2 %; Lymphocytes % 5.4; Mean Corp. HGB Concentration 33.7 g/dL (32.0-36.0); Mean Corpuscular Hemoglobin 30.7 pg (27.0-33.0); Mean Corpuscular Volume 91.1 fL (80-95); Mean Platelet Volume 9.6 fL (8.0-11.0); Monocytes % 4.6; Neutrophils % 89.5; Platelet Count 247 x1000/uL (130-400); RBC 4.14 m/cumm (4.00-5.20); RBC Distribution Width 13.4 % (11.7-14.6); White Blood Cell Count 8.49 k/cumm (4.4-10.8)
[2020-03-10 11:09] LABS: ALT 14 U/L (14-59); AST 14 U/L (15-37); Albumin 2.7 g/dL (3.4-5.0); Alkaline Phosphatase 86 U/L (46-116); Anion Gap 10.1 mmol/L (3-11); BUN 17 mg/dL (7-18); Bilirubin, Total 0.5 mg/dL (0.2-1.0); CO2 26.9 mmol/L (21.0-32.0); CREATININE 1.16 mg/dL (0.55-1.02); Calcium 8.8 mg/dL (8.5-10.1); Chloride 100 mmol/L (98-107); Estimated GFR 45.07 (mL/min/1.73m2); Glucose 118 mg/dL (74-106); Magnesium 1.2 mg/dL (1.8-2.4); Potassium 3.3 mmol/L (3.5-5.1); Sodium 137 mmol/L (136-145); TSH 0.83 uIU/mL (0.36-3.74); Total Protein 6.2 g/dL (6.4-8.2)
[2020-03-10 11:19] LABS: T4 9.3 ug/mL (4.7-13.3)
== END 2020-03-24 23:59 | disposition home or self-care (01) ==
LOC: INF 01:39
PROVIDERS: PCP Nurse Practitioner; Visit Provider Internal Medicine Hematology & Oncology
DX: C34.91 Malignant neoplasm of unspecified part of right bronchus or lung (principal); Z45.2 Encounter for adjustment and management of vascular access device
CPT/HCPCS: 36591; 80053; 83735; 84436; 84443; 85025

== ENCOUNTER 2020-03-12 22:11 | Emergency (ER) | payer MEDICARE, BC, SELFPAY ==
[2020-03-12 22:29] VITALS: BP 135/64; PULSE 88; RESP 22; TEMP 37.5; O2SAT 96
--- NOTE | 2020-03-12 22:30 | DI.CT_ITS ---
EXAM: CT ABDOMEN PELVIS W CLINICAL HISTORY: generalized central abdominal pain, known cancer COMPARISON: CT CHEST/ABD/PEL W from 12/29/2019 CT CHEST PE CTA from 02/01/2020 FINDINGS: CT examination of the abdomen and pelvis was performed with a bolus infusion of 70 cc of Omnipaque 3 50. Patient reportedly has a history of known metastatic carcinoma. Examination is compared with pr ior study of 12/29/19. Note is again made of previously described right 8th and 10th rib and vertebr al lesions, increased in size from prior study. Large loculated right pleural effusion and small lef t pleural effusion noted, increased in size from prior study. There are multiple hepatic lesions, increased in size and number from the prior study, largest lesion about 26 millimeters in diameter in right hepatic lobe. Spleen is unremarkable. No significant carrie iary dilatation. Adrenals are unremarkable in appearance. New left hydronephrosis and hydroureter t o the level of the distal ureter Increased retroperitoneal and presumed omental radiodensities in comparison with the previous examina tion. 28 millimeter in diameter abdominal aortic aneurysm noted, no acute change. No evidence of bowel obstruction. IMPRESSION: Evidence of increased metastatic lesions: Increased size of right posterior chest wall rib/vertebral lesions Increased number and size of multiple hepatic metastatic lesions. Increased omental and retroperitoneal metastases. New left ureteral obstruction at the level of the pelvis, presumably secondary to metastatic disease.
[2020-03-12] MEDS: Normal Saline-STERILE FIELD 0.9% 10 ML SYR (23:05)
[2020-03-12 23:26] LABS: Abs Immature Grans 0.01 k/cumm (0.0-0.09); Absolute Eosinophil Count 0.02 k/cumm (0.0-0.7); Absolute Lymphocyte Count 0.72 k/cumm (1.2-3.4); Absolute Monocyte Count 0.59 k/cumm (0.11-0.7); Eosinophils % 0.3; HCT 34.3 % (36.0-46.0); HGB 11.6 g/dL (12.0-15.5); Immature Grans % 0.2 %; Lymphocytes % 10.8; Mean Corp. HGB Concentration 33.8 g/dL (32.0-36.0); Mean Corpuscular Hemoglobin 30.4 pg (27.0-33.0); Mean Platelet Volume 9.4 fL (8.0-11.0); Monocytes % 8.9; Neutrophils % 79.8; Platelet Count 211 x1000/uL (130-400); RBC 3.81 m/cumm (4.00-5.20); RBC Distribution Width 13.2 % (11.7-14.6); White Blood Cell Count 6.64 k/cumm (4.4-10.8)
--- NOTE | 2020-03-12 23:26 | ED.GENADUL_ITS ---
Discharge Plan Disposition Patient Disposition: HOME Condition: Good Discharge Details Chief Complaint: Abd Prob Clinical Impression: Abdominal pain, AAA (abdominal aortic aneurysm) without rupture, Metastatic cancer Primary Care Provider: Maddie Rosenthal ED Provider: Brian Baig Home Meds and New Rx's Prescriptions: Continued omeprazole 20 MG capsule,delayed release(DR/EC) 20 mg PO DAILY RF: 0 metoprolol succinate 25 mg tablet extended release 24 hr 50 mg PO DAILY Qty: 90 RF: 1 prednisone 10 mg tablet 10 mg PO DAILY Qty: 100 RF: 0 potassium chloride 20 mEq/15 mL liquid 20 meq PO BID Qty: 1500 RF: 0 polyethylene glycol 3350 [Miralax] 17 gram/dose powder 17 gm PO DAILY RF: 0 oxycodone 5 mg tablet 5 mg PO Q6H MDD 20 mg PRN (Reason: pain) Qty: 30 RF: 0 guaifenesin 200 mg/5 mL liquid 200 mg PO Q4H PRN (Reason: cough) Qty: 473 RF: 2 fentanyl 37.5 mcg/hour patch 72 hour 1 patch TD Q72H MDD 37.5 mcg Qty: 10 RF: 0 Discharge Instructions Instructions: Abdominal Pain (ED) Additional Instructions: At this time the CT imaging shows no evidence of significant abnormality in the abdomen. You do have a large pleural effusion around your lungs secondary to your cancer. Your abdominal pain may have been from a mild stomach ulcer, or an intestinal spasm. Please take the pain medication only as needed. Please drink plenty of fluids at home, avoid any spicy or tomato-based foods for the next few days to let your stomach rest. You can use Maalox to help with stomach irritation as needed. If you notice any worsening of your symptoms, or any new symptoms such as vomiting, diarrhea, fever, chills, shortness of breath, chest pain, numbness, weakness, or fainting , please return immediately to the emergency department for reevaluation. Please follow up with your primary care provider as soon as possible for reassessment and reevaluation. As always, it was a pleasure participating in your medical care today. Referrals: Maddie Rosenthal, IMPLEMENTATION PROJECT MANAGER [Primary Care Provider] - Medical Decision Making This is 79-year-old female with a past medical history of lung cancer, GERD, hysterectomy, appendectomy, cholecystectomy, who presents today for abdominal pain. Patient states that at 9 PM she developed relatively sudden onset sharp achy abdominal pain, is central in nature, radiates from the left to the right. She has had no associated nausea vomiting or diarrhea. Pain comes and goes in severity but is always present. She denies any numbness tingling or weakness. She did have [employer] tonight for dinner, and states this is fairly normal for her. She denies any other complaints at this time. She is currently on chemotherapy. No other modifying factors. She denies any aggravating or relieving factors. Physical exam demonstrates mild supraumbilical tenderness, mild epigastric tenderness. No distention. Differential is broad, cardiac etiology certainly unlikely, but we will do screening EKG and troponin. Pancreatitis, gastric ulcer, or other acute abdominal pathology is also likely. Will get CT scan for further assessment, treat her pain. Gently rehydrate. 1:17 AM Laboratory work-up is returned notably unremarkable, no white count, hemoglobin stable, no bandemia or left shift. Electrolytes normal renal function stable, no transaminitis. Troponin normal, EKG benign, lipase normal. Albumin slightly low at 2.6, urinalysis shows no evidence of infectious etiology. Symptoms n otably improved with morphine and Dilaudid. Patient's son does state that patient is currently on palliative care. Pending CT scan results at this time. This time patient appears notably clinically stable, and shows no signs of acute distress. 1:[address] scan results have returned, patient definitely demonstrates progression of her metastatic disease, she has a stable abdominal aortic aneurysm. No signs of an acute pathology in the abdomen at this time requiring surgical intervention. Patient's pain is resolved, she is requesting to go home. This time patient's pain may have been from mild gastritis or gastric ulcer, or component secondary to her malignancy. She does have a notable pleural effusion, slightly worsening, oxygen is stable. Respecting patient's wishes she will be discharged home. Discussed the entire case with the patient's son. We will give extra narcotics for home use as needed for pain control. If you notice any worsening of your symptoms, or any new symptoms such as vomiting, diarrhea, fever, chills, shortness of breath, chest pain, numbness, weakness, or fainting , please return immediately to the emergency department for reevaluation. Please follow up with your primary care provider as soon as possible for reassessment and reevaluation. As always, it was a pleasure participating in your medical care today. EKG 22: 48 Rate 83, intervals normal, sinus rhythm, no significant ST elevations or depressions, there is an inverted T wave in V1, no evidence of STEMI. No significant Q waves. FINDINGS: Pleural space: There is a large loculated right pleural effusion which was present on the prior study . Probable metastatic disease along the right hemidiaphragm. Mediastinum: Stable soft tissue in the anterior mediastinum. Mild mediastinal ad enopathy, partially visualized. Liver: There are innumerable lesions throughout the liver, increased in size and number from prior study. Largest in the right lobe measures 2.1 cm. Gallbladder and bile ducts: Prior cholecystectomy. Pancreas: Unremarkable. Spleen: Unremarkable. Adrenals: Unremarkable. Kidneys and ureters: There is moderate left hydronephrosis and hydroureter, not present on the prior study. Delayed excretion of contrast from the left kidney. The left ureter is dilated down to the pelvis. There is soft tissue abnormality seen along the distal ureter at the level of the femoral head. The ureter distal to this is collapsed. Stomach and bowel: No bowel obstruction. There is colonic diverticulosis. Stable wall thickening in the sigmoid colon which may be chronic. No definite evidence of acute diverticulitis. There is evidence of pelvic floor relaxation. Soft tissue prominence in the distal rectal and vaginal regions is similar to prior study and of unclear etiology Appendix: The appendix is not identified. No secondary evidence of appendicitis. Intraperitoneal space: Trace free fluid. No free air. Vasculature: There are coronary artery calcifications. Stable 2.8 cm infrarenal aortic aneurysm. No evidence of aneurysm rupture. There are atherosclerotic calcifications of the aorta. Lymph nodes: Abnormal soft tissue is seen in the periaortic, pericaval and right retrocrural regions of the upper abdomen, slightly increased from the prior study. There are multiple peritoneal and omental soft tissue nodules, increased from prior. Largest in the anterior pelvis measures 1.0 cm. Bladder: Unremarkable as visualized. Reproductive: Prior hysterectomy. Bones/joints: There is a 6.7 x 4.4 cm soft tissue mass in the right posterior chest wall which has increased in size and invades the right side of the T10 vertebral body and posterior elements. Destruction of the posterior right 10th rib. Destructive lesion in the right posterior 8th rib and adjacent transverse process. Soft tissues: Stable lobulated soft tissue within the subcutaneous fat the anterior pelvic wall. IMPRESSION: 1. Findings consistent with progression of metastatic disease. There are increased liver lesions, increased retroperitoneal soft tissue and and increased omental/peritoneal metastases. 2. Moderate left hydroureteronephrosis with soft tissue abnormality in the distal left ureter. This may be due to metastatic disease versus less likely a primary ureter abnormality. 3. Large loculated right pleural effusion. There is worsening metastatic disease of the right posterior chest wall, with bony invasion of the lower thoracic spine. 4. Coronary artery calcifications. 5. Stable appearance of abdominal aortic aneurysm. 6. Additional incidental/non-emergent findings, as above. HPI General Date/Time Provider Initiated Documentation: 03/12/20 22:29 . HPI Narrative: This is 79-year-old female with a past medical history of lung cancer, GERD, hysterectomy, appendectomy, cholecystectomy, who presents today for abdominal pain. Patient states that at 9 PM she developed relatively sudden onset sharp achy abdominal pain, is central in nature, radiates from the left to the right. She has had no associated nausea vomiting or diarrhea. Pain comes and goes in severity but is always present. She denies any numbness tingling or weakness. She did have [employer] tonight for dinner, and states this is fairly normal for her. She denies any other complaints at this time. She is currently on chemotherapy. No other modifying factors. She denies any aggravating or relieving factors. Related Data Home Medications Medication Instructions Recorded Confirmed omeprazole 20 mg PO DAILY tab-cap 06/12/16 03/12/20 metoprolol succinate 25 mg 50 mg PO DAILY #90 tab 09/15/19 03/12/20 tablet,extended release 24 hr prednisone 10 mg tablet 10 mg PO DAILY #100 tab 01/26/20 03/12/20 potassium chloride 20 mEq/15 mL 20 meq PO BID #1500 ml 01/27/20 03/12/20 oral liquid polyethylene glycol 3350 17 17 gm PO DAILY 02/19/20 03/12/20 gram/dose oral powder oxycodone 5 mg tablet 5 mg PO Q6H PRN #30 tab MDD 20 mg 02/24/20 03/12/20 guaifenesin 200 mg/5 mL oral liquid 200 mg PO Q4H PRN #473 ml 02/25/20 03/12/20 fentanyl 37.5 mcg/hour transdermal 1 patch TD Q72H #10 each MDD 37.5 03/03/20 03/12/20 patch mcg Previous Rx's Medication Instructions Recorded metoprolol succinate 25 mg 50 mg PO DAILY #90 tab 09/15/19 tablet,extended release 24 hr prednisone 10 mg tablet 10 mg PO DAILY #100 tab 01/26/20 potassium chloride 20 mEq/15 mL 20 meq PO BID #1500 ml 01/27/20 oral liquid oxycodone 5 mg tablet 5 mg PO Q6H PRN #30 tab MDD 20 mg 02/24/20 guaifenesin 200 mg/5 mL oral liquid 200 mg PO Q4H PRN #473 ml 02/25/20 fentanyl 37.5 mcg/hour transdermal 1 patch TD Q72H #10 each MDD 37.5 03/03/20 patch mcg Allergies Allergy/AdvReac Type Severity Reaction Status Date / Time No Known Allergies Allergy Verified 02/01/20 15:55 General Stated Complaint: Abd Prob ROSALBA: 3 Review of Systems All systems reviewed & are unremarkable except as noted in HPI and below PFSH Social History Smoking/Tobacco Use Status: Former Tobacco Use Quit Date: 11/25/99 Tobacco: How many years used: 30 Alcohol Intake: never Drug use: Never Substance use type: does not use Details: synthetic antiemetic RX Caregiver/Support person: No Household members: none Housing: house Number of Children: 3 Communication Needs: Hard of Hearing Education Level: high school Do you need help understanding health information?: Rarely current occupation: Retired; worked for [employer], worked for [employer] shop Pets and animals: Yes Pets and animals: cat(s) and dog(s) Sexually active: No Do you think of yourself as: straight/heterosexual Current gender identity: female What is your relationship status?: How often do you talk on the phone with friends or family?: three or more times per week How often do you get together with friends or relatives?: three or more times per week Do you belong to any clubs or organized social groups?: no Panel score (0-1 are the most socially isolated patients): 1 What type of physical activity do you participate in: none and sedentary lifestyle Special eliane needs: No Seatbelt use: always Drive intox or ride w/intox jeep driver: No Water heater temp set <120 deg: Yes Working smoke detector in home: Yes Fire extinguisher in home: Yes Carbon monox detector in home: Yes Firearms in home: No Do you feel safe at home: Yes Do you feel safe in your relationship?: Yes Additional Social history: Lives alone. Daughter Carmelina and son-in-law Ed very involved in her life. Ed goes to most [facility] apts with Veean. Veena's from cancer after 1 day on hospice. She reports My cancer is incurable, but it is treatable. 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 Exam Narrative Exam Narrative: 1.Const: Well-nourished, Well-developed, appearing stated age 2.Eyes: PERRL, no conjunctival injection, and symmetrical lids. 3.ENT: Atraumatic external nose and ears. Dry MM. Neck: Symmetric, trachea midline, No thyromegaly. 4.CVS: +S1/S2, No murmurs or gallops. Peripheral pulses 2+ and equal in all extremities. Brisk capillary refill in all extremities. 5.RESP: Unlabored respiratory effort. Clear to auscultation bilaterally. No wheezes rales or rhonchi 6.GI: Soft, nondistended, mild pain tenderness throughout, primarily in the supra umbilical region. No pain at McBurney's point, negative Plasencia sign. 7.MSK: Normocephalic/Atraumatic, Extremities w/o deformity or ttp No cyanosis or clubbing, Normal movement of all extremities 8.Skin: Warm, Dry. No rashes or lesions. 9.Neuro: product support representative II-XII grossly intact. Sensation grossly intact, no focal neurologic deficits. 10.Psych: (AAO) x3. Appropriate mood and affect Course Vital Signs Vital signs: Vital Signs Temperature 37.5 C 03/12/20 22:29 Pulse 88 03/12/20 22:29 Respiratory Rate 22 03/12/20 22:29 Blood Pressure 135/64 03/12/20 22:29 Pulse Oximetry 96 03/12/20 22:29 Temperature 37.5 C 03/12/20 22:29 Temperature Source Skin 03/12/20 22:29 Pulse 88 03/12/20 22:29 Respiratory Rate 22 03/12/20 22:29 Respiratory Effort 03/12/20 22:29 Blood Pressure 135/64 03/12/20 22:29 Pulse Oximetry 96 03/12/20 22:29 Oxygen Delivery Method Room Air 03/12/20 22:29 Oxygen Flow Rate 0 03/12/20 22:29 Pain Level 6 03/12/20 22:29
[2020-03-12 23:27] LABS: Lactate 1.2 mmol/L (0.6-1.4)
[2020-03-12] MEDS: Normal Saline 1,000 ML 1000 ML IV (23:27)
[2020-03-12 23:45] LABS: INR 1.1 (0.9-1.1); PTT Activated 55.1 sec (21.0-31.4); Prothrombin Time 10.8 sec (9.3-11.0)
[2020-03-12 23:51] VITALS: BP 121/57; PULSE 78; PULSE 79; RESP 15; O2SAT 95
[2020-03-12 23:52] VITALS: PULSE 80; RESP 15; O2SAT 95
[2020-03-12 23:52] LABS: ALT 12 U/L (14-59); AST 13 U/L (15-37); Albumin 2.6 g/dL (3.4-5.0); Alkaline Phosphatase 87 U/L (46-116); Anion Gap 7.9 mmol/L (3-11); BUN 16 mg/dL (7-18); Bilirubin, Total 0.4 mg/dL (0.2-1.0); CO2 28.1 mmol/L (21.0-32.0); CREATININE 0.93 mg/dL (0.55-1.02); Calcium 8.7 mg/dL (8.5-10.1); Chloride 102 mmol/L (98-107); Estimated GFR 58.16 (mL/min/1.73m2); Glucose 85 mg/dL (74-106); Lipase 86 U/L (73-393); Potassium 3.8 mmol/L (3.5-5.1); Sodium 138 mmol/L (136-145); Total Protein 5.8 g/dL (6.4-8.2); Troponin I < 0.05 ng/Ml (<0.06)
[2020-03-12 23:55] LABS: Bilirubin Negative (Negative); Blood Negative (Negative); Clarity Clear (Clear); Glucose Negative (Negative); Ketones Negative (Negative); Leukocyte Esterase Negative (Negative); Nitrite Negative (Negative)
[2020-03-12] MEDS: Omnipaque 350 MG/ML 100 ML BTL IJ (23:57)
[2020-03-12] MEDS: Normal Saline - Diluent 50 ML VIAL IV (23:58)
[2020-03-13] VITALS (17 sets, daily range): BP systolic 90–154; BP diastolic 49–92; PULSE 71–91; RESP 13–23; O2SAT 92–100
--- NOTE | 2020-03-13 | NUR.NOTE ---
Nursing Note:2310 Port a cath accessed using 20 g power point. Blood drawn with start, Pt tolerated well. IV fluids infusing. No new c/o at this time
[2020-03-13] MEDS: HYDROmorphone 2 MG/ML VIAL 1 MG IVP (00:46)
--- NOTE | 2020-03-13 00:53 | NUR.NOTE ---
Nursing Note:In room to check on pt. Laying in bed with eyes closed,opens to verbal. .Sats down to 89% on room air,. Pt placed on 2L oxygen per NC. Sats back up to 100%
--- NOTE | 2020-03-13 01:30 | DI.VRAD_ITS ---
PROCEDURE INFORMATION: Exam: CT Abdomen And Pelvis With Contrast Exam date and time: 03/12/2020 12:15 AM Age: 79 years old Clinical indication: Patient HX: Generalized central abdominal pain, known cancer TECHNIQUE: Imaging protocol: Computed tomography of the abdomen and pelvis with intravenous contrast. COMPARISON: CT CHEST/ABD/PEL W 12/29/2019 11:28 AM FINDINGS: Pleural space: There is a large loculated right pleural effusion which was present on the prior study . Probable metastatic disease along the right hemidiaphragm. Mediastinum: Stable soft tissue in the anterior mediastinum. Mild mediastinal adenopathy, partially visualized. Liver: There are innumerable lesions throughout the liver, increased in size and number from prior study. Largest in the right lobe measures 2.1 cm. Gallbladder and bile ducts: Prior cholecystectomy. Pancreas: Unremarkable. Spleen: Unremarkable. Adrenals: Unremarkable. Kidneys and ureters: There is moderate left hydronephrosis and hydroureter, not present on the prior study. Delayed excretion of contrast from the left kidney. The left ureter is dilated down to the pelvis. There is soft tissue abnormality seen along the distal ureter at the level of the femoral head. The ureter distal to this is collapsed. Stomach and bowel: No bowel obstruction. There is colonic diverticulosis. Stable wall thickening in the sigmoid colon which may be chronic. No definite evidence of acute diverticulitis. There is evidence of pelvic floor relaxation. Soft tissue prominence in the distal rectal and vaginal regions is similar to prior study and of unclear etiology. Appendix: The appendix is not identified. No secondary evidence of appendicitis. Intraperitoneal space: Trace free fluid. No free air. Vasculature: There are coronary artery calcifications. Stable 2.8 cm infrarenal aortic aneurysm. No evidence of aneurysm rupture. There are atherosclerotic calcifications of the aorta. Lymph nodes: Abnormal soft tissue is seen in the periaortic, pericaval and right retrocrural regions of the upper abdomen, slightly increased from the prior study. There are multiple peritoneal and omental soft tissue nodules, increased from prior. Largest in the anterior pelvis measures 1.0 cm. Bladder: Unremarkable as visualized. Reproductive: Prior hysterectomy. Bones/joints: There is a 6.7 x 4.4 cm soft tissue mass in the right posterior chest wall which has increased in size and invades the right side of the T10 vertebral body and posterior elements. Destruction of the posterior right 10th rib. Destructive lesion in the right posterior 8th rib and adjacent transverse process. Soft tissues: Stable lobulated soft tissue within the subcutaneous fat the anterior pelvic wall. IMPRESSION: 1. Findings consistent with progression of metastatic disease. There are increased liver lesions, increased retroperitoneal soft tissue and and increased omental/peritoneal metastases. 2. Moderate left hydroureteronephrosis with soft tissue abnormality in the distal left ureter. This may be due to metastatic disease versus less likely a primary ureter abnormality. 3. Large loculated right pleural effusion. There is worsening metastatic disease of the right posterior chest wall, with bony invasion of the lower thoracic spine. 4. Coronary artery calcifications. 5. Stable appearance of abdominal aortic aneurysm. 6. Additional incidental/non-emergent findings, as above. Dictated and Authenticated by: Simba Albright MD. Ordering:NAVID Torres MD
[2020-03-13 01:52] LABS: Troponin I < 0.05 ng/Ml (<0.06)
[2020-03-13] MEDS: Heparin 500 UNITS/5 ML SYRINGE (01:55)
--- NOTE | 2020-03-13 02:21 | NUR.NOTE ---
Nursing Note:0115:Pt laying in bed, eyes closed. Opens to verbal. States pain medicine hasn;'t hepled at this time> closes eyes again and appears to be sleeping
--- NOTE | 2020-03-13 02:24 | NUR.NOTE ---
Nursing Note:0150: Pt now states she is pain free and wants to go home. Dr Baig talking with family member reguarding discharge
== END 2020-03-13 02:05 | disposition home or self-care (01) ==
PROVIDERS: Emergency Provider Student in an Organized Health Care Education/Training Program; PCP Nurse Practitioner
DX: R10.84 Generalized abdominal pain (principal); I71.4 Abdominal aortic aneurysm, without rupture; C79.9 Secondary malignant neoplasm of unspecified site; J90 Pleural effusion, not elsewhere classified; Z79.899 Other long term (current) drug therapy
CPT/HCPCS: 80053; 83690; 93005; 96361; 96374; 96375; 99285; 74177; 81003; 83605; 84484; 85025; 85610; 85730; 93010; 99284; J3490

== ENCOUNTER 2020-03-31 02:20 | Outpatient (RCR) | payer MEDICARE, BC, SELFPAY | END 2020-04-24 23:59 | disposition home or self-care (01) | LOC: INF 02:20 | PROVIDERS: PCP Nurse Practitioner; Visit Provider Internal Medicine Hematology & Oncology | DX: R69 Illness, unspecified (principal) ==